=== PATIENT | female | born 1935 | race Caucasian/White ===

== ENCOUNTER 2018-11-03 19:08 | Emergency (ER) | payer OTHER ==
[2018-11-03] MEDS ORDERED: IBUPROFEN 200 MG TAB PO ONE (20:17)
[2018-11-03] MEDS ORDERED: TETANUS & DIPHTHERIA TOX,ADULT 0.5 ML VIAL ONE (20:17)
[2018-11-03] MEDS ORDERED: IBUPROFEN 400 MG TAB ONE (20:17)
--- NOTE | 2018-11-03 20:43 | RAD REPORT ---
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 First carpometacarpal joint arthritic changes a re noted. Soft tissue swelling is seen along the dorsum of the hand. No fracture identified.
--- NOTE | 2018-11-03 20:54 | ER ---
Nurse's Notes [facility] Name: Jeannette Thomas Age: 83 yrs Sex: Female : 1935 Arrival Date: 11/03/2018 Time: 19:10 Bed 30 Private MD: Julisa Patel Diagnosis: Crushing injury of right hand;Abrasion of right hand Presentation: 11/03 19:24 Presenting complaint: Patient states: "The wind was blowing and it came closed on my aj1 hand" Reports pain to left hand, and increasing swelling since 1400 today. Transition of care: patient was not received from another setting of care. Onset of symptoms was November 03, 2018 at 14:00. Risk Assessment: Do you want to hurt yourself or someone else? Patient reports no desire to harm self or others. Initial Sepsis Screen: Does the patient meet any 2 criteria? No. Patient's initial sepsis screen is negative. Does the patient have a suspected source of infection? No. Patient's initial sepsis screen is negative. Care prior to arrival: None. 19:24 Method Of Arrival: Ambulatory [facility] 19:24 Acuity: OSVALDO 4 aj1 Triage Assessment: 19:27 General: Appears in no apparent distress. comfortable, Behavior is calm, cooperative, aj1 appropriate for age. Pain: Complains of pain in left hand Pain currently is 5 out of 10 on a pain scale. Neuro: Level of Consciousness is awake, alert, obeys commands, Oriented to person, place, time, situation. Cardiovascular: Patient's skin is warm and dry. Respiratory: Airway is patent Respiratory effort is even, unlabored, Respiratory pattern is regular, symmetrical. Musculoskeletal: Range of motion: limited in MCP of left little finger, MCP of left ring finger, MCP of left middle finger and MCP of left index finger Swelling present in left hand. Injury Description: Patient reports that her hand got closed in a car door on accident. Historical: - Allergies: 19:27 Ciprofloxacin; aj1 19:27 Crestor; aj1 19:27 FLU VACCINE; aj1 19:27 Fosamax; aj1 19:27 Januvia; aj1 19:27 Minocycline; aj1 19:27 pneumonia vaccine; aj1 19:27 Sulfa (Sulfonamide Antibiotics); aj1 19:27 Victoza 2-Denny; aj1 - Home Meds: 19:27 aspirin 81 mg Oral chew 1 tab once daily [Active]; folic acid 400 mcg Oral tab 1 tab aj1 once daily [Active]; glipizide 10 mg Oral tab 1 tab 2 times per day for Type 2 Diabetes Mellitus [Active]; hydrochlorothiazide 25 mg Oral tab 1 tab once daily [Active]; Lantus 100 unit/mL Sub-Q soln 14 unit daily for Type 2 Diabetes Mellitus [Active]; lisinopril 10 mg Oral tab 1 tab once daily for Hypertension [Active]; metformin 1,000 mg Oral tab 1 tab 2 times per day for Type 2 Diabetes Mellitus [Active]; metoprolol tartrate 50 mg Oral tab 1 tab 2 times per day for Hypertension [Active]; Nexium 40 mg Oral cpDR 1 cap once daily [Active]; simvastatin 5 mg Oral tab 1 tab once daily for Mixed Hyperlipidemia [Active]; - PMHx: 19:27 Anemia; Diabetes - IDDM; Diverticulitis; Gastric Reflux; hiatal hernia; Hyperlipidemia; aj1 Hypertension; PE; PUD; - Immunization history:: Flu vaccine is not up to date. - Social history:: Smoking status: Patient/guardian denies using tobacco. - Ebola Screening: : Patient denies travel to an Ebola-affected area in the 21 days before illness onset. Screenin:51 Abuse screen: Denies threats or abuse. Denies injuries from another. Nutritional wh screening: No deficits noted. Tuberculosis screening: No symptoms or risk factors identified. Fall Risk None identified. Assessment: 19:53 General: Appears in no apparent distress. comfortable, Behavior is calm, cooperative, wh appropriate for age. Pain: Complains of pain in left hand Pain does not radiate. Pain currently is 4 out of 10 on a pain scale. Quality of pain is described as aching. Neuro: Level of Consciousness is awake, alert, obeys commands, Oriented to person, place, time, situation, Appropriate for age. Cardiovascular: Capillary refill < 3 seconds Edema is 2+ to left ankle and right ankle pitting to left ankle and right ankle. Respiratory: Airway is patent Respiratory effort is even, unlabored, Respiratory pattern is regular, symmetrical. GI: Abdomen is flat, non-distended. : No signs and/or symptoms were reported regarding the genitourinary system. EENT: No signs and/or symptoms were reported regarding the EENT system. Derm: Skin is intact, is healthy with good turgor, Skin is pink, warm \\T\\ dry. normal. Musculoskeletal: Range of motion: intact in all extremities. Injury Description: skin tear in left hand. 21:20 Reassessment: Patient appears in no apparent distress at this time. Patient and/or family updated on plan of care and expected duration. Pain level reassessed. Patient is alert, oriented x 3, equal unlabored respirations, skin warm/dry/pink. Patient states feeling better. Vital Signs: 19:27 BP 132 / 70; Pulse 78; Resp 18; Temp 97.5; Pulse Ox 97% on R/A; Weight 83.01 kg (R); aj1 Height 5 ft. 5 in. (165.10 cm) (R); Pain 5/10; 19:55 BP 146 / 87; Pulse 99; Resp 18; Temp 98.4; Pulse Ox 97% ; wh 21:21 BP 110 / 76; Pulse 84; Resp 18; Pulse Ox 99% on R/A; wh 19:27 Body Mass Index 30.45 (83.01 kg, 165.10 cm) aj1 ED Course: 19:10 Patient arrived in ED. rg4 19:11 Julisa Patel MD is Private Physician. rg4 19:26 Triage completed. aj1 19:27 Arm band placed on Patient placed in an exam room. aj1 19:38 Aníbal Mo MD is Attending Physician. kdr 19:51 Mart Cooney is Primary Nurse. 19:51 Patient has correct armband on for positive identification. Bed in low position. Call light in reach. Side rails up X 1. Pulse ox on. NIBP on. 20:27 Hand Left 3 View XRAY In Process Unspecified. EDMS 20:53 Julisa Patel MD is Referral Physician. kdr 21:22 No provider procedures requiring assistance completed. Patient did not have IV access during this emergency room visit. 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 Exp: 07/08/2020. Lot #: [id number]. } Route: IM; Site: right deltoid; 21:05 Follow up: Response: No adverse reaction mg2 20:16 Drug: Motrin 600 mg Route: PO; 21:06 Follow up: Response: No adverse reaction mg2 Outcome: 20:54 Discharge ordered by . ian 21:22 Discharged to home ambulatory. 21:22 Condition: good 21:22 Discharge instructions given to patient, Instructed on discharge instructions, follow up and referral plans. wound care, Demonstrated understanding of instructions, follow-up care, wound care. 21:23 Patient left the ED. Signatures: Dispatcher [employer] EDFlori Ko RN RN aj1 Aníbal Mo MD MD kdr Garcia, Rubi rg4 Mart Cooney Hugo Contreras RN RN mg2
--- NOTE | 2018-11-03 20:54 | EDPHYS ---
Physician Documentation [facility] Name: Jeannette Thomas Age: 83 yrs Sex: Female : 1935 Arrival Date: 11/03/2018 Time: 19:10 Bed 30 Private MD: Julisa Patel ED Physician Aníbal Mo HPI: 11/03 19:51 This 83 yrs old Female presents to ER via Ambulatory with complaints of Hand kdr Injury. 19:51 The patient or guardian reports decreased range of motion, injury, pain, swelling, kdr tenderness. The complaints affect the left hand diffusely. Context: The problem was sustained at home, resulted from a crush injury, by a car door. Onset: The symptoms/episode began/occurred acutely, at 14:00. Modifying factors: The symptoms are alleviated by nothing, the symptoms are aggravated by movement. Associated signs and symptoms: The patient has no apparent associated signs or symptoms. Severity of symptoms: At their worst the symptoms were mild, in the emergency department the symptoms are unchanged. The patient has not experienced similar symptoms in the past. The patient has not recently seen a physician. Historical: - Allergies: 19:27 Ciprofloxacin; aj1 19:27 Crestor; aj1 19:27 FLU VACCINE; aj1 19:27 Fosamax; aj1 19:27 Januvia; aj1 19:27 Minocycline; aj1 19:27 pneumonia vaccine; aj1 19:27 Sulfa (Sulfonamide Antibiotics); aj1 19:27 Victoza 2-Denny; aj1 - Home Meds: 19:27 aspirin 81 mg Oral chew 1 tab once daily [Active]; folic acid 400 mcg Oral tab 1 tab aj1 once daily [Active]; glipizide 10 mg Oral tab 1 tab 2 times per day for Type 2 Diabetes Mellitus [Active]; hydrochlorothiazide 25 mg Oral tab 1 tab once daily [Active]; Lantus 100 unit/mL Sub-Q soln 14 unit daily for Type 2 Diabetes Mellitus [Active]; lisinopril 10 mg Oral tab 1 tab once daily for Hypertension [Active]; metformin 1,000 mg Oral tab 1 tab 2 times per day for Type 2 Diabetes Mellitus [Active]; metoprolol tartrate 50 mg Oral tab 1 tab 2 times per day for Hypertension [Active]; Nexium 40 mg Oral cpDR 1 cap once daily [Active]; simvastatin 5 mg Oral tab 1 tab once daily for Mixed Hyperlipidemia [Active]; - PMHx: 19:27 Anemia; Diabetes - IDDM; Diverticulitis; Gastric Reflux; hiatal hernia; Hyperlipidemia; aj1 Hypertension; PE; PUD; - Immunization history:: Flu vaccine is not up to date. - Social history:: Smoking status: Patient/guardian denies using tobacco. - Ebola Screening: : Patient denies travel to an Ebola-affected area in the 21 days before illness onset. ROS: 19:51 Constitutional: Negative for fever, chills, and weight loss. kdr 19:51 MS/extremity: Positive for injury or acute deformity, decreased range of motion, ecchymosis, laceration, pain, swelling, tenderness, of the dorsal aspect of proximal phalanx of left index finger, dorsal aspect of proximal phalanx of left middle finger and dorsum of left hand. Exam: 19:51 Constitutional: This is a well developed, well nourished patient who is awake, alert, kdr and in no acute distress. 19:51 Musculoskeletal/extremity: Extremities: grossly normal except: noted in the dorsal aspect of proximal phalanx of left index finger, dorsal aspect of proximal phalanx of left middle finger and dorsum of left hand: ROM: no acute changes, intact in all extremities, Circulation is intact in all extremities. Sensation intact. Vital Signs: 19:27 BP 132 / 70; Pulse 78; Resp 18; Temp 97.5; Pulse Ox 97% on R/A; Weight 83.01 kg (R); aj1 Height 5 ft. 5 in. (165.10 cm) (R); Pain 5/10; 19:55 BP 146 / 87; Pulse 99; Resp 18; Temp 98.4; Pulse Ox 97% ; wh 21:21 BP 110 / 76; Pulse 84; Resp 18; Pulse Ox 99% on R/A; wh 19:27 Body Mass Index 30.45 (83.01 kg, 165.10 cm) aj1 MDM: 19:51 Data reviewed: vital signs, nurses notes, radiologic studies. Counseling: I had a kdr detailed discussion with the patient and/or guardian regarding: the historical points, exam findings, and any diagnostic results supporting the discharge/admit diagnosis, radiology results, the need for outpatient follow up. 20:54 Patient medically screened. [facility] 11/03 19:51 Order name: Hand Left 3 View XRAY; Complete Time: 20:52 [facility] 11/03 19:51 Order name: Misc. Order: Clean and dress wound on hand. 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 Exp: 07/08/2020. Lot #: [id number]. } Route: IM; Site: right deltoid; 21:05 Follow up: Response: No adverse reaction mg2 20:16 Drug: Motrin 600 mg Route: PO; 21:06 Follow up: Response: No adverse reaction mg2 Disposition: 11/03/18 20:54 Discharged to Home. Impression: Crushing injury of right hand, Abrasion of right hand. - Condition is Stable. - Discharge Instructions: VIS, Tetanus, Diphtheria (Td) - CDC, Abrasion, [id number], Crush Injury of the Hand, [id number]. - Prescriptions for Ibuprofen 600 mg Oral Tablet - take 1 tablet by ORAL route every 6 hours As needed take with food; 30 tablet. - Medication Reconciliation Form, Thank You Letter form. - Follow up: Julisa Patel MD; When: 2 - 3 days; Reason: If symptoms return, Further diagnostic work-up, Recheck today's complaints, Continuance of care, Re-evaluation by your physician. - Problem is new. - Symptoms have improved. Signatures: Dispatcher [employer] [facility] Flori Alejandro RN RN aj1 Aníbal Mo MD MD [facility] Mart Cooney Hugo Contreras RN mg2 Corrections: (The following items were deleted from the chart) 21:23 20:54 11/03/2018 20:54 Discharged to Home. Impression: Crushing injury of right hand; wh Abrasion of right hand. Condition is Stable. Forms are Medication Reconciliation Form, Thank You Letter, Antibiotic Education, Prescription Opioid Use. Follow up: Julisa Patel; When: 2 - 3 days; Reason: If symptoms return, Further diagnostic work-up, Recheck today's complaints, Continuance of care, Re-evaluation by your physician. Problem is new. Symptoms have improved. kdr
== END 2018-11-03 21:23 | disposition home or self-care (01) ==
LOC: ER 19:08
DX: S60.511A Abrasion of right hand, initial encounter (principal); S67.21XA Crushing injury of right hand, initial encounter; W23.0XXA Caught, crushed, jammed, or pinched between moving objects, initial encounter; Y93.9 Activity, unspecified; Y92.009 Unspecified place in unspecified non-institutional (private) residence as the place of occurrence of the external cause; Z23 Encounter for immunization; Z79.4 Long term (current) use of insulin; Z79.82 Long term (current) use of aspirin; Z88.2 Allergy status to sulfonamides; Z88.3 Allergy status to other anti-infective agents; Z88.7 Allergy status to serum and vaccine; Z88.8 Allergy status to other drugs, medicaments and biological substances; I10 Essential (primary) hypertension; E11.9 Type 2 diabetes mellitus without complications; E78.5 Hyperlipidemia, unspecified
CPT/HCPCS: 90471; 90714; 99283

== ENCOUNTER 2019-07-20 04:04 | Emergency (ER) | payer OTHER ==
--- OUTSIDE RECORDS SUMMARY | 2019-07-20 04:06 | XMS REPORT ---
:1935 [facility] Address [address] [place] [address] Care Team Providers Name Role Phone Unavailable Unavailable Unavailable Payers Payer Name Policy Type Policy Number Effective Date Expiration Date Problems This patient has no known problems. Allergies, Adverse Reactions, Alerts Allergy Name Allergy Status Severity Reaction(s) Onset Inactive Treating Comments Type Date Date Clinician atorvastatin DA Active U calcium 10-14 00:00: 00 rosuvastatin DA Active U calcium 10-14 00:00: 00 Sulfa DA Active U (Sulfonamide 10-14 Antibiotics) 00:00: 00 cefaclor DA Active U 10-14 00:00: 00 alendronate DA Active U sodium 10-14 00:00: 00 Medications This patient has no known medications. Encounters Start End Encounter Admission Attending Care Care Encounter Date/Time Date/Time Type Type Clinicians Facility Department ID 2019-01-11 2019-01-[address] [facility] [id number] 09:10:00 09:10:00
[2019-07-20] MEDS ORDERED: ASPIRIN 81 MG CHEWABLE TABLET ONE (04:40)
[2019-07-20] MEDS ORDERED: NA CHLORIDE 0.9% 1,000 ML ONE (04:41)
[2019-07-20] MEDS ORDERED: ONDANSETRON 4 MG/2 ML VIAL ONE (04:41)
[2019-07-20] MEDS ORDERED: MECLIZINE HCL 12.5 MG TAB ONE (04:41)
[2019-07-20 04:44] LABS: Protime INR 0.91
[2019-07-20 04:46] LABS: Absolute Lymphocytes (CBC) 1.4 K/uL (0.7-4.9); Basophils % 1.6 % (0-1.3); Hematocrit 35.8 % (36.0-45.0); RBC Red Blood Cell Count 3.84 M/uL (3.86-4.86)
[2019-07-20 05:09] LABS: ALT/SGPT 14 U/L (12-78); AST/SGOT 9 U/L (15-37); Albumin 3.2 g/dL (3.4-5.0); Alkaline Phosphatase 40 U/L (45-117); BUN Blood Urea Nitrogen 16 mg/dL (7-18); Bicarbonate 23 mmol/L (21-32); Bilirubin Direct < 0.1 mg/dL (0-0.2); Bilirubin Total 0.2 mg/dL (0.2-1.0); C-Reactive Protein < 2.90 mg/L (<3.00); Glucose Level 205 mg/dL (74-106); Magnesium 1.7 mg/dL (1.8-2.4); NT PRO-BNP 419 pg/mL (<450); Protein, Total 6.3 g/dL (6.4-8.2); Sodium Level 136 mmol/L (136-145); Troponin (Emerg Dept Use Only) < 0.02 ng/mL (0.0-0.045)
[2019-07-20] MEDS ORDERED: MAGNESIUM SULFATE 1 gm IVPB 1 GM/100 ML BAG IV ONE (05:19)
[2019-07-20 06:19] LABS: Urine Blood NEGATIVE (NEG); Urine Glucose TRACE (NEG); Urine Protein NEGATIVE (NEG); Urine Specific Gravity 1.025 (1.005-1.030)
--- NOTE | 2019-07-20 07:20 | EDPHYS ---
Physician Documentation [facility] Name: Jeannette Thomas Age: 84 yrs Sex: Female : 1935 Arrival Date: 07/20/2019 Time: 04:07 Bed 20 Private MD: TRUMAN Physician Angel Cooley HPI: 07/19 04:29 This 84 yrs old Female presents to ER via Ambulatory with complaints of heaven Nausea, Dizziness. 04:29 The patient presents to the emergency department with nausea, vomiting. heaven 04:30 Onset: The symptoms/episode began/occurred just prior to arrival. Possible causes: heaven unknown. The symptoms are aggravated by movement, The symptoms are alleviated by remaining still. The patient presents with sense of spinning. Context: occurred at home. Modifying factors: The symptoms are alleviated by closing eyes, holding head still, the symptoms are aggravated by movement of head, standing up, changing position. Associated signs and symptoms: Pertinent positives: nausea. Severity of symptoms: At their worst the symptoms were mild in the emergency department the symptoms are unchanged. Historical: - Allergies: 04:31 Ciprofloxacin; bb 04:31 Crestor; bb 04:31 FLU VACCINE; bb 04:31 Fosamax; bb 04:31 Januvia; bb 04:31 Minocycline; bb 04:31 pneumonia vaccine; bb 04:31 Sulfa (Sulfonamide Antibiotics); bb 04:31 Victoza 2-Denny; bb - Home Meds: 04:31 aspirin 81 mg Oral chew 1 tab once daily [Active]; folic acid 400 mcg Oral tab 1 tab bb once daily [Active]; glipizide 10 mg Oral tab 1 tab 2 times per day for Type 2 Diabetes Mellitus [Active]; Lantus 100 unit/mL Sub-Q soln 18 unit daily for Type 2 Diabetes Mellitus [Active]; metformin 1,000 mg Oral tab 1 tab 2 times per day for Type 2 Diabetes Mellitus [Active]; Nexium 40 mg Oral cpDR 1 cap once daily [Active]; lisinopril 10 mg Oral tab 1 tab once daily for Hypertension [Active]; metoprolol tartrate 50 mg Oral tab 1 tab 2 times per day for Hypertension [Active]; hydrochlorothiazide 25 mg Oral tab 1 tab once daily [Active]; simvastatin 5 mg Oral tab 1 tab once daily for Mixed Hyperlipidemia [Active]; calcium 1200mg/ Vit D 3 1000mcg daily [Active]; methenamine hippurate 1 gram oral tab 1 tab 2 times per day [Active]; estradol cream [Active]; iron sulfate 325 mg daily [Active]; - PMHx: 04:31 Anemia; Diabetes - IDDM; Diverticulitis; Gastric Reflux; hiatal hernia; Hyperlipidemia; bb Hypertension; PE; PUD; epidural steroid injections; colitis; irregular heart beat; peptic ulcer; colonoscopy; - PSHx: 04:31 Hysterectomy; cyctocyle and rectocyle repair; parathyroid surgery; endoscopy; bb - Immunization history:: Adult Immunizations up to date. - Social history:: Smoking status: Patient denies any tobacco usage or history of. - Family history:: not pertinent. ROS: 04:30 Constitutional: Negative for fever, chills, and weight loss, Eyes: Negative for injury, heaven pain, redness, and discharge, ENT: Negative for injury, pain, and discharge, Neck: Negative for injury, pain, and swelling, Cardiovascular: Negative for chest pain, palpitations, and edema, Respiratory: Negative for shortness of breath, cough, wheezing, and pleuritic chest pain, Abdomen/GI: Negative for abdominal pain, nausea, vomiting, diarrhea, and constipation, Back: Negative for injury and pain, : Negative for injury, bleeding, discharge, and swelling, MS/Extremity: Negative for injury and deformity, Skin: Negative for injury, rash, and discoloration, Psych: Negative for depression, anxiety, suicide ideation, homicidal ideation, and hallucinations, Allergy/Immunology: Negative for hives, rash, and allergies, Endocrine: Negative for neck swelling, polydipsia, polyuria, polyphagia, and marked weight changes. 04:30 Neuro: Positive for dizziness. Exam: 04:30 Constitutional: This is a well developed, well nourished patient who is awake, alert, heaven and in no acute distress. Head/Face: Normocephalic, atraumatic. Eyes: Pupils equal round and reactive to light, extra-ocular motions intact. Lids and lashes normal. Conjunctiva and sclera are non-icteric and not injected. Cornea within normal limits. Periorbital areas with no swelling, redness, or edema. ENT: Nares patent. No nasal discharge, no septal abnormalities noted. Tympanic membranes are normal and external auditory canals are clear. Oropharynx with no redness, swelling, or masses, exudates, or evidence of obstruction, uvula midline. Mucous membranes moist. Neck: Trachea midline, no thyromegaly or masses palpated, and no cervical lymphadenopathy. Supple, full range of motion without nuchal rigidity, or vertebral point tenderness. No Meningismus. Chest/axilla: Normal chest wall appearance and motion. Nontender with no deformity. No lesions are appreciated. Cardiovascular: Regular rate and rhythm with a normal S1 and S2. No gallops, murmurs, or rubs. Normal PMI, no JVD. No pulse deficits. Respiratory: Lungs have equal breath sounds bilaterally, clear to auscultation and percussion. No rales, rhonchi or wheezes noted. No increased work of breathing, no retractions or nasal flaring. Abdomen/GI: Soft, non-tender, with normal bowel sounds. No distension or tympany. No guarding or rebound. No evidence of tenderness throughout. Back: No spinal tenderness. No costovertebral tenderness. Full range of motion. Female : Normal external genitalia. Skin: Warm, dry with normal turgor. Normal color with no rashes, no lesions, and no evidence of cellulitis. MS/ Extremity: Pulses equal, no cyanosis. Neurovascular intact. Full, normal range of motion. Neuro: Awake and alert, GCS 15, oriented to person, place, time, and situation. Cranial nerves II-XII grossly intact. Motor strength 5/5 in all extremities. Sensory grossly intact. Cerebellar exam normal. Normal gait. Psych: Awake, alert, with orientation to person, place and time. Behavior, mood, and affect are within normal limits. Vital Signs: 04:18 BP 172 / 61; Pulse 76; Resp 16 S; Temp 98.6(O); Pulse Ox 99% on R/A; Weight 81.65 kg bb (R); Height 5 ft. 4 in. (162.56 cm) (R); Pain 0/10; 04:35 BP 134 / 54; Pulse 77; Resp 18; Temp 98.5; Pulse Ox 99% ; Pain 0/10; jv1 05:30 BP 126 / 52; Pulse 89; Resp 18; Temp 98; Pulse Ox 99% ; Pain 2/10; jv1 06:47 BP 118 / 47; Pulse 82; Resp 18; Temp 98.5; Pulse Ox 99% ; Pain 0/10; jv1 07:31 BP 164 / 77; Pulse 80; Resp 23; Pulse Ox 100% ; bp 04:18 Body Mass Index 30.90 (81.65 kg, 162.56 cm) bb MDM: 04:10 Patient medically screened. [facility] 04:32 Data reviewed: vital signs, nurses notes, lab test result(s), EKG, radiologic studies, [facility] CT scan, doppler, plain films. 07/19 04:28 Order name: Glucose, Ancillary Testing; Complete Time: 05:11 EDMS 07/19 04:29 Order name: Basic Metabolic Panel; Complete Time: 05:11 [facility] 07/19 04:29 Order name: CBC with Diff; Complete Time: 05:11 [facility] 07/19 04:29 Order name: LFT's; Complete Time: 05:11 [facility] 07/19 04:29 Order name: Magnesium; Complete Time: 05:11 [facility] 07/19 04:29 Order name: NT PRO-BNP; Complete Time: 05:11 [facility] 07/19 04:29 Order name: PT-INR; Complete Time: 05:11 [facility] 07/19 04:29 Order name: Troponin (emerg Dept Use Only); Complete Time: 05:11 [facility] 07/19 04:29 Order name: XRAY Chest (1 view) [facility] 07/19 04:29 Order name: Urine Culture [facility] 07/19 04:29 Order name: CT Head Brain wo Cont [facility] 07/19 04:29 Order name: Sed Rate; Complete Time: 05:11 [facility] 07/19 04:29 Order name: CRP; Complete Time: 05:11 [facility] 07/19 06:11 Order name: Urine Dipstick--Ancillary (enter results) ar5 07/19 04:29 Order name: Cardiac monitoring; Complete Time: 04:37 [facility] 07/19 04:29 Order name: EKG - Nurse/Tech; Complete Time: 04:37 [facility] 07/19 04:29 Order name: IV Saline Lock; Complete Time: 04:37 [facility] 07/19 04:29 Order name: Labs collected and sent; Complete Time: 04:37 [facility] 07/19 04:29 Order name: O2 Per Protocol; Complete Time: 04:37 [facility] 07/19 04:29 Order name: O2 Sat Monitoring; Complete Time: 04:38 [facility] 07/19 04:29 Order name: Urine Dipstick-Ancillary (obtain specimen); Complete Time: 06:50 [facility] 07/19 04:29 Order name: US Carotid Artery Bilateral heaven Administered Medications: 04:40 Drug: Meclizine 50 mg Route: PO; jv1 05:59 Follow up: Response: No adverse reaction jv1 04:40 Drug: Zofran (Ondansetron) 4 mg Route: IVP; Site: left antecubital; jv1 05:59 Follow up: Response: No adverse reaction; Nausea is decreased jv1 04:40 Drug: Aspirin 81 mg Route: PO; jv1 06:00 Follow up: Response: No adverse reaction jv1 04:40 Drug: NS 0.9% 1000 ml Route: IV; Rate: 1 bolus; Site: left antecubital; jv1 06:13 Follow up: Response: No adverse reaction; IV Status: Completed infusion jv1 05:20 Drug: Magnesium Sulfate 1 grams Route: IVPB; Infused Over: 1 hrs; Site: left jv1 antecubital; 06:49 Follow up: Response: No adverse reaction; IV Status: Completed infusion jv1 Disposition: 07/20/19 07:19 Discharged to Home. Impression: Dizziness and giddiness, Vertiginous syndromes in diseases classified elsewhere, unspecified ear, Hypomagnesemia, Type 1 diabetes mellitus. - Condition is Stable. - Discharge Instructions: Type 1 Diabetes Mellitus, Diagnosis, Adult, Dizziness, Hypomagnesemia, Diabetes Mellitus and Food, Aspirin and Your Heart, Dizziness, [id number], Type 1 Diabetes Mellitus, Self Care, Adult, Type 1 Diabetes Mellitus, Diagnosis, Adult, [id number], Type 1 Diabetes Mellitus, Self Care, Adult, [id number]-[id number]. - Prescriptions for Meclizine 25 mg Oral Tablet - take 1 tablet by ORAL route every 8 hours As needed; 30 tablet. Zofran 4 mg Oral Tablet - take 1 tablet by ORAL route every 12 hours As needed; 14 tablet. - Medication Reconciliation Form, Thank You Letter, Antibiotic Education, Prescription Opioid Use form. - Follow up: Private Physician; When: 2 - 3 days; Reason: Recheck today's complaints, Continuance of care, Re-evaluation by your physician. Follow up: Sulaiman Dalal; When: 2 - 3 days; Reason: Recheck today's complaints, Re-evaluation by your physician. - Problem is new. - Symptoms have improved. Signatures: Dispatcher [employer] EDMS Angel Cooley MD MD cha Ballard, Brenda, RN RN Oscar Wills, RN RN Mavis Molina, RN RN jv1 Corrections: (The following items were deleted from the chart) 07:47 07:19 07/20/2019 07:19 Discharged to Home. Impression: Dizziness and giddiness; bp Vertiginous syndromes in diseases classified elsewhere, unspecified ear; Hypomagnesemia; Type 1 diabetes mellitus. Condition is Stable. Discharge Instructions: Type 1 Diabetes Mellitus, Diagnosis, Adult, Dizziness, Hypomagnesemia, Diabetes Mellitus and Food, Aspirin and Your Heart, Dizziness, [id number], Type 1 Diabetes Mellitus, Self Care, Adult, Type 1 Diabetes Mellitus, Diagnosis, Adult, Hmuo-yr-Snrt, Type 1 Diabetes Mellitus, Self Care, Adult, [id number]. Prescriptions for Meclizine 25 mg Oral Tablet - take 1 tablet by ORAL route every 8 hours As needed; 30 tablet, Zofran 4 mg Oral Tablet - take 1 tablet by ORAL route every 12 hours As needed; 14 tablet. and Forms are Medication Reconciliation Form, Thank You Letter, Antibiotic Education, Prescription Opioid Use. Follow up: Private Physician; When: 2 - 3 days; Reason: Recheck today's complaints, Continuance of care, Re-evaluation by your physician. Follow up: Sulaiman Dalal; When: 2 - 3 days; Reason: Recheck today's complaints, Re-evaluation by your physician. Problem is new. Symptoms have improved. heaven
--- NOTE | 2019-07-20 07:20 | ER ---
Nurse's Notes [facility] Name: Jeannette Thomas Age: 84 yrs Sex: Female : 1935 Arrival Date: 07/20/2019 Time: 04:07 Bed 20 Private MD: Diagnosis: Dizziness and giddiness;Vertiginous syndromes in diseases classified elsewhere, unspecified ear;Hypomagnesemia;Type 1 diabetes mellitus Presentation: 07/19 04:18 Chief complaint: Patient states: she woke up this morning about 0200 feeling dizzy, bb nauseous, the room spinning, anytime she moves her head she feels dizzy and nauseous. Coronavirus screen: Patient denies fever greater than 100.4F, cough, shortness of breath, or difficulty breathing. Proceed with normal triage process. Ebola Screen: No symptoms or risks identified at this time. Initial Sepsis Screen: Does the patient meet any 2 criteria? No. Patient's initial sepsis screen is negative. Does the patient have a suspected source of infection? No. Patient's initial sepsis screen is negative. Risk Assessment: Do you want to hurt yourself or someone else? Patient reports no desire to harm self or others. Onset of symptoms was July 20, 2019. 04:18 Method Of Arrival: Ambulatory bb 04:18 Acuity: OSVALDO 3 bb Triage Assessment: 05:02 General: Behavior is calm, cooperative, appropriate for age. jv1 Historical: - Allergies: 04:31 Ciprofloxacin; bb 04:31 Crestor; bb 04:31 FLU VACCINE; bb 04:31 Fosamax; bb 04:31 Januvia; bb 04:31 Minocycline; bb 04:31 pneumonia vaccine; bb 04:31 Sulfa (Sulfonamide Antibiotics); bb 04:31 Victoza 2-Denny; bb - Home Meds: 04:31 aspirin 81 mg Oral chew 1 tab once daily [Active]; folic acid 400 mcg Oral tab 1 tab bb once daily [Active]; glipizide 10 mg Oral tab 1 tab 2 times per day for Type 2 Diabetes Mellitus [Active]; Lantus 100 unit/mL Sub-Q soln 18 unit daily for Type 2 Diabetes Mellitus [Active]; metformin 1,000 mg Oral tab 1 tab 2 times per day for Type 2 Diabetes Mellitus [Active]; Nexium 40 mg Oral cpDR 1 cap once daily [Active]; lisinopril 10 mg Oral tab 1 tab once daily for Hypertension [Active]; metoprolol tartrate 50 mg Oral tab 1 tab 2 times per day for Hypertension [Active]; hydrochlorothiazide 25 mg Oral tab 1 tab once daily [Active]; simvastatin 5 mg Oral tab 1 tab once daily for Mixed Hyperlipidemia [Active]; calcium 1200mg/ Vit D 3 1000mcg daily [Active]; methenamine hippurate 1 gram oral tab 1 tab 2 times per day [Active]; estradol cream [Active]; iron sulfate 325 mg daily [Active]; - PMHx: 04:31 Anemia; Diabetes - IDDM; Diverticulitis; Gastric Reflux; hiatal hernia; Hyperlipidemia; bb Hypertension; PE; PUD; epidural steroid injections; colitis; irregular heart beat; peptic ulcer; colonoscopy; - PSHx: 04:31 Hysterectomy; cyctocyle and rectocyle repair; parathyroid surgery; endoscopy; bb - Immunization history:: Adult Immunizations up to date. - Social history:: Smoking status: Patient denies any tobacco usage or history of. - Family history:: not pertinent. Screenin:38 Abuse screen: Denies threats or abuse. Nutritional screening: No deficits noted. ea Tuberculosis screening: No symptoms or risk factors identified. Fall Risk None identified. Assessment: 04:30 General: Appears in no apparent distress. comfortable, well groomed. Pain: Complains of jv1 pain in back of the neck Pain does not radiate. Pain currently is 3 out of 10 on a pain scale. Neuro: Level of Consciousness is awake, alert, obeys commands, Oriented to person, place, time, situation, Appropriate for age Candy Vendor are equal bilaterally Moves all extremities. Full function Speech is normal, Facial symmetry appears normal, Reports dizziness, since 02:00 am today Denies weakness. Cardiovascular: Denies chest pain, Heart tones S1 S2 present Capillary refill < 3 seconds. Respiratory: Airway is patent Respiratory effort is even, unlabored, Respiratory pattern is regular, symmetrical, Breath sounds are clear bilaterally. GI: Abdomen is round non-distended, Bowel sounds present X 4 quads. Abd is soft and non tender. : No signs and/or symptoms were reported regarding the genitourinary system. EENT: No signs and/or symptoms were reported regarding the EENT system. Derm: Skin is intact, is healthy with good turgor. Musculoskeletal: No signs and/or symptoms reported regarding the musculoskeletal system. Capillary refill < 3 seconds, Range of motion: intact in all extremities. 04:58 Reassessment: pt taken to CT. jv1 05:07 Reassessment: pt back from CT. jv1 05:58 Reassessment: Patient appears in no apparent distress at this time. No changes from jv1 previously documented assessment. Patient and/or family updated on plan of care and expected duration. Pain level reassessed. Patient is alert, oriented x 3, equal unlabored respirations, skin warm/dry/pink. 06:47 Reassessment: Patient appears in no apparent distress at this time. No changes from jv1 previously documented assessment. Patient and/or family updated on plan of care and expected duration. Pain level reassessed. Patient is alert, oriented x 3, equal unlabored respirations, skin warm/dry/pink. Patient states feeling better. Patient states symptoms have improved. 07:00 Reassessment: RECD REPORT FROM MAVIS RODRIGUEZ. 84YO WF P/W VERTIGO AND NAUSEA. PT TO U/S. bp 07:20 Reassessment: PT RETURNED FROM U/S. bp 07:30 Reassessment: D/C ON HOLD FOR RAD AND LAB RESULTS. bp 07:45 Reassessment: PT D/C HOME AMBULATORY WITH STEADY GAIT, DX WITH DIZZINESS. bp Vital Signs: 04:18 BP 172 / 61; Pulse 76; Resp 16 S; Temp 98.6(O); Pulse Ox 99% on R/A; Weight 81.65 kg bb (R); Height 5 ft. 4 in. (162.56 cm) (R); Pain 0/10; 04:35 BP 134 / 54; Pulse 77; Resp 18; Temp 98.5; Pulse Ox 99% ; Pain 0/10; jv1 05:30 BP 126 / 52; Pulse 89; Resp 18; Temp 98; Pulse Ox 99% ; Pain 2/10; jv1 06:47 BP 118 / 47; Pulse 82; Resp 18; Temp 98.5; Pulse Ox 99% ; Pain 0/10; jv1 07:31 BP 164 / 77; Pulse 80; Resp 23; Pulse Ox 100% ; bp 04:18 Body Mass Index 30.90 (81.65 kg, 162.56 cm) ED Course: 04:07 Patient arrived in ED. cl3 04:10 Angel Cooley MD is Attending Physician. heaven 04:21 Triage completed. bb 04:30 Inserted saline lock: 20 gauge in left antecubital area, using aseptic technique. Blood ea collected. 04:31 Arm band placed on Patient placed in an exam room. EKG completed in triage. Results bb shown to MD. 04:38 Placed in gown. Bed in low position. Call light in reach. Side rails up X2. ea 05:11 XRAY Chest (1 view) In Process Unspecified. EDMS 05:19 CT Head Brain wo Cont In Process Unspecified. EDMS 07:19 Sulaiman Dalal MD is Referral Physician. heaven 07:29 Oscar Conn, JENNIFER is Primary Nurse. bp 07:40 US Carotid Artery Bilateral In Process Unspecified. EDMS 07:45 No provider procedures requiring assistance completed. IV discontinued, intact, bp bleeding controlled, No redness/swelling at site. Pressure dressing applied. Administered Medications: 04:40 Drug: Meclizine 50 mg Route: PO; jv1 05:59 Follow up: Response: No adverse reaction jv1 04:40 Drug: Zofran (Ondansetron) 4 mg Route: IVP; Site: left antecubital; jv1 05:59 Follow up: Response: No adverse reaction; Nausea is decreased jv1 04:40 Drug: Aspirin 81 mg Route: PO; jv1 06:00 Follow up: Response: No adverse reaction jv1 04:40 Drug: NS 0.9% 1000 ml Route: IV; Rate: 1 bolus; Site: left antecubital; jv1 06:13 Follow up: Response: No adverse reaction; IV Status: Completed infusion jv1 05:20 Drug: Magnesium Sulfate 1 grams Route: IVPB; Infused Over: 1 hrs; Site: left jv1 antecubital; 06:49 Follow up: Response: No adverse reaction; IV Status: Completed infusion jv1 Outcome: 07:19 Discharge ordered by . heaven 07:46 Discharged to home ambulatory. bp 07:46 Condition: stable 07:46 Discharge instructions given to patient, Instructed on discharge instructions, follow up and referral plans. medication usage, Demonstrated understanding of instructions, follow-up care, medications, Prescriptions given X 2. 07:47 Patient left the ED. bp Signatures: Dispatcher [employer] Angel Starr MD MD cha Ballard, Brenda, RN RN bb Anastasia Rosales, RN RN Oscar Collier RN RN bp Mavis Alex RN RN Steven Garsia cl3
[2019-07-20 07:59] VITALS: TEMP 98.5
[2019-07-20 08:01] VITALS: BP 164/77; O2SAT 100
--- NOTE | 2019-07-20 08:39 | RAD REPORT ---
EXAM DESCRIPTION: USCarotid Artery Bilateral07/20/2019 7:40 am CLINICAL HISTORY: syncope COMPARISON: None FINDINGS: The velocity of the right internal carotid artery equals 72 cm/sec. The right ICA/CCA rati o 0.9 The velocity of the left internal carotid artery equals 121 cm/sec. The left ICA/CCA ratio 1. Mild plaque is present within the carotid arteries. The vertebral arteries demonstrate antegrade flow IMPRESSION: Mild plaque within the carotid arteries without evidence of a hemodynamically significan t stenosis NASCET criteria used. Mild 0-49% stenosis Moderate 50-69% stenosis Severe 70-99% stenosis
--- NOTE | 2019-07-20 09:09 | RAD REPORT ---
EXAM DESCRIPTION: Waldemar Single View07/20/2019 5:10 am CLINICAL HISTORY: Chest pain COMPARISON: 2016 FINDINGS: The lungs appear clear of acute infiltrate. The heart is normal size. Prominent right epi cardial fat IMPRESSION: No acute abnormalities displayed
--- NOTE | 2019-07-20 11:30 | RAD REPORT ---
EXAM DESCRIPTION: CT - Head Brain Wo Cont - 07/20/2019 6:18 am CLINICAL HISTORY: DIZZINESS COMPARISON: None. TECHNIQUE: CT HEAD WITHOUT IV CONTRAST on 07/20/2019 4:29 AM CDT This exam was performed according to our departmental dose-optimization program, which includes autom ated exposure control, adjustment of the mA and/or kV according To patient size and/or use of iterative reconstruction technique. FINDINGS: There is no acute hemorrhage, mass effect or midline shift. There is a small focus of ence phalomalacia within the right cerebellum. There is no hydrocephalus. There is no significant volume l oss for age. There are mild patchy hypodensities within the periventricular and subcortical white mat ter, consistent with microangiopathic ischemic changes. The calvarium is intact. Orbits and globes are unremarkable. The paranasal sinuses are clear. Mastoid air cells are clear. IMPRESSION: No acute intracranial findings. Electronically signed by: Blu Quigley MD 07/20/2019 5:29 AM CDT Due to temporary technical issues with the PACS/Fluency reporting system, reports are being signed by the in house radiologist as a courtesy to ensure prompt reporting. The interpreting radiologist is f ully responsible for the content of the report.
--- NOTE | 2019-07-22 14:24 | EKG ---
Test Date: 2019-07-20 Test Time: 04:19:16 [employer] Forms Builder: LUIS F MEASUREMENT RESULTS: Intervals: Rate: 73 MT: 140 QRSD: 94 QT: 410 QTc: 451 [place]: P: 26 MT: 140 QRS: -1 T: 37 INTERPRETIVE STATEMENTS: Normal sinus rhythm Inferior infarct, age undetermined Possible Anterior infarct, age undetermined Abnormal ECG Compared to ECG 04/20/2016 23:42:54 Myocardial infarct finding now present Ventricular premature complex(es) no longer present Electronically Signed On 07-22-19 14:23:00 CDT by Donnie Vale
== END 2019-07-20 07:47 | disposition home or self-care (01) ==
LOC: ER 04:04
DX: R42 Dizziness and giddiness (principal); H82.9 Vertiginous syndromes in diseases classified elsewhere, unspecified ear; E83.42 Hypomagnesemia; E10.9 Type 1 diabetes mellitus without complications; R11.0 Nausea; I10 Essential (primary) hypertension; E78.5 Hyperlipidemia, unspecified; Z79.4 Long term (current) use of insulin; Z79.82 Long term (current) use of aspirin; Z88.1 Allergy status to other antibiotic agents; Z88.7 Allergy status to serum and vaccine; Z91.048 Other nonmedicinal substance allergy status
CPT/HCPCS: 96365; 96361; 87088; 85025; 87086; 80048; 36415; 83735; 85610; 82947; 80076; 85652; 81003; 84484; 83880; 86140; 70450; 71045; 93880; 96375; 99284; J7030; J3475; J2405; 93005; J8597

== ENCOUNTER 2019-08-25 13:05 | Emergency (ER) | payer OTHER ==
--- OUTSIDE RECORDS SUMMARY | 2019-08-25 13:07 | XMS REPORT ---
:1935 Author Organization [facility] t Address [address] [place] [address] Care Team Providers Name Role Phone Unavailable Unavailable Unavailable Payers Payer Name Policy Type Policy Number Effective Date Expiration D ate Problems This patient has no known problems. Allergies, Adverse Reactions, Alerts Allergy Name Allergy Status Severity Reaction(s) Onset Inactive Treat ing Comments Type Date Date Clinician atorvastatin DA [...] Clinicians Facility Department ID 2019-01-11 2019-01-11 Outpatient [facility] [address] 09:10:00 09:10:00
--- NOTE | 2019-08-25 14:15 | RAD REPORT ---
EXAM DESCRIPTION: RAD - Chest Single View - 08/25/2019 1:58 pm CLINICAL HISTORY: Dizziness, syncope COMPARISON: Portable July 19 TECHNIQUE: AP portable chest image was obtained 08/25/2019 1:58 pm . FINDINGS: No peripheral mass or consolidation. Prominent pericardial fat pad present at the right ca rdiophrenic angle. The interstitial pattern is prominent but unchanged. No significant failure or vol ume overload. Heart and vasculature are normal. No measurable pleural effusion and no pneumothorax. N o acute bony abnormality seen. No acute aortic findings suspected. IMPRESSION: No acute cardiopulmonary process. No significant change from comparison.
--- NOTE | 2019-08-25 14:17 | RAD REPORT ---
EXAM DESCRIPTION: CT - Head Brain Wo Cont - 08/25/2019 2:09 pm CLINICAL HISTORY: DIZZINESS COMPARISON: Head Brain Wo Cont dated 07/20/2019 TECHNIQUE: Axial 5 mm thick images of the head were obtained without IV contrast. All CT scans are performed using dose optimization technique as appropriate and may include automated exposure control or mA/KV adjustment according to patient size. FINDINGS: No intracranial hemorrhage, mass, edema or shift of mid-line structures. No acute infarcti on changes seen. Atrophy changes are present along with mild chronic ischemic change. Ventricles are in proportion to volume loss. Intracranial findings match comparison. Mastoid air cells are very small. No acute mastoid or middle ear finding suspected. No acute paranasa l sinus finding. No acute bony findings. IMPRESSION: Negative non-contrast CT head examination for acute finding. Detailed findings are seen to comparison imaging.
[2019-08-25 14:26] LABS: Urine Blood 2+ (NEG); Urine Glucose TRACE (NEG); Urine Protein NEGATIVE (NEG); Urine pH 6.5 (5.0-7.0)
[2019-08-25 14:33] LABS: Absolute Lymphocytes (CBC) 0.7 K/uL (0.7-4.9); Basophils % 0.9 % (0-1.3); Hematocrit 37.3 % (36.0-45.0); Lymphocytes % 7.9 % (15.3-44.8); MPV 11.7 fL (7.6-11.3); RBC Red Blood Cell Count 3.94 M/uL (3.86-4.86)
[2019-08-25 14:35] LABS: Urine Bacteria LOADED /HPF (<20); Urine Culture Reflex Order REFLEXED; Urine RBC >50 /HPF (NONE SEEN)
[2019-08-25] MEDS ORDERED: CEFTRIAXONE/SWI 1gm 1 GM/10 ML SYR ONE (14:38)
[2019-08-25 14:54] LABS: ALT/SGPT 13 U/L (12-78); AST/SGOT 7 U/L (15-37); Albumin 3.4 g/dL (3.4-5.0); Alkaline Phosphatase 50 U/L (45-117); BUN Blood Urea Nitrogen 11 mg/dL (7-18); Bicarbonate 23 mmol/L (21-32); Bilirubin Direct 0.1 mg/dL (0-0.2); Bilirubin Total 0.4 mg/dL (0.2-1.0); Glucose Level 192 mg/dL (74-106); Magnesium 1.7 mg/dL (1.8-2.4); NT PRO-BNP 575 pg/mL (<450); Potassium 3.6 mmol/L (3.5-5.1); Protein, Total 6.9 g/dL (6.4-8.2); Sodium Level 130 mmol/L (136-145); Troponin (Emerg Dept Use Only) < 0.02 ng/mL (0.0-0.045)
[2019-08-25 14:59] LABS: Blood Morphology Comment NOT SEEN (NOT SEEN); Platelet Estimate ADEQ; Platelets, Giant NOTED; Urine White Blood Cell Casts OK
--- NOTE | 2019-08-25 15:23 | EDPHYS ---
Physician Documentation [facility] Name: Jeannette Thomas Age: 84 yrs Sex: Female : 1935 Arrival Date: 08/25/2019 Time: 13:08 Bed 7 Private MD: TRUMAN Physician Angel Cooley HPI: 08/24 14:09 This 84 yrs old Female presents to ER via EMS with complaints of pm1 Nausea/Vomiting, Dizziness. 14:09 The patient presents with vertigo. Onset: The symptoms/episode began/occurred this pm1 morning, at 10:30. Context: occurred at home, just prior to the episode the patient experienced no apparent symptoms. Modifying factors: The symptoms are alleviated by Antivert, closing eyes, the symptoms are aggravated by movement of head, changing position. Associated signs and symptoms: Pertinent positives: nausea, vomiting, Pertinent negatives: abdominal pain, chest pain, numbness, shortness of breath, tingling. 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 Patient's baseline: Neuro: alert and fully oriented, Motor: no deficits, Ambulation: walks without assistance, Speech: normal, The patient has a previous history of vertigo, seen about 1 month ago with the same symptoms. Patient reports burning with urination. Historical: - Allergies: 13:29 Ciprofloxacin; em 13:29 Crestor; em 13:29 FLU VACCINE; em 13:29 Fosamax; em 13:29 Januvia; em 13:29 Minocycline; em 13:29 pneumonia vaccine; em 13:29 Sulfa (Sulfonamide Antibiotics); em 13:29 Victoza 2-Denny; em - Home Meds: 13:29 aspirin 81 mg Oral chew 1 tab once daily [Active]; calcium 1200mg/ Vit D 3 1000mcg em daily [Active]; estradol cream [Active]; folic acid 400 mcg Oral tab 1 tab once daily [Active]; glipizide 10 mg Oral tab 1 tab 2 times per day for Type 2 Diabetes Mellitus [Active]; hydrochlorothiazide 25 mg Oral tab 1 tab once daily [Active]; iron sulfate 325 mg daily [Active]; Lantus 100 unit/mL Sub-Q soln 18 unit daily for Type 2 Diabetes Mellitus [Active]; lisinopril 10 mg Oral tab 1 tab once daily for Hypertension [Active]; metformin 1,000 mg Oral tab 1 tab 2 times per day for Type 2 Diabetes Mellitus [Active]; methenamine hippurate 1 gram Oral tab 1 tab 2 times per day [Active]; metoprolol tartrate 50 mg Oral tab 1 tab 2 times per day for Hypertension [Active]; Nexium 40 mg Oral cpDR 1 cap once daily [Active]; simvastatin 5 mg Oral tab 1 tab once daily for Mixed Hyperlipidemia [Active]; - PMHx: 13:29 Anemia; Colitis; colonoscopy; Diabetes - IDDM; Diverticulitis; epidural steroid em injections; Gastric Reflux; hiatal hernia; Hyperlipidemia; Hypertension; irregular heart beat; PE; peptic ulcer; PUD; - PSHx: 13:29 Hysterectomy; cyctocyle and rectocyle repair; parathyroid surgery; endoscopy; em - Immunization history:: Adult Immunizations not up to date. - Social history:: Smoking status: Patient denies any tobacco usage or history of. ROS: 14:09 Constitutional: Negative for fever, chills, and weight loss, Eyes: Negative for injury, pm1 pain, redness, and discharge, ENT: Negative for injury, pain, and discharge, Neck: Negative for injury, pain, and swelling, Cardiovascular: Negative for chest pain, palpitations, and edema, Respiratory: Negative for shortness of breath, cough, wheezing, and pleuritic chest pain, Abdomen/GI: Negative for abdominal pain, nausea, vomiting, diarrhea, and constipation, Back: Negative for injury and pain, MS/Extremity: Negative for injury and deformity, Skin: Negative for injury, rash, and discoloration. 14:09 : Positive for burning with urination. 14:09 Neuro: Positive for dizziness, Negative for headache, numbness, weakness. Exam: 14:09 Constitutional: This is a well developed, well nourished patient who is awake, alert, pm1 and in no acute distress. Head/Face: Normocephalic, atraumatic. Chest/axilla: Normal chest wall appearance and motion. Nontender with no deformity. No lesions are appreciated. 14:09 Abdomen/GI: Soft, non-tender, with normal bowel sounds. No distension or tympany. No guarding or rebound. No evidence of tenderness throughout. Back: No spinal tenderness. No costovertebral tenderness. Full range of motion. Skin: Warm, dry with normal turgor. Normal color with no rashes, no lesions, and no evidence of cellulitis. MS/ Extremity: Pulses equal, no cyanosis. Neurovascular intact. Full, normal range of motion. 14:09 Cardiovascular: Exam negative for acute changes, Rate: normal, Rhythm: regular, Pulses: no pulse deficits are appreciated, Edema: is not appreciated. 14:09 Respiratory: Exam negative for acute changes, respiratory distress, shortness of breath. 14:09 Neuro: Exam negative for acute changes, Orientation: is normal, Mentation: is normal, Motor: moves all fours. Vital Signs: 13:23 BP 143 / 61; Pulse 81; Resp 18; Temp 97.9; Pulse Ox 100% on R/A; Weight 80.74 kg; em Height 5 ft. 4 in. (162.56 cm); Pain 0/10; 15:14 BP 133 / 67; Pulse 83; Resp 20; Temp 97.6(TE); Pulse Ox 100% on R/A; mh5 13:23 Body Mass Index 30.55 (80.74 kg, 162.56 cm) em MDM: 13:17 Patient medically screened. [facility] 15:21 Data reviewed: vital signs. Data interpreted: Pulse oximetry: on room air is 100 %. pm1 Interpretation: normal. Counseling: I had a detailed discussion with the patient and/or guardian regarding: the historical points, exam findings, and any diagnostic results supporting the discharge/admit diagnosis, lab results, radiology results, the need for outpatient follow up, to return to the emergency department if symptoms worsen or persist or if there are any questions or concerns that arise at home. 08/24 13:26 Order name: Basic Metabolic Panel; Complete Time: 15:08 pm1 08/24 13:26 Order name: CBC with Diff; Complete Time: 15:08 pm1 08/24 13:26 Order name: LFT's; Complete Time: 15:08 pm1 08/24 13:26 Order name: Magnesium; Complete Time: 15:08 pm1 08/24 13:26 Order name: NT PRO-BNP; Complete Time: 15:08 pm1 08/24 13:26 Order name: PT-INR; Complete Time: 14:41 pm1 08/24 13:26 Order name: Troponin (emerg Dept Use Only); Complete Time: 15:08 pm1 08/24 13:26 Order name: XRAY Chest (1 view); Complete Time: 14:36 pm1 08/24 13:26 Order name: CT Head Brain wo Cont; Complete Time: 14:36 pm1 08/24 14:08 Order name: Urine Microscopic Only; Complete Time: 14:36 pm1 08/24 14:11 Order name: Urine Dipstick--Ancillary (enter results); Complete Time: 14:36 eb 08/24 14:36 Order name: Urine Culture EDMS 08/24 14:37 Order name: CBC Smear Scan; Complete Time: 15:08 EDMS 08/24 14:53 Order name: Glucose, Ancillary Testing; Complete Time: 15:08 EDMS 08/24 13:26 Order name: EKG; Complete Time: 13:26 pm1 08/24 13:26 Order name: Cardiac monitoring; Complete Time: 14:42 pm1 08/24 13:26 Order name: EKG - Nurse/Tech; Complete Time: 14:42 pm1 08/24 13:26 Order name: IV Saline Lock; Complete Time: 14:27 pm1 08/24 13:26 Order name: Labs collected and sent; Complete Time: 14:27 pm1 08/24 13:26 Order name: O2 Per Protocol; Complete Time: 14:27 pm1 08/24 13:26 Order name: O2 Sat Monitoring; Complete Time: 14:27 pm1 08/24 14:08 Order name: Urine Dipstick-Ancillary (obtain specimen); Complete Time: 14:27 pm1 Administered Medications: 14:42 Drug: Rocephin 1 grams Route: IV; Rate: calculated rate; Site: left hand; jl7 14:45 Follow up: Response: No adverse reaction; IV Status: Completed infusion jl7 15:40 Drug: Valium 2 mg Route: PO; jl7 15:40 Follow up: Response: Medication administered at discharge. jl7 Disposition: 08/25/19 15:22 Discharged to Home. Impression: Urinary tract infection, site not specified. - Condition is Stable. - Discharge Instructions: Benign Positional Vertigo, Urinary Tract Infection, Adult. - Prescriptions for Zofran ODT 4 mg Oral tablet,disintegrating - place 1 tablet by TRANSLINGUAL route every 8 hours As needed; 12 tablet. Meclizine 25 mg Oral Tablet - take 1 tablet by ORAL route every 8 hours As needed; 30 tablet. Valium 2 mg Oral Tablet - take 1 tablet by ORAL route every 8 hours As needed; 20 tablet. Macrobid 100 mg Oral Capsule - take 1 capsule by ORAL route every 12 hours for 7 days; 14 capsule. - Medication Reconciliation Form, Thank You Letter, Antibiotic Education, Prescription Opioid Use form. - Follow up: Emergency Department; When: As needed; Reason: Worsening of condition. Follow up: Private Physician; When: 2 - 3 days; Reason: Recheck today's complaints, Continuance of care, Re-evaluation by your physician. - Problem is new. - Symptoms have improved. Addendum: 08/27/2019 20:17 Co-signature as Attending Physician, Angel Cooley MD I agree with the assessment and c paulino plan of care. Signatures: Dispatcher [employer] Angel Starr MD MD cha Munoz, Edgar, RN RN Dave Hinkle NP ROUTE AIDE pm1 Maciel Scherer RN RN jl7 Corrections: (The following items were deleted from the chart) 08/24 15:23 15:22 08/25/2019 15:22 Discharged to Home. Impression: Urinary tract infection, site pm1 not specified. Condition is Stable. Forms are Medication Reconciliation Form, Thank You Letter, Antibiotic Education, Prescription Opioid Use. pm1 15:52 15:23 08/25/2019 15:22 Discharged to Home. Impression: Urinary tract infection, site jl7 not specified. Condition is Stable. Forms are Medication Reconciliation Form, Thank You Letter, Antibiotic Education, Prescription Opioid Use. Follow up: Emergency Department; When: As needed; Reason: Worsening of condition. Follow up: Private Physician; When: 2 - 3 days; Reason: Recheck today's complaints, Continuance of care, Re-evaluation by your physician. Problem is new. Symptoms have improved. pm1
--- NOTE | 2019-08-25 15:23 | ER ---
Nurse's Notes [facility] Name: Jeannette Thomas Age: 84 yrs Sex: Female : 1935 Arrival Date: 08/25/2019 Time: 13:08 Bed 7 Private MD: Diagnosis: Urinary tract infection, site not specified Presentation: 08/24 13:23 Chief complaint: EMS states: called out for dizziness that started at 1030 this em morning, pt reports having similar episode in July, took meclizine and zofran prior to EMS arrival, en route EMS gave 10 mg Reglan and 4 mg Zofran, 20 G left hand, BGL 201, reports feeling slightly better after medication. Coronavirus screen: Proceed with normal triage. Ebola Screen: Patient negative for fever greater than or equal to 101.5 degrees Fahrenheit, and additional compatible Ebola Virus Disease symptoms Patient denies exposure to infectious person. Patient denies travel to an Ebola-affected area in the 21 days before illness onset. No symptoms or risks identified at this time. Initial Sepsis Screen: Does the patient meet any 2 criteria? No. Patient's initial sepsis screen is negative. Does the patient have a suspected source of infection? No. Patient's initial sepsis screen is negative. Risk Assessment: Do you want to hurt yourself or someone else? Patient reports no desire to harm self or others. Onset of symptoms was August 25, 2019. 13:23 Method Of Arrival: EMS: [facility] em 13:23 Acuity: OSVALDO 3 em Historical: - Allergies: 13:29 Ciprofloxacin; em 13:29 Crestor; em 13:29 FLU VACCINE; em 13:29 Fosamax; em 13:29 Januvia; em 13:29 Minocycline; em 13:29 pneumonia vaccine; em 13:29 Sulfa (Sulfonamide Antibiotics); em 13:29 Victoza 2-Denny; em - Home Meds: 13:29 aspirin 81 mg Oral chew 1 tab once daily [Active]; calcium 1200mg/ Vit D 3 1000mcg em daily [Active]; estradol cream [Active]; folic acid 400 mcg Oral tab 1 tab once daily [Active]; glipizide 10 mg Oral tab 1 tab 2 times per day for Type 2 Diabetes Mellitus [Active]; hydrochlorothiazide 25 mg Oral tab 1 tab once daily [Active]; iron sulfate 325 mg daily [Active]; Lantus 100 unit/mL Sub-Q soln 18 unit daily for Type 2 Diabetes Mellitus [Active]; lisinopril 10 mg Oral tab 1 tab once daily for Hypertension [Active]; metformin 1,000 mg Oral tab 1 tab 2 times per day for Type 2 Diabetes Mellitus [Active]; methenamine hippurate 1 gram Oral tab 1 tab 2 times per day [Active]; metoprolol tartrate 50 mg Oral tab 1 tab 2 times per day for Hypertension [Active]; Nexium 40 mg Oral cpDR 1 cap once daily [Active]; simvastatin 5 mg Oral tab 1 tab once daily for Mixed Hyperlipidemia [Active]; - PMHx: 13:29 Anemia; Colitis; colonoscopy; Diabetes - IDDM; Diverticulitis; epidural steroid em injections; Gastric Reflux; hiatal hernia; Hyperlipidemia; Hypertension; irregular heart beat; PE; peptic ulcer; PUD; - PSHx: 13:29 Hysterectomy; cyctocyle and rectocyle repair; parathyroid surgery; endoscopy; em - Immunization history:: Adult Immunizations not up to date. - Social history:: Smoking status: Patient denies any tobacco usage or history of. Screenin:30 Abuse screen: Denies threats or abuse. Denies injuries from another. Nutritional jl7 screening: No deficits noted. Tuberculosis screening: No symptoms or risk factors identified. Fall Risk IV access (20 points). Assessment: 13:30 General: Appears in no apparent distress. uncomfortable, Behavior is calm, cooperative, jl7 appropriate for age. Pain: Denies pain. Neuro: Level of Consciousness is awake, alert, obeys commands. Cardiovascular: Patient's skin is warm and dry. Respiratory: Airway is patent Respiratory effort is even, unlabored, Respiratory pattern is regular, symmetrical. GI: Abdomen is non-distended, Reports nausea. : Reports burning with urination. Derm: Skin is pink, warm \T\ dry. Musculoskeletal: No signs and/or symptoms reported regarding the musculoskeletal system. 14:10 Reassessment: Assisted pt to bedside commode. jl7 14:30 Reassessment: Patient appears in no apparent distress at this time. No changes from jl7 previously documented assessment. Patient and/or family updated on plan of care and expected duration. Pain level reassessed. Patient is alert, oriented x 3, equal unlabored respirations, skin warm/dry/pink. 15:30 Reassessment: Patient appears in no apparent distress at this time. Patient and/or jl7 family updated on plan of care and expected duration. Pain level reassessed. Patient is alert, oriented x 3, equal unlabored respirations, skin warm/dry/pink. Vital Signs: 13:23 BP 143 / 61; Pulse 81; Resp 18; Temp 97.9; Pulse Ox 100% on R/A; Weight 80.74 kg; em Height 5 ft. 4 in. (162.56 cm); Pain 0/10; 15:14 BP 133 / 67; Pulse 83; Resp 20; Temp 97.6(TE); Pulse Ox 100% on R/A; mh5 13:23 Body Mass Index 30.55 (80.74 kg, 162.56 cm) em ED Course: 13:08 Patient arrived in ED. am2 13:10 Dave Cervantes, DANIA is PHCP. pm1 13:10 Angel Cooley MD is Attending Physician. pm1 13:12 Dane De La Cruz, RN is Primary Nurse. em 13:26 Triage completed. em 13:29 Arm band placed on. em 13:58 XRAY Chest (1 view) In Process Unspecified. EDMS 14:00 Initial lab(s) drawn, by me, sent to lab. Urine collected: clean catch specimen, cloudy.jl7 14:09 CT Head Brain wo Cont In Process Unspecified. EDMS 14:58 Patient has correct armband on for positive identification. Placed in gown. Bed in low mh5 position. Call light in reach. Side rails up X2. Warm blanket given. Pillow given. alarm security or surveillance monitor on. Pulse ox on. NIBP on. 14:59 EKG done, by ED staff, reviewed by Angel Cooley MD. 5 15:42 No provider procedures requiring assistance completed. IV discontinued, intact, jl7 bleeding controlled, No redness/swelling at site. Pressure dressing applied. 15:51 Maciel Scherer, RN is Primary Nurse. jl7 Administered Medications: 14:42 Drug: Rocephin 1 grams Route: IV; Rate: calculated rate; Site: left hand; [facility] 14:45 Follow up: Response: No adverse reaction; IV Status: Completed infusion 7 15:40 Drug: Valium 2 mg Route: PO; jl7 15:40 Follow up: Response: Medication administered at discharge. jl7 Outcome: 15:22 Discharge ordered by . pm1 15:49 Discharged to home via wheelchair, with family. jl7 15:49 Condition: stable 15:49 Discharge instructions given to patient, Instructed on discharge instructions, follow up and referral plans. medication usage, Demonstrated understanding of instructions, follow-up care, medications, Prescriptions given X 4. 15:52 Patient left the ED. jl7 Addendum: 08/28/2019 14:16 Addendum: Culture Results: Positive urine culture. No further action required. Bacteria i w sensitive to prescribed antibiotic. Signatures: Dispatcher [employer] EDDane Montano RN RN Vidhya Wilcox RN RN iw Dave Cervantes NP CASE OPERATOR pm1 Toma Castillo 5 Maciel Scherer RN RN jl7 Herlinda Champion am2 Corrections: (The following items were deleted from the chart) 08/24 15:50 15:49 Discharge instructions given to patient, Instructed on discharge instructions, jl7 follow up and referral plans. medication usage, Demonstrated understanding of instructions, follow-up care, medications, Prescriptions given X 3, jl7
[2019-08-25] MEDS ORDERED: DIAZEPAM 2 MG TABLET ONE (15:37)
[2019-08-25 15:57] VITALS: O2SAT 100
[2019-08-25 15:58] VITALS: BP 133/67; TEMP 97.6
--- NOTE | 2019-08-26 08:40 | EKG ---
Test Date: 2019-08-25 Test Time: 14:50:24 Cement Mason: KENNEDY MEASUREMENT RESULTS: Intervals: Rate: 73 NC: 150 QRSD: 94 QT: 434 QTc: 478 [place]: P: 49 NC: 150 QRS: 9 T: 45 INTERPRETIVE STATEMENTS: Normal sinus rhythm Nonspecific ST abnormality Abnormal ECG Compared to ECG 07/20/2019 04:19:16 ST (T wave) deviation now present Myocardial infarct finding no longer present Electronically Signed On 08-26-19 08:39:03 CDT by Donnie Vale
== END 2019-08-25 15:52 | disposition home or self-care (01) ==
LOC: ER 13:05
DX: N39.0 Urinary tract infection, site not specified (principal); I10 Essential (primary) hypertension; E78.5 Hyperlipidemia, unspecified; E11.9 Type 2 diabetes mellitus without complications; Z79.4 Long term (current) use of insulin; Z79.82 Long term (current) use of aspirin; Z88.1 Allergy status to other antibiotic agents; Z88.2 Allergy status to sulfonamides; Z88.7 Allergy status to serum and vaccine; Z88.8 Allergy status to other drugs, medicaments and biological substances
CPT/HCPCS: 93005; 87088; 85025; 87086; 80048; 36415; 83735; 85610; 82947; 80076; 87077; 87186; 84484; 83880; 70450; 71045; 96374; 99284; J0696; 81003; 81015

== ENCOUNTER 2020-05-01 20:17 | Emergency (ER) | payer OTHER ==
--- OUTSIDE RECORDS SUMMARY | 2020-05-01 20:20 | XMS REPORT | Continuity of Care Document ---
:1935 Author Organization [facility] t Address [address] [place] [address] Care Team Providers Name Role Phone Unavailable Unavailable Unavailable Payers Payer Name Policy Type Policy Number Effective Date Expiration Date S ource Problems This patient has no known problems. Allergies, Adverse Reactions, Alerts Allergy Allergy Status Severity Reaction(s) Onset Inactive Treating Comm ents Source Name Type Date Date Clinician atorvast DA Active [facility] atin 6 Clear calcium 00:00: Stephen 00 [facility] rosuvast DA Active [facility] atin 6- Clear calcium 00:00: Stephen 00 [facility] Sulfa DA Active U [facility] (Sulfona 10-14 Clear mide 00:00: Stephen Antibiot 00 [facility] cefaclor DA Active [facility] - Clear 00:00: Stephen 00 [facility] alendron DA Active U [facility] ate 10-14 Clear sodium 00:00: Stephen [address] [place] [address] Medications This patient has no known medications. Procedures This patient has no known procedures. Encounters Start End Encounter Admission Attending Care Care Encounter Source Date/Time Date/Time Type Type Clinicians Facility Department ID 2019-01-11 2019-01-11 [place] [facility] [id number] [place] 09:10:00 09:10:00 Results This patient has no known results.
[2020-05-02] MEDS ORDERED: DIAZEPAM 2 MG TABLET ONE (00:01)
[2020-05-02] MEDS ORDERED: MORPHINE 2 MG/ML SYR ONE (00:01)
[2020-05-02] MEDS ORDERED: NA CHLORIDE 0.9% 1,000 ML ONE (00:02)
[2020-05-02] MEDS ORDERED: dexAMETHasone 10 MG/ML VIAL ONE (00:02)
[2020-05-02] MEDS ORDERED: ONDANSETRON 4 MG/2 ML VIAL ONE (00:02)
[2020-05-02] MEDS ORDERED: KETOROLAC 30 MG/ML INJ ONE (00:02)
[2020-05-02 00:32] LABS: Albumin 3.7 g/dL (3.4-5.0); Bilirubin Total 0.5 mg/dL (0.2-1.0); Potassium 3.8 mmol/L (3.5-5.1); Protein, Total 6.7 g/dL (6.4-8.2)
[2020-05-02 00:35] LABS: Absolute Lymphocytes (CBC) 1.4 K/uL (0.7-4.9); Basophils % 0.7 % (0-1.3); Hematocrit 37.6 % (36.0-45.0); MPV 12.2 fL (7.6-11.3); RBC Red Blood Cell Count 3.88 M/uL (3.86-4.86)
[2020-05-02 01:11] LABS: Urine Blood NEGATIVE (NEG); Urine Glucose NEGATIVE (NEG); Urine Protein NEGATIVE (NEG)
--- NOTE | 2020-05-02 01:12 | ER ---
Nurse's Notes [facility] Name: Jeannette Thomas Age: 85 yrs Sex: Female : 1935 Arrival Date: 05/01/2020 Time: 20:18 Bed 4 Private MD: Diagnosis: Low back pain;Sciatica, right side;Spondylolysis, lumbar region Presentation: 05/01 20:27 Chief complaint: Patient states: R hip pain radiating tot the R low back pain, R leg to ca1 R knee since Tuesday. Had been taking Meloxicam, no relief. Was given a steroid shot the day before yesterday, no relief. Toradol shot yesterday, no relief. I had X-rays done on my R hip today no results yet. Recent fall was 6 weeks ago and did not have any pain until this Tuesday. Coronavirus screen: Client denies travel out of the [place] in the last 14 days. At this time, the client does not indicate any symptoms associated with coronavirus-19. Ebola Screen: Patient negative for fever greater than or equal to 101.5 degrees Fahrenheit, and additional compatible Ebola Virus Disease symptoms Patient denies exposure to infectious person. Patient denies travel to an Ebola-affected area in the 21 days before illness onset. No symptoms or risks identified at this time. Initial Sepsis Screen: Does the patient meet any 2 criteria? No. Patient's initial sepsis screen is negative. Does the patient have a suspected source of infection? No. Patient's initial sepsis screen is negative. Risk Assessment: Do you want to hurt yourself or someone else? Patient reports no desire to harm self or others. Onset of symptoms was May 01, 2020. 20:27 Method Of Arrival: Wheelchair ca1 20:27 Acuity: OSVALDO 3 ca1 Historical: - Allergies: 20:33 Ciprofloxacin; ca1 20:33 Crestor; ca1 20:33 FLU VACCINE; ca1 20:33 Fosamax; ca1 20:33 Januvia; ca1 20:33 Minocycline; ca1 20:33 pneumonia vaccine; ca1 20:33 Sulfa (Sulfonamide Antibiotics); ca1 20:33 Victoza 2-Denny; ca1 - PMHx: 20:33 Anemia; Colitis; colonoscopy; Diabetes - IDDM; Diverticulitis; epidural steroid ca1 injections; Gastric Reflux; hiatal hernia; Hyperlipidemia; Hypertension; irregular heart beat; PE; peptic ulcer; PUD; - PSHx: 20:33 Hysterectomy; cyctocyle and rectocyle repair; parathyroid surgery; endoscopy; ca1 - Immunization history:: Pneumococcal vaccine is not up to date, Flu vaccine is not up to date. - Social history:: Smoking status: Patient denies any tobacco usage or history of. - Family history:: not pertinent. Screenin/15 00:30 Fall Risk IV access (20 points). ea 01:19 Abuse screen: Denies threats or abuse. Nutritional screening: No deficits noted. ea Tuberculosis screening: No symptoms or risk factors identified. Assessment: 00:44 Reassessment: Patient and/or family updated on plan of care and expected duration. Pain ea level reassessed. Patient is alert, oriented x 3, equal unlabored respirations, skin warm/dry/pink. 01:21 Reassessment: Patient and/or family updated on plan of care and expected duration. Pain ea level reassessed. Patient is alert, oriented x 3, equal unlabored respirations, skin warm/dry/pink. Discharge instruction given to patient, verbalized the understanding of instruction. Pt left ED ambulatory tolerating well. Vital Signs: 05/01 20:27 BP 150 / 95; Pulse 81; Resp 16 S; Temp 97.1(TE); Pulse Ox 99% on R/A; Weight 81.65 kg ca1 (R); Height 5 ft. 4 in. (162.56 cm) (R); Pain 8/10; 05/02 00:50 BP 160 / 63; Pulse 68; Resp 18; Pulse Ox 98% ; ea 05/01 20:27 Body Mass Index 30.90 (81.65 kg, 162.56 cm) ca1 ED Course: 05/01 20:18 Patient arrived in ED. am2 20:31 Triage completed. ca1 20:33 Arm band placed on right wrist. ca1 23:23 Angel Cooley MD is Attending Physician. heaven 23:43 Justin Alex RN is Primary Nurse. rv 23:44 Initial lab(s) drawn, by me, sent to lab. Inserted saline lock: 20 gauge in right rv antecubital area, using aseptic technique. Blood collected. 05/02 00:18 CT Lumbar Spine Wo Con In Process Unspecified. EDMS 00:30 Patient has correct armband on for positive identification. Bed in low position. Call ea light in reach. Side rails up X2. 01:20 No provider procedures requiring assistance completed. IV discontinued, intact, ea bleeding controlled, No redness/swelling at site. Pressure dressing applied. Administered Medications: 05/01 23:57 Drug: Valium 2 mg Route: PO; rv 05/02 00:51 Follow up: Response: No adverse reaction ea 05/01 23:58 Drug: TORadol 30 mg Route: IVP; Site: right antecubital; rv 05/02 00:51 Follow up: Response: No adverse reaction ea 05/01 23:58 Drug: morphine 2 mg Route: IVP; Site: right antecubital; rv 05/02 00:30 Follow up: Response: No adverse reaction ea 05/01 23:58 Drug: Decadron - Dexamethasone 6 mg Route: IVP; Site: right antecubital; rv 05/02 00:51 Follow up: Response: No adverse reaction ea 05/01 23:58 Drug: Zofran (Ondansetron) 4 mg Route: IVP; Site: right antecubital; rv 05/02 00:51 Follow up: Response: No adverse reaction ea 00:00 Drug: NS 0.9% 1000 ml Route: IV; Rate: 125 ml/hr; Site: right antecubital; ea 00:04 Drug: NS 0.9% 500 ml Route: IV; Rate: bolus; Site: right antecubital; rv 01:18 Drug: [place]ade (7.5 mg-325 mg) 1 tabs {Note: rass 0.} Route: PO; ea 01:19 Follow up: Response: Medication administered at discharge. ea Outcome: 01:11 Discharge ordered by . heaven 01:20 Discharged to home ambulatory. ea 01:20 Condition: stable 01:20 Discharge instructions given to patient, Instructed on discharge instructions, follow up and referral plans. medication usage, Demonstrated understanding of instructions, follow-up care, medications, Prescriptions given X 4. 01:21 Patient left the ED. ea Signatures: Dispatcher [employer] EDMS Angel Cooley MD MD cha Moreno, Amanda am2 Anastasia Rosales RN RN ea Vicente, Ronaldo RN RN rv Palak aCrreno RN RN ca1 Corrections: (The following items were deleted from the chart) 05/01 20:33 20:27 Acuity: OSVALDO 4 ca1 ca1 05/02 01:18 01:18 Slade (7.5 mg-325 mg) 1 tabs PO ea ea
--- NOTE | 2020-05-02 01:13 | EDPHYS ---
Physician Documentation [facility] Name: Jeannette Thomas Age: 85 yrs Sex: Female : 1935 Arrival Date: 05/01/2020 Time: 20:18 Bed 4 Private MD: TRUMAN Physician Angel Cooley HPI: 05/02 00:54 This 85 yrs old Female presents to ER via Wheelchair with complaints of Low heaven Back Pain, Leg Pain. 00:54 The patient presents with pain that is acute, with no known mechanism of injury. The heaven symptoms are located in the low back, right low back. The pain does not radiate. The problem was sustained from unknown cause. Onset: The symptoms/episode began/occurred yesterday. Modifying factors: The patient symptoms are alleviated by nothing, remaining still, rest, the patient symptoms are aggravated by any movement. Associated signs and symptoms: The patient has no apparent associated signs or symptoms, Pertinent positives:. Severity of symptoms: At their worst the symptoms were moderate, in the emergency department the symptoms are unchanged. The patient has experienced similar episodes in the past, several times. Historical: - Allergies: 05/01 20:33 Ciprofloxacin; ca1 20:33 Crestor; ca1 20:33 FLU VACCINE; ca1 20:33 Fosamax; ca1 20:33 Januvia; ca1 20:33 Minocycline; ca1 20:33 pneumonia vaccine; ca1 20:33 Sulfa (Sulfonamide Antibiotics); ca1 20:33 Victoza 2-Denny; ca1 - PMHx: 20:33 Anemia; Colitis; colonoscopy; Diabetes - IDDM; Diverticulitis; epidural steroid ca1 injections; Gastric Reflux; hiatal hernia; Hyperlipidemia; Hypertension; irregular heart beat; PE; peptic ulcer; PUD; - PSHx: 20:33 Hysterectomy; cyctocyle and rectocyle repair; parathyroid surgery; endoscopy; ca1 - Immunization history:: Pneumococcal vaccine is not up to date, Flu vaccine is not up to date. - Social history:: Smoking status: Patient denies any tobacco usage or history of. - Family history:: not pertinent. ROS: 05/02 00:54 Constitutional: Negative for fever, chills, and weight loss, Eyes: Negative for injury, heaven pain, redness, and discharge, ENT: Negative for injury, pain, and discharge, Neck: Negative for injury, pain, and swelling, Cardiovascular: Negative for chest pain, palpitations, and edema, Respiratory: Negative for shortness of breath, cough, wheezing, and pleuritic chest pain, Abdomen/GI: Negative for abdominal pain, nausea, vomiting, diarrhea, and constipation, : Negative for injury, bleeding, discharge, and swelling, MS/Extremity: Negative for injury and deformity, Skin: Negative for injury, rash, and discoloration, Neuro: Negative for headache, weakness, numbness, tingling, and seizure, Psych: Negative for depression, anxiety, suicide ideation, homicidal ideation, and hallucinations, Allergy/Immunology: Negative for hives, rash, and allergies, Endocrine: Negative for neck swelling, polydipsia, polyuria, polyphagia, and marked weight changes, Hematologic/Lymphatic: Negative for swollen nodes, abnormal bleeding, and unusual bruising. Abdomen/GI: Negative for abdominal pain, abdominal distension. Back: Positive for decreased range of motion, pain with movement, radiated pain, of the right low back. Exam: 00:54 Constitutional: This is a well developed, well nourished patient who is awake, alert, heaven and in no acute distress. Head/Face: Normocephalic, atraumatic. Eyes: Pupils equal round and reactive to light, extra-ocular motions intact. Lids and lashes normal. Conjunctiva and sclera are non-icteric and not injected. Cornea within normal limits. Periorbital areas with no swelling, redness, or edema. ENT: Nares patent. No nasal discharge, no septal abnormalities noted. Tympanic membranes are normal and external auditory canals are clear. Oropharynx with no redness, swelling, or masses, exudates, or evidence of obstruction, uvula midline. Mucous membranes moist. Neck: Trachea midline, no thyromegaly or masses palpated, and no cervical lymphadenopathy. Supple, full range of motion without nuchal rigidity, or vertebral point tenderness. No Meningismus. Chest/axilla: Normal chest wall appearance and motion. Nontender with no deformity. No lesions are appreciated. Cardiovascular: Regular rate and rhythm with a normal S1 and S2. No gallops, murmurs, or rubs. Normal PMI, no JVD. No pulse deficits. Respiratory: Lungs have equal breath sounds bilaterally, clear to auscultation and percussion. No rales, rhonchi or wheezes noted. No increased work of breathing, no retractions or nasal flaring. Abdomen/GI: Soft, non-tender, with normal bowel sounds. No distension or tympany. No guarding or rebound. No evidence of tenderness throughout. Female : Normal external genitalia. Skin: Warm, dry with normal turgor. Normal color with no rashes, no lesions, and no evidence of cellulitis. MS/ Extremity: Pulses equal, no cyanosis. Neurovascular intact. Full, normal range of motion. Neuro: Awake and alert, GCS 15, oriented to person, place, time, and situation. Cranial nerves II-XII grossly intact. Motor strength 5/5 in all extremities. Sensory grossly intact. Cerebellar exam normal. Normal gait. Psych: Awake, alert, with orientation to person, place and time. Behavior, mood, and affect are within normal limits. 00:54 Back: ROM is painful, with flexion, with extension, normal spinal alignment noted, CVA tenderness, is absent, vertebral tenderness, is not appreciated, muscle spasm, is appreciated in the left low back, left mid back, right mid back and right low back. Vital Signs: 05/01 20:27 BP 150 / 95; Pulse 81; Resp 16 S; Temp 97.1(TE); Pulse Ox 99% on R/A; Weight 81.65 kg ca1 (R); Height 5 ft. 4 in. (162.56 cm) (R); Pain 8/10; 05/02 00:50 BP 160 / 63; Pulse 68; Resp 18; Pulse Ox 98% ; ea 05/01 20:27 Body Mass Index 30.90 (81.65 kg, 162.56 cm) ca1 MDM: 05/01 23:23 Patient medically screened. [facility] 05/02 00:54 Differential diagnosis: arthritis, strain, sciatica, Herniated disc UTI. Data reviewed: [facility] vital signs, nurses notes, lab test result(s), radiologic studies, CT scan. Data interpreted: gambling monitor: rate is 68 beats/min, rhythm is regular, Pulse oximetry: on room air is 98 %. Counseling: I had a detailed discussion with the patient and/or guardian regarding: the historical points, exam findings, and any diagnostic results supporting the discharge/admit diagnosis, lab results, radiology results, the need for outpatient follow up, for definitive care, an environmental project manager. 05/01 23:40 Order name: CBC with Diff; Complete Time: 00:53 [facility] 05/01 23:40 Order name: Comprehensive Metabolic Panel; Complete Time: 00:53 [facility] 05/01 23:40 Order name: CT Lumbar Spine Wo Con [facility] 05/02 00:52 Order name: Urine Dipstick--Ancillary (enter results) tt3 05/01 23:40 Order name: Urine Dipstick-Ancillary (obtain specimen); Complete Time: 00:52 [facility] Administered Medications: 05/01 23:57 Drug: Valium 2 mg Route: PO; rv 05/02 00:51 Follow up: Response: No adverse reaction 05/01 23:58 Drug: TORadol 30 mg Route: IVP; Site: right antecubital; rv 05/02 00:51 Follow up: Response: No adverse reaction 05/01 23:58 Drug: morphine 2 mg Route: IVP; Site: right antecubital; rv 05/02 00:30 Follow up: Response: No adverse reaction 05/01 23:58 Drug: Decadron - Dexamethasone 6 mg Route: IVP; Site: right antecubital; rv 05/02 00:51 Follow up: Response: No adverse reaction 05/01 23:58 Drug: Zofran (Ondansetron) 4 mg Route: IVP; Site: right antecubital; rv 05/02 00:51 Follow up: Response: No adverse reaction 00:00 Drug: NS 0.9% 1000 ml Route: IV; Rate: 125 ml/hr; Site: right antecubital; ea 00:04 Drug: NS 0.9% 500 ml Route: IV; Rate: bolus; Site: right antecubital; rv 01:18 Drug: [place] (7.5 mg-325 mg) 1 tabs {Note: rass 0.} Route: PO; ea 01:19 Follow up: Response: Medication administered at discharge. ea Disposition: 05/02/20 01:11 Discharged to Home. Impression: Low back pain, Sciatica, right side, Spondylolysis, lumbar region. - Condition is Stable. - Discharge Instructions: Back Pain, Adult, Musculoskeletal Pain, Sciatica, Back Pain, Adult, [id number], Sciatica, [id number], Type 1 Diabetes Mellitus, Self Care, Adult, Type 1 Diabetes Mellitus, Self Care, Adult, [id number]. - Prescriptions for Ibuprofen 600 mg Oral Tablet - take 1 tablet by ORAL route every 8 hours As needed take with food; 21 tablet. Tylenol- Codeine #3 300-30 mg Oral Tablet - take 2 tablet by ORAL route every 6 hours As needed; 30 tablet. Valium 2 mg Oral Tablet - take 1 tablet by ORAL route every 8 hours As needed; 15 tablet. Medrol (Denny) 4 mg Oral Tablets, Dose Pack - take 1 tablet by ORAL route as directed - follow package instructions; 1 packet. - Medication Reconciliation Form, Thank You Letter, Antibiotic Education, Prescription Opioid Use form. - Follow up: Private Physician; When: 2 - 3 days; Reason: Recheck today's complaints, Continuance of care, Re-evaluation by your physician. - Problem is new. - Symptoms have improved. Signatures: Dispatcher [employer] EDMS Angel Cooley MD MD cha Antunez, Elena, RN RN ea Vicente, Ronaldo, RN RN rv Acob, Cheryl, RN RN ca1 Corrections: (The following items were deleted from the chart) 01: 01:11 05/02/2020 01:11 Discharged to Home. Impression: Low back pain; Sciatica, right ea side; Spondylolysis, lumbar region. Condition is Stable. Discharge Instructions: Back Pain, Adult, Musculoskeletal Pain, Sciatica, Back Pain, Adult, Klba-[id number]-[id number], Sciatica, Hefs-wi-Zrac, Type 1 Diabetes Mellitus, Self Care, Adult, Type 1 Diabetes Mellitus, Self Care, Adult, Xejv-[id number]-[id number]. Prescriptions for Ibuprofen 600 mg Oral Tablet - take 1 tablet by ORAL route every 8 hours As needed take with food; 21 tablet, Tylenol-Codeine #3 300-30 mg Oral Tablet - take 2 tablet by ORAL route every 6 hours As needed; 30 tablet, Valium 2 mg Oral Tablet - take 1 tablet by ORAL route every 8 hours As needed; 15 tablet, Medrol (Denny) 4 mg Oral Tablets, Dose Pack - take 1 tablet by ORAL route as directed - follow package instructions; 1 packet. and Forms are Medication Reconciliation Form, Thank You Letter, Antibiotic Education, Prescription Opioid Use. Follow up: Private Physician; When: 2 - 3 days; Reason: Recheck today's complaints, Continuance of care, Re-evaluation by your physician. Problem is new. Symptoms have improved. heaven
[2020-05-02 01:27] VITALS: TEMP 97.1
[2020-05-02 01:28] VITALS: BP 160/63; O2SAT 98
[2020-05-02] MEDS ORDERED: HYDROCODONE/APAP 7.5/325 MG TAB ONE (01:28)
[2020-05-02] MEDS ORDERED: DIAZEPAM 5 MG TABLET ONE (01:57)
--- NOTE | 2020-05-02 18:09 | RAD REPORT ---
EXAM DESCRIPTION: CTSpine Lumbar Wo Con05/02/2020 7:11 am CLINICAL HISTORY: The patient is 85 years old and is Female; Pain;Radiculopathy TECHNIQUE: Axial computed tomography images of the lumbar spine without intravenous contrast. Sagi ttal and coronal reformatted images were created and reviewed. This CT exam was performed using one or more of the following dose reduction techniques: automated exposure control, adjustment of the mA and/or kV according to patient size, and/or use of iterative reconstruction technique. COMPARISON: No relevant prior studies available. FINDINGS: VERTEBRAE: The vertebral body heights and alignment are maintained. There is no acute fracture. DISCS/SPINAL CANAL/NEURAL FORAMINA: Mild facet arthropathy of the lower lumbar spine is present. There is no significant canal stenosis. Minimal disc bulges from L3 through S1 are present. Minimal b ilateral neural foraminal narrowing from L3 through S1 is noted, most prominent at L4-L5. SOFT TISSUES: The soft tissues are normal. VASCULATURE: Atherosclerosis of the vasculature is present. IMPRESSION: Minimal spondylosis of the lumbar spine without acute findings. Electronically signed by: Laura Jarvis MD 05/02/2020 12:21 AM POINTER HELPER Due to temporary technical issues with the PACS/Fluency reporting system, reports are being signed by the in house radiologists without review as a courtesy to insure prompt reporting. The interpreting radiologist is fully responsible for the content of the report.
== END 2020-05-02 01:21 | disposition home or self-care (01) ==
LOC: ER 20:17
DX: M54.31 Sciatica, right side (principal); M43.06 Spondylolysis, lumbar region; I10 Essential (primary) hypertension; Z88.1 Allergy status to other antibiotic agents; Z88.2 Allergy status to sulfonamides; Z88.7 Allergy status to serum and vaccine; Z88.8 Allergy status to other drugs, medicaments and biological substances
CPT/HCPCS: 36415; 72131; 80053; 81003; 85025; 96374; 96375; 99284

== ENCOUNTER 2021-08-21 17:15 | Observation (INO) | payer OTHER ==
--- OUTSIDE RECORDS SUMMARY | 2021-08-21 17:18 | XMS REPORT | Continuity of Care Document ---
:1935 Author Organization [facility] t Address [address] [place] [address] Care Team Providers Name Role Phone Yamilender Attending Clinician Unavailable Payers Payer Name Policy Type Policy Number Effective Date Expiration Date S ource Problems This patient has no known problems. Allergies, Adverse Reactions, Alerts Allergy Allergy Status Severity Reaction(s) Onset Inactive Treating Comm ents Source Name Type Date Date Clinician rosuvast DA Active [facility] atin 6- Clear calcium 00:00: Stephen 00 [facility] Sulfa DA Active U [facility] (Sulfona 10-14 Clear mide 00:00: Stephen Antibiot 00 [facility] cefaclor DA Active [facility] 10-14 Clear 00:00: Stephen 00 [facility] alendron DA Active [facility] ate - Clear sodium 00:00: Stephen [address] [place] [address] atorvast DA Active U [facility] atin - Clear calcium 00:00: [address] Medications This patient has no known medications. Procedures This patient has no known procedures. Encounters Start End Encounter Admission Attending Care Care Encounter Source Date/Time Date/Time Type Type Clinicians Facility Department ID 2021-05-13 Outpatient ZAID Patel [facility] [id number] NPI:[id number] Julisa Reid [id number] 2021-05-13 Outpatient ZAID Patel [facility] [id number] NPI:[id number] Julisa Hammond9 [id number] 2021-05-13 Outpatient ZAID Patel [facility] [id number] NPI:[id number] Julisa 0408 [id number] 2019-01-11 2019-01-11 Outpatient [facility] [id number] [facility] 09:10:00 09:10:00 Results This patient has no known results.
--- NOTE | 2021-08-21 17:50 | RAD REPORT ---
EXAM DESCRIPTION: CT - Ct Stroke Brain Wo Cont - 08/21/2021 5:40 pm CLINICAL HISTORY: tia COMPARISON: 2019 TECHNIQUE: Computed axial tomography of the head was obtained. All CT scans are performed using dose optimization technique as appropriate and may include automated exposure control or mA/KV adjustment according to patient size. FINDINGS: Some images are degraded by motion artifact. An intracranial bleed is not seen . The ventricles are normal in caliber. No extra-axial fluid collection is noted. Mild low-density within periventricular, deep and subcortical white matter likely ischemic changes se condary to small vessel disease Fluid within the sinuses/ mastoids is not seen. IMPRESSION: No gross acute intracranial abnormality seen. If patient's symptoms persist MRI of the brain would be recommended. Dr Chávez of the emergency room notified 5:45 p.m. August 21, 2021
--- NOTE | 2021-08-21 17:58 | RAD REPORT ---
EXAM DESCRIPTION: Waldemar Single View08/21/2021 5:41 pm CLINICAL HISTORY: tia COMPARISON: 2019 FINDINGS: The lungs appear clear of acute infiltrate. The heart is borderline enlarged IMPRESSION: No acute abnormalities displayed
[2021-08-21 18:21] LABS: Protime INR 1.04
--- NOTE | 2021-08-21 18:25 | EDPHYS ---
Physician Documentation [facility] Name: Jeannette Thomas Age: 86 yrs Sex: Female : 1935 Arrival Date: 08/21/2021 Time: 17:16 Bed 3 Private MD: ED Physician Nahomy Chávez HPI: 08/21 17:28 This 86 yrs old Female presents to ER via Unassigned with complaints of S/S of Possible sp3 Stroke. 17:28 86-year-old female with a history of CAD presents to the ED with chief complaint of sp3 slurred speech and garbled speech that started approximately 90 minutes ago at 1400 hrs. after which they activated EMS who arrived at 1425 who then transferred patient here. During that time her symptoms have fully resolved and she is speaking normally again. She denies any headache, irregular heartbeat, chest pain, shortness of breath, nausea, vomiting, diarrhea, back pain, numbness or tingling, altered gait, altered mental status, confusion, or any other symptoms of supportive ROS at this time.. Historical: - Allergies: 17:30 Ciprofloxacin; bp 17:30 Crestor; bp 17:30 FLU VACCINE; bp 17:30 Fosamax; bp 17:30 Januvia; bp 17:30 Minocycline; bp 17:30 pneumonia vaccine; bp 17:30 Sulfa (Sulfonamide Antibiotics); bp 17:30 Victoza 2-Denny; bp - Home Meds: 17:30 aspirin 81 mg Oral chew 1 tab once daily [Active]; calcium 1200mg/ Vit D 3 1000mcg bp daily [Active]; estradol cream [Active]; folic acid 400 mcg Oral tab 1 tab once daily [Active]; glipizide 10 mg Oral tab 1 tab 2 times per day for Type 2 Diabetes Mellitus [Active]; hydrochlorothiazide 25 mg Oral tab 1 tab once daily [Active]; iron sulfate 325 mg daily [Active]; Lantus 100 unit/mL Sub-Q soln 18 unit daily for Type 2 Diabetes Mellitus [Active]; lisinopril 10 mg Oral tab 1 tab once daily for Hypertension [Active]; metformin 1,000 mg Oral tab 1 tab 2 times per day for Type 2 Diabetes Mellitus [Active]; methenamine hippurate 1 gram Oral tab 1 tab 2 times per day [Active]; metoprolol tartrate 50 mg Oral tab 1 tab 2 times per day for Hypertension [Active]; Nexium 40 mg Oral cpDR 1 cap once daily [Active]; simvastatin 5 mg Oral tab 1 tab once daily for Mixed Hyperlipidemia [Active]; - PMHx: 17:30 Anemia; Colitis; PUD; Hypertension; peptic ulcer; PE; irregular heart beat; bp Hyperlipidemia; hiatal hernia; Gastric Reflux; epidural steroid injections; Diverticulitis; Diabetes - IDDM; colonoscopy; - Immunization history:: Adult Immunizations up to date, Client reports receiving the 2nd dose of the Covid vaccine. - Social history:: Smoking status: Patient denies any tobacco usage or history of. ROS: 17:34 Constitutional: Negative for fever, chills, and weight loss, Eyes: Negative for injury, sp3 pain, redness, and discharge, ENT: Negative for injury, pain, and discharge, Neck: Negative for injury, pain, and swelling, Cardiovascular: Negative for chest pain, palpitations, and edema, Respiratory: Negative for shortness of breath, cough, wheezing, and pleuritic chest pain, Abdomen/GI: Negative for abdominal pain, nausea, vomiting, diarrhea, and constipation, Back: Negative for injury and pain, MS/Extremity: Negative for injury and deformity, Skin: Negative for injury, rash, and discoloration, Neuro: Negative for headache, weakness, numbness, tingling, and seizure, Psych: Negative for depression, anxiety, suicide ideation, homicidal ideation, and hallucinations, Allergy/Immunology: Negative for hives, rash, and allergies, Endocrine: Negative for neck swelling, polydipsia, polyuria, polyphagia, and marked weight changes. 17:34 All other systems are negative. Exam: 17:35 Constitutional: This is a well developed, well nourished patient who is awake, alert, sp3 and in no acute distress. Head/Face: Normocephalic, atraumatic. Eyes: Pupils equal round and reactive to light, extra-ocular motions intact. Lids and lashes normal. Conjunctiva and sclera are non-icteric and not injected. Cornea within normal limits. Periorbital areas with no swelling, redness, or edema. ENT: Nares patent. No nasal discharge, no septal abnormalities noted. External auditory canals are clear. Oropharynx with no redness, swelling, or masses, exudates, or evidence of obstruction, uvula midline. Mucous membranes moist. Neck: Trachea midline, no thyromegaly or masses palpated, and no cervical lymphadenopathy. Supple, full range of motion without nuchal rigidity, or vertebral point tenderness. No Meningismus. Chest/axilla: Normal chest wall appearance and motion. Nontender with no deformity. No lesions are appreciated. Cardiovascular: Regular rate and rhythm with a normal S1 and S2. No gallops, murmurs, or rubs. Normal PMI, no JVD. No pulse deficits. Respiratory: Lungs have equal breath sounds bilaterally, clear to auscultation and percussion. No rales, rhonchi or wheezes noted. No increased work of breathing, no retractions or nasal flaring. Abdomen/GI: Soft, non-tender, with normal bowel sounds. No distension or tympany. No guarding or rebound. No evidence of tenderness throughout. Back: No spinal tenderness. No costovertebral tenderness. Full range of motion. Skin: Warm, dry with normal turgor. Normal color with no rashes, no lesions, and no evidence of cellulitis. MS/ Extremity: Pulses equal, no cyanosis. Neurovascular intact. Full, normal range of motion. Neuro: Awake and alert, GCS 15, oriented to person, place, time, and situation. Cranial nerves II-XII grossly intact. Motor strength 5/5 in all extremities. Sensory grossly intact. Cerebellar exam normal. Normal gait. Psych: Awake, alert, with orientation to person, place and time. Behavior, mood, and affect are within normal limits. Vital Signs: 17:26 BP 148 / 87; Pulse 87; Resp 24; Temp 98; Pulse Ox 97% on R/A; bp 18:25 BP 138 / 66; Pulse 74; Resp 17; Pulse Ox 100% ; bp 19:11 BP 164 / 73; Pulse 80; Resp 18; Pulse Ox 98% on R/A; Pain 7/10; tw5 NIH Stroke Scale Scores: 17:30 NIHSS Score: 0 bp MDM: 17:18 Patient medically screened. sp3 17:35 Data reviewed: vital signs, nurses notes. ED course: 86-year-old female with likely sp3 TIA. We will obtain CT scan of the head laboratory values and will admit patient for further work-up given the nature of her symptoms. Symptoms are fully resolved at this time. She has not had a brain MRI or carotid Doppler study in the past to her knowledge.. 08/21 17:17 Order name: COVID-19 SARS RT PCR (Document "Date of Onset" if Symptomatic) ss 08/21 17:17 Order name: Basic Metabolic Panel; Complete Time: 18:39 sp3 08/21 17:17 Order name: CBC with Diff; Complete Time: 18:39 sp3 08/21 17:17 Order name: Protime (+inr); Complete Time: 18:39 sp3 08/21 17:17 Order name: Ptt, Activated; Complete Time: 18:39 sp3 08/21 17:17 Order name: Troponin High Sensitivity; Complete Time: 18:39 sp3 08/21 17:17 Order name: CT Stroke Brain w/o Contrast; Complete Time: 18:01 sp3 08/21 17:17 Order name: Stroke CXR 1 View; Complete Time: 18:01 sp3 08/21 17:17 Order name: EKG; Complete Time: 17:18 sp3 08/21 17:17 Order name: Accucheck; Complete Time: 18:04 sp3 08/21 17:17 Order name: Cardiac monitoring; Complete Time: 18:19 sp3 08/21 17:17 Order name: EKG - Nurse/Tech; Complete Time: 18:04 sp3 08/21 17:17 Order name: IV Saline Lock; Complete Time: 18:04 sp3 08/21 17:17 Order name: Labs collected and sent; Complete Time: 18:04 sp3 08/21 17:17 Order name: NPO; Complete Time: 18:04 sp3 08/21 17:17 Order name: O2 Per Protocol; Complete Time: 18:04 sp3 08/21 17:17 Order name: O2 Sat Monitoring; Complete Time: 18:04 sp3 08/21 17:17 Order name: Stroke Swallow Screen; Complete Time: 18:04 sp3 Administered Medications: 19:15 Drug: Aspirin Chewable Tablet 324 mg Route: PO; tw5 Disposition Summary: 08/21/21 18:24 Hospitalization Ordered Hospitalization Status: Observation sp3 Provider: Bjorn Ba sp3 Location: Telemetry/MedSurg (observation) sp3 Condition: Stable sp3 Problem: new sp3 Symptoms: have improved sp3 Bed/Room Type: Standard sp3 Room Assignment: 224(08/21/21 19:53) mw Diagnosis - Transient cerebral ischemic attack, unspecified sp3 Forms: - Medication Reconciliation Form sp3 - SBAR form sp3 NIH Stroke Scale - NIH Stroke Score Date: 08/21/2021 Time: 17:30 Total Score = 0 1a. Level of Consciousness (LOC) - 0(Alert) 1b. Level of Consciousness (LOC) (Month \\T\\ Age) - 0(Both) 1c. LOC Commands (Open \\T\\ Closes Eyes/Shaping Machine Tender) - 0(Both) 2. Best Gaze (Lateral Gaze Paresis) - 0(Normal) 3. Visual Field Loss - 0(No visual loss) 4. Facial Palsy - 0(Normal) 5a. Left Arm: Motor (10-second hold) - 0(No drift) 5b. Right Arm: Motor (10-second hold) - 0(No drift) 6a. Left Leg: Motor (5-second hold - always test supine) - 0(No drift) 6b. Right Leg: Motor (5-second hold - always test supine) - 0(No drift) 7. Limb Ataxia (finger/nose \\T\\ heel/tolbert - test with eyes open) - 0(Absent) 8. Sensory Loss (pinprick arms/legs/face) - 0(Normal) 9. Best Language: Aphasia (description/naming/reading) - 0(No aphasia) 10. Dysarthria (speech clarity - read or repeat words) - 0(Normal) 11. Extinction and Inattention (visual/tactile/auditory/spatial/personal) - 0(No abnormality) Initials: bp Signatures: Dispatcher [employer] EDMS Valeria Webb RN RN mw Ric Ham, HAND FLESHER-C HAND FLESHER-Cla1 Oscar Conn, RN RN bp Nahomy Chávez MD MD sp3 Bonnie Chandler tw5 Corrections: (The following items were deleted from the chart) 19:53 18:24 sp3 mw
--- NOTE | 2021-08-21 18:25 | ER ---
Nurse's Notes [facility] Name: Jeannette Thomas Age: 86 yrs Sex: Female : 1935 Arrival Date: 08/21/2021 Time: 17:16 Bed 3 Private MD: Diagnosis: Transient cerebral ischemic attack, unspecified Presentation: 08/21 17:26 Chief complaint: EMS states: 5-6 MINUTES OF GARBLED SPEECH AT HOME, NOW RESOLVED. bp Coronavirus screen: At this time, the client does not indicate any symptoms associated with coronavirus-19. Ebola Screen: No symptoms or risks identified at this time. No acute neurological deficit is noted. The patients blood glucose was checked before arriving to the hospital and was found to be normal. Initial Sepsis Screen: Does the patient meet any 2 criteria? No. Patient's initial sepsis screen is negative. Does the patient have a suspected source of infection? No. Patient's initial sepsis screen is negative. Risk Assessment: Do you want to hurt yourself or someone else? Patient reports no desire to harm self or others. 17:26 Method Of Arrival: EMS: [facility] bp 17:26 Acuity: OSVALDO 2 bp 20:27 Onset of symptoms is unknown. tw5 Triage Assessment: 17:30 The onset of the patients symptoms was August 21, 2021 at 17:00. General: Appears in no bp apparent distress. comfortable, Behavior is cooperative, appropriate for age, anxious. Pain: Denies pain. EENT: No deficits noted. Neuro: Level of Consciousness is awake, alert, obeys commands, Oriented to Appropriate for age Photostat Operator Helper are equal bilaterally Moves all extremities. Full function Gait is steady, Speech is normal, Facial symmetry appears normal, Reports MOMENTARY APHASIA AND DIZZINESS. Cardiovascular: No deficits noted. Respiratory: No deficits noted. GI: No signs and/or symptoms were reported involving the gastrointestinal system. : No signs and/or symptoms were reported regarding the genitourinary system. Derm: No deficits noted. Musculoskeletal: No deficits noted. Stroke Activation: Symptom onset < 3 hours Physician: Stroke Attending; Name: ; Notified At: ; Arrived At: Physician: Chief Stroke Resident; Name: ; Notified At: ; Arrived At: Physician: Stroke Resident; Name: ; Notified At: ; Arrived At: Physician: ED Attending; Name: ; Notified At: ; Arrived At: Physician: ED Resident; Name: ; Notified At: ; Arrived At: 17:26 S/S RESOLVED bp Historical: - Allergies: 17:30 Ciprofloxacin; bp 17:30 Crestor; bp 17:30 FLU VACCINE; bp 17:30 Fosamax; bp 17:30 Januvia; bp 17:30 Minocycline; bp 17:30 pneumonia vaccine; bp 17:30 Sulfa (Sulfonamide Antibiotics); bp 17:30 Victoza 2-Denny; bp - Home Meds: 17:30 aspirin 81 mg Oral chew 1 tab once daily [Active]; calcium 1200mg/ Vit D 3 1000mcg bp daily [Active]; estradol cream [Active]; folic acid 400 mcg Oral tab 1 tab once daily [Active]; glipizide 10 mg Oral tab 1 tab 2 times per day for Type 2 Diabetes Mellitus [Active]; hydrochlorothiazide 25 mg Oral tab 1 tab once daily [Active]; iron sulfate 325 mg daily [Active]; Lantus 100 unit/mL Sub-Q soln 18 unit daily for Type 2 Diabetes Mellitus [Active]; lisinopril 10 mg Oral tab 1 tab once daily for Hypertension [Active]; metformin 1,000 mg Oral tab 1 tab 2 times per day for Type 2 Diabetes Mellitus [Active]; methenamine hippurate 1 gram Oral tab 1 tab 2 times per day [Active]; metoprolol tartrate 50 mg Oral tab 1 tab 2 times per day for Hypertension [Active]; Nexium 40 mg Oral cpDR 1 cap once daily [Active]; simvastatin 5 mg Oral tab 1 tab once daily for Mixed Hyperlipidemia [Active]; - PMHx: 17:30 Anemia; Colitis; PUD; Hypertension; peptic ulcer; PE; irregular heart beat; bp Hyperlipidemia; hiatal hernia; Gastric Reflux; epidural steroid injections; Diverticulitis; Diabetes - IDDM; colonoscopy; - Immunization history:: Adult Immunizations up to date, Client reports receiving the 2nd dose of the Covid vaccine. - Social history:: Smoking status: Patient denies any tobacco usage or history of. Screenin:30 Abuse screen: Denies threats or abuse. Denies injuries from another. Nutritional bp screening: No deficits noted. Tuberculosis screening: No symptoms or risk factors identified. Fall Risk No fall in past 12 months (0 pts). Assessment: 17:30 VAN Scoring: Arm Drift: Patients demonstrates NO arm weakness. Patient is VAN Negative. bp The patient has not been NPO before screening. The patient is alert, and able to follow commands. The patient does not exhibit slurred or garbled speech. The patient is not exhibiting difficulty speaking. The patient does not exhibit difficulty understanding words. The patient is able to swallow own secretions with no drooling or need for suction. Patient tolerated one teaspoon of water. No drooling, immediate coughing, gurgling, or clearing of the throat was noted. The patient tolerated 90mL of water. No drooling, immediate coughing, gurgling, or clearing of the throat was noted. The patient passed the bedside swallow screening. Oral medications may be given as ordered. Contact Physician for further diet orders. Provider notified of bedside swallow screening results: Nahomy Chávez MD. T-PA (Activase) Screening: Contraindications: Rapidly improving condition or minor deficit: Yes. 18:25 Reassessment: No changes from previously documented assessment. Patient and/or family bp updated on plan of care and expected duration. Pain level reassessed. Neuro: Level of Consciousness is awake, alert, obeys commands, Oriented to Appropriate for age Photostat Operator Helper are equal bilaterally Moves all extremities. Full function Gait is steady, Speech is normal, Facial symmetry appears normal. 19:11 Reassessment: "I just have a slight headache right now.". Pain: Pain currently is 7 out tw5 of 10 on a pain scale. Vital Signs: 17:26 BP 148 / 87; Pulse 87; Resp 24; Temp 98; Pulse Ox 97% on R/A; bp 18:25 BP 138 / 66; Pulse 74; Resp 17; Pulse Ox 100% ; bp 19:11 BP 164 / 73; Pulse 80; Resp 18; Pulse Ox 98% on R/A; Pain 7/10; tw5 NIH Stroke Scale Scores: 17:30 NIHSS Score: 0 bp ED Course: 17:16 Patient arrived in ED. ss 17:16 Nahomy Chávez MD is Attending Physician. sp3 17:25 Oscar Conn, JENNIFER is Primary Nurse. bp 17:30 Triage completed. bp 17:30 Arm band placed on. bp 17:30 Maintain EMS IV. Dressing intact. Good blood return noted. Site clean \\T\\ dry. Gauge \\T\\ bp site: 22 G LEFT HAND. 17:42 CT Stroke Brain w/o Contrast In Process Unspecified. EDMS 17:43 Stroke CXR 1 View In Process Unspecified. EDMS 18:18 Patient has correct armband on for positive identification. Bed in low position. Call [facility] light in reach. Side rails up X 1. Warm blanket given. dietitian teaching on. Pulse ox on. NIBP on. 18:18 EKG done, by ED staff, reviewed by Nahomy Chávez MD. [facility] 18:19 COVID-19 SARS RT PCR (Document "Date of Onset" if Symptomatic) Sent. [facility] 18:23 Bjorn Ba is Hospitalizing Provider. sp3 19:03 Primary Nurse role handed off by Oscar Conn RN tw5 19:03 Bonnie Chandler is Primary Nurse. tw5 19:11 Awaiting bed assignment. tw5 19:11 Diet: Patient given snack. tw5 19:15 Call light in reach. tw5 20:26 No provider procedures requiring assistance completed. Patient admitted, IV remains in tw5 place. Administered Medications: 19:15 Drug: Aspirin Chewable Tablet 324 mg Route: PO; tw5 Outcome: 18:24 Decision to Hospitalize by Provider. sp3 20:08 Admitted to Med/surg Report called to Attempted to call report. No answer from second 5 floor 20:18 Admitted to Med/surg Report called to attempted to call report. Was placed on hold for tw5 5 min. 20:22 Admitted to Med/surg accompanied by lazaro, via wheelchair, room 224, with chart, Report tw5 called to Report called to Shelli 20:22 Condition: stable 20:27 Patient left the ED. tw5 NIH Stroke Scale - NIH Stroke Score Date: 08/21/2021 Time: 17:30 Total Score = 0 1a. Level of Consciousness (LOC) - 0(Alert) 1b. Level of Consciousness (LOC) (Month \\T\\ Age) - 0(Both) 1c. LOC Commands (Open \\T\\ Closes Eyes/Bark Fitter) - 0(Both) 2. Best Gaze (Lateral Gaze Paresis) - 0(Normal) 3. Visual Field Loss - 0(No visual loss) 4. Facial Palsy - 0(Normal) 5a. Left Arm: Motor (10-second hold) - 0(No drift) 5b. Right Arm: Motor (10-second hold) - 0(No drift) 6a. Left Leg: Motor (5-second hold - always test supine) - 0(No drift) 6b. Right Leg: Motor (5-second hold - always test supine) - 0(No drift) 7. Limb Ataxia (finger/nose \\T\\ heel/tolbert - test with eyes open) - 0(Absent) 8. Sensory Loss (pinprick arms/legs/face) - 0(Normal) 9. Best Language: Aphasia (description/naming/reading) - 0(No aphasia) 10. Dysarthria (speech clarity - read or repeat words) - 0(Normal) 11. Extinction and Inattention (visual/tactile/auditory/spatial/personal) - 0(No abnormality) Initials: bp Signatures: Dispatcher [employer] Radha Gusman, Toma Harvey RN 5 Oscar Conn RN RN bp Patel, Setul, MD MD sp3 Bonnie Chandler 5
[2021-08-21 18:31] LABS: Absolute Lymphocytes (CBC) 1.3 K/uL (0.7-4.9); Hematocrit 33.9 % (36.0-45.0); Lymphocytes % 22.1 % (15.3-44.8); RBC Red Blood Cell Count 3.55 M/uL (3.86-4.86)
[2021-08-21 18:32] LABS: Potassium 3.8 mmol/L (3.5-5.1); Troponin High Sensitivity 5.5 pg/mL (<58.9)
[2021-08-21] MEDS ORDERED: ASPIRIN 81 MG CHEWABLE TABLET ONE (19:13)
--- NOTE | 2021-08-21 19:17 | P.HP ---
Certification for Inpatient Patient admitted to: Observation With expected LOS: <2 Midnights Patient will require the following post-hospital care: None Practitioner: I am a practitioner with admitting privileges, knowledge of patient current condition, hospital course, and medical plan of care. Services: Services provided to patient in accordance with Admission requirements found in Title 42 Section 412.3 of the Code of Federal Regulations Patient History Date of Service: 08/21/21 Reason for admission: TIA History of Present Illness: 86-year-old female with history of CAD, hypertension, hyperlipidemia, insulin- dependent diabetes presents the emergency department for difficulties with speech. Patient reports that around 2 PM she had an episode that lasted for a "few minutes" where she had difficulty finding her words, had confusion and problems with her memory. This was a very acute episode that came on rapidly and has fully resolved at this time. Patient denies similar episodes in the past. At this time patient symptoms have fully resolved her NIH score is a 0 CT head without contrast negative for any acute findings her labs overall are unremarkable aside from mild hyperglycemia. ED provider wishes to admit under observation for suspected TIA. Patient previously was taking aspirin daily but quit about 1 week ago was given dose of aspirin as well as her statin medication in the emergency department prior to admission. Will admit for further evaluation and management of suspected TIA. Allergies alendronate sodium [From Fosamax] Allergy (Unverified 01/10/17 02:28) Unknown ciprofloxacin Allergy (Unverified 01/10/17 02:28) Unknown minocycline Allergy (Unverified 01/10/17 02:28) Unknown rosuvastatin [From Crestor] Allergy (Verified 04/21/16 04:39) Unknown sitagliptin [From Januvia] Allergy (Unverified 01/10/17 02:28) Unknown Sulfa (Sulfonamide Antibiotics) Allergy (Verified 04/21/16 04:39) Unknown flu vacc Allergy (Uncoded 04/21/16 04:39) Unknown FLU VACCINE Allergy (Uncoded 01/10/17 02:28) Unknown pneumonia v Allergy (Uncoded 01/10/17 02:28) Unknown pneumonia vaccin Allergy (Uncoded 04/21/16 04:39) Unknown Victoza 2-P Allergy (Uncoded 01/10/17 02:28) Unknown Home Medications: Aspirin 81 mg PO DAILY 04/21/16 Calcium Carbonate [Calcium] 600 mg PO DAILY 04/21/16 Esomeprazole Mag Trihydrate [Nexium] 40 mg PO DAILY 04/21/16 Hydrochlorothiazide 50 mg PO DAILY 04/21/16 Insulin Glargine,Hum.rec.anlog [Lantus] 16 unit SQ BEDTIME 04/21/16 Metformin HCl [Glucophage] 1,000 mg PO BID 04/21/16 Metoprolol Tartrate 1 tab PO BID 04/21/16 Simvastatin 5 mg PO BEDTIME 04/21/16 glipiZIDE [Glucotrol] 10 mg PO BIDWM 04/21/16 lisinopriL [Lisinopril] 10 mg PO DAILY 04/21/16 Azithromycin Tab [Zithromax*] 250 mg PO ZPAK #1 christian 04/22/16 Benzonatate [Tessalon Perle*] 100 mg PO Q6H PRN #30 cap 04/22/16 Ipratropium/Albuterol Sulfate [Combivent Respimat 20-100 Mcg] 4 gm IH QID PRN #1 aer.w.adap 04/22/16 - Past Medical/Surgical History Diabetic: Yes -: IDDM -: HTN -: PE -: Hyperlipidemia -: Hiatal Hernia -: Hyperlipidemia -: Hysterectomy -: Cardiac Stent -: Rectocele -: Cystocele Psychosocial/ Personal History: Patient lives at home, alone is very independent. - Family History Mother -: Diabetes Brother -: Cancer Notes: lung cancer Father -: Heart disease - Social History Smoking Status: Never smoker Alcohol use: No CD- Drugs: No Caffeine use: Yes Place of Residence: Home Review of Systems 10-point ROS is otherwise unremarkable Neurological: As per HPI Physical Examination - Physical Exam General: Alert, In no apparent distress, Oriented x3 HEENT: Atraumatic, PERRLA, Mucous membr. moist/pink, EOMI, Sclerae nonicteric Neck: Supple, 2+ carotid pulse no bruit, No LAD, Without JVD or thyroid abnormality Respiratory: Clear to auscultation bilaterally, Normal air movement Cardiovascular: Regular rate/rhythm, Normal S1 S2 Gastrointestinal: Normal bowel sounds, No tenderness Musculoskeletal: No tenderness Integumentary: No rashes Neurological: Normal gait, Normal speech, Normal strength at 5/5 x4 extr, Normal tone, Sensation intact, Cranial nerves 3-12 intact, Normal affect Lymphatics: No axilla or inguinal lymphadenopathy - Studies Laboratory Data (last 24 hrs) 08/21/21 18:00: PT 11.5, INR 1.04, APTT 21.4 L 08/21/21 18:00: WBC 5.9, Hgb 11.8 L, Hct 33.9 L, Plt Count 183 08/21/21 18:00: Sodium 133 L, Potassium 3.8, BUN 16, Creatinine 0.92, Glucose 190 H Assessment and Plan - Plan Assessment: Aphasia/dysphasiaresolved suspect TIA Hypertension Diabetes mellitus type 2insulin-dependent with hyperglycemia Hyperlipidemia History of CAD Plan: Aphasia/dysphasiaresolved suspect TIA: Neurology consulted continue aspirin, statin, folic acid. Carotid Doppler ordered, will order MRI unsure if this will be able to be obtained given it is the weekend. Monitor patient closely with neurochecks. Continue medications to control risk factors. Hypertension: Continue home medications Diabetes mellitus type 2insulin-dependent with hyperglycemia: Continue home medications takes Lantus 20 units daily in addition to oral medications Hyperlipidemia: Continue statin, obtain lipid panel in the morning History of CAD: Continue home medications, monitor on telemetry. Patient reports she has "irregular beats periodically" denies history of A. fib. Currently sinus rhythm with PVCs. DVT PPX: Lovenox Code status: Full Discharge Plan: Home Plan to discharge in: 24 Hours - Advance Directives Does patient have a Living Will: No Does patient have a Durable POA for Healthcare: No - Code Status/Comfort Care Code Status Assessed: Yes (Full code) Critical Care: No Time Spent Managing Pts Care (In Minutes): 55
[2021-08-21] MEDS: INSULIN -REGULAR HUMAN 50 UNIT/0.5 ML ML SQ SCH (21:42)
[2021-08-21] MEDS ORDERED: ONDANSETRON 4 MG/2 ML VIAL IV PRN (21:42)
[2021-08-21] MEDS: ACETAMINOPHEN 500 MG TAB PO PRN (21:52)
[2021-08-21 22:53] VITALS: O2SAT 96
[2021-08-21 23:06] VITALS: BMI 31.4
[2021-08-22 06:15] LABS: Absolute Lymphocytes (CBC) 1.1 K/uL (0.7-4.9); Hematocrit 32.3 % (36.0-45.0); Lymphocytes % 27.7 % (15.3-44.8); MPV 11.8 fL (7.6-11.3)
[2021-08-22] MEDS: ACETAMINOPHEN 500 MG TAB PO PRN (06:19)
[2021-08-22] MEDS: INSULIN GLARGINE 100 UNIT/ML SQ SCH ×2 (06:20→08:33)
[2021-08-22 06:34] LABS: AST/SGOT 7 U/L (15-37); Alkaline Phosphatase 35 U/L (45-117); BUN Blood Urea Nitrogen 15 mg/dL (7-18); Bicarbonate 26 mmol/L (21-32); Bilirubin Total 0.3 mg/dL (0.2-1.0); Glucose Level 103 mg/dL (74-106); HDL Cholesterol 39 mg/dL (40-60); LDL Cholesterol, Calculated 77 mg/dL (<130); Potassium 3.8 mmol/L (3.5-5.1); Protein, Total 5.8 g/dL (6.4-8.2); Sodium Level 133 mmol/L (136-145)
[2021-08-22 06:41] LABS: ALT/SGPT < 10 U/L (12-78)
[2021-08-22] MEDS: INSULIN -REGULAR HUMAN 50 UNIT/0.5 ML ML SQ SCH ×2 (07:30→11:47)
[2021-08-22 08:05] LABS: Blood Morphology Comment NOT SEEN (NOT SEEN); Platelet Estimate ADEQ; Platelets, Giant FEW
[2021-08-22] MEDS ORDERED: ENOXAPARIN 40 MG/0.4 ML SQ SCH (09:00)
[2021-08-22] MEDS ORDERED: POTASSIUM 25 MEQ EFFERV TAB PO ONE (09:00)
[2021-08-22] MEDS ORDERED: FOLIC ACID 1 MG TABLET PO SCH (09:00)
[2021-08-22] MEDS ORDERED: ASPIRIN EC 81 MG TAB PO SCH (09:00)
--- NOTE | 2021-08-22 09:23 | EKG ---
Test Date: 2021-08-21 Test Time: 18:12:03 Ip Architect: KENNEDY MEASUREMENT RESULTS: Intervals: Rate: 76 ND: 140 QRSD: 92 QT: 400 QTc: 450 [place]: P: 44 ND: 140 QRS: 1 T: 52 INTERPRETIVE STATEMENTS: Normal sinus rhythm Possible Anterior infarct, age undetermined Abnormal ECG Compared to ECG 08/25/2019 14:50:24 Myocardial infarct finding now present ST (T wave) deviation no longer present Electronically Signed On 08-22-21 09:22:24 CDT by Donnie Vlae
--- NOTE | 2021-08-22 11:18 | P.DS ---
Admission Date: 08/21/21 Discharge Date: 08/22/21 Disposition: ROUTINE DISCHARGE Discharge Condition: FAIR Reason for Admission: TIA - Problems (1) TIA (transient ischemic attack) Status: Acute (2) Diabetes mellitus Status: Acute Qualifiers: Diabetes mellitus type: type 2 Diabetes mellitus manager long term care insulin use: with manager long term care use Diabetes mellitus complication status: with unspecified complications Brief History of Present Illness: 86-year-old female with history of CAD, hypertension, hyperlipidemia, insulin- dependent diabetes presents the emergency department for difficulties with speech. Patient reported that around 2 PM she had an episode that lasted for a "few minutes" where she had difficulty finding her words, had confusion and problems with her memory. Patient denied similar episodes in the past. NIH score of [address] head without contrast negative for any acute findings her labs overall are unremarkable aside from mild hyperglycemia. Placed under observation for further work-up for TIA. Hospital Course: Her initial troponin was negative. Patient was asymptomatic during the hospital stay. Blood pressure moderately elevated with her home antihypertensives. Lipid profile within normal range. Case discussed with neurology-Dr. Dalal who recommended to continue baby aspirin, add Plavix high-dose statins and follow-up with him in the office to for follow-up. Patient clinically stable for discharge. Vital Signs/Physical Exam: Temp Pulse Resp BP Pulse Ox 97.5 F 66 16 132/86 94 08/22/21 08:00 08/22/21 08:00 08/22/21 08:00 08/22/21 08:00 08/22/21 08:00 General: Alert, In no apparent distress, Oriented x3 HEENT: Mucous membr. moist/pink Neck: Supple, JVD not distended Respiratory: Clear to auscultation bilaterally, Normal air movement Cardiovascular: No edema, Regular rate/rhythm, Normal S1 S2 Gastrointestinal: Soft and benign, Non-distended Musculoskeletal: No swelling, No tenderness Integumentary: No rashes, No cyanosis Neurological: Normal speech, Normal strength at 5/5 x4 extr, Cranial nerves 3-12 intact Laboratory Data at Discharge: WBC 4.0 K/uL (4.3-10.9) L D 08/22/21 05:39 Hgb 10.9 g/dL (12.0-15.0) L 08/22/21 05:39 Hct 32.3 % (36.0-45.0) L 08/22/21 05:39 Plt Count 186 K/uL (152-406) 08/22/21 05:39 PT 11.5 SECONDS (9.5-12.5) 08/21/21 18:00 INR 1.04 08/21/21 18:00 APTT 21.4 SECONDS (24.3-36.9) L 08/21/21 18:00 Sodium 133 mmol/L (136-145) L 08/22/21 05:39 Potassium 3.8 mmol/L (3.5-5.1) 08/22/21 05:39 BUN 15 mg/dL (7-18) 08/22/21 05:39 Creatinine 0.83 mg/dL (0.55-1.3) 08/22/21 05:39 Glucose 103 mg/dL (74-106) 08/22/21 05:39 Total Bilirubin 0.3 mg/dL (0.2-1.0) 08/22/21 05:39 AST 7 U/L (15-37) L 08/22/21 05:39 ALT < 10 U/L (12-78) L 08/22/21 05:39 Alkaline Phosphatase 35 U/L (45-117) L 08/22/21 05:39 Triglycerides 94 mg/dL (<150) 08/22/21 05:39 Cholesterol 135 mg/dL (<200) 08/22/21 05:39 HDL Cholesterol 39 mg/dL (40-60) L 08/22/21 05:39 Cholesterol/HDL Ratio 3.46 08/22/21 05:39 Home Medications: Aspirin [Aspirin EC 81 MG] 81 mg PO DAILY 08/21/21 Esomeprazole Mag Trihydrate [Nexium] 40 mg PO DAILY 08/21/21 Insulin Glargine,Hum.rec.anlog [Lantus] 20 units SQ DAILY 08/21/21 Lisinopril [Zestril] 10 mg PO DAILY 08/21/21 Metformin HCl [Metformin ER Gastric] 1,000 mg PO BID 08/21/21 Metoprolol Tartrate [Lopressor*] 50 mg PO BID 08/21/21 glipiZIDE [Glipizide] 10 mg PO BID 08/21/21 hydroCHLOROthiazide [Hydrochlorothiazide] 25 mg PO DAILY 08/21/21 Atorvastatin Calcium [Lipitor] 40 mg PO BEDTIME #30 tab 08/22/21 Clopidogrel Bisulfate [Plavix] 75 mg PO DAILY #30 tablet 08/22/21 Folic Acid 1 mg PO DAILY #30 tablet 08/22/21 New Medications: Folic Acid 1 mg PO DAILY #30 tablet Atorvastatin Calcium [Lipitor] 40 mg PO BEDTIME #30 tab Clopidogrel Bisulfate [Plavix] 75 mg PO DAILY #30 tablet Diet: ADA Activity: Ad sunday Followup: Sulaiman Dalal MD [ASSOCIATE-ACTIVE - CAN ADMIT] - 1 Week (Call to schedule appointment)
--- NOTE | 2021-08-22 11:46 | RAD REPORT ---
EXAM DESCRIPTION: US - CP - 08/22/2021 11:34 am CLINICAL HISTORY: TIA COMPARISON: Carotid Artery Bilateral dated 07/20/2019 TECHNIQUE: Real-time sonographic evaluation of both carotid systems was performed. Doppler interroga tion was performed with waveform tracing bilaterally. FINDINGS: Normal high resistance waveforms are noted in both external carotid arteries. The common c arotid arteries and internal carotid arteries show normal low resistance waveforms. Hard plaque present at both carotid bulbs. Peak systolic and end diastolic velocity values and the IC A/CCA ratios are in the non-hemodynamically significant range. Antegrade flow seen in both vertebral arteries. IMPRESSION: Mild hard plaque at the carotid bulbs. No evidence of a hemodynamically significant stenosis.
[2021-08-22 12:30] VITALS: BP 137/60; TEMP 97.9
[2021-08-22] MEDS ORDERED: ATORVASTATIN 10 MG TAB PO SCH (21:00)
== END 2021-08-22 13:04 | disposition home or self-care (01) ==
LOC: ER 17:15 → ERHOLD 19:05 → 2ND 20:00
PROVIDERS: ADMIT Internal Medicine; ATTEND Internal Medicine
DX: G45.9 Transient cerebral ischemic attack, unspecified (principal); E11.65 Type 2 diabetes mellitus with hyperglycemia; I10 Essential (primary) hypertension; E78.5 Hyperlipidemia, unspecified; I25.10 Atherosclerotic heart disease of native coronary artery without angina pectoris; I49.3 Ventricular premature depolarization; R29.700 NIHSS score 0; Z20.822 Contact with and (suspected) exposure to COVID-19; Z79.4 Long term (current) use of insulin; Z79.84 Long term (current) use of oral hypoglycemic drugs; Z79.02 Long term (current) use of antithrombotics/antiplatelets; Z79.82 Long term (current) use of aspirin; Z79.899 Other long term (current) drug therapy; Z88.2 Allergy status to sulfonamides; Z88.7 Allergy status to serum and vaccine; Z88.8 Allergy status to other drugs, medicaments and biological substances; Z86.711 Personal history of pulmonary embolism; Z95.5 Presence of coronary angioplasty implant and graft; Z90.710 Acquired absence of both cervix and uterus; Z83.3 Family history of diabetes mellitus; Z80.1 Family history of malignant neoplasm of trachea, bronchus and lung; Z82.49 Family history of ischemic heart disease and other diseases of the circulatory system
CPT/HCPCS: 93005; 85025 ×2; 80048; 36415; 85610; 80061; 82947 ×4; 85730; 84484; 80053; 70450; 71045; 93880; 99285; U0003; J1815; J1650; G0378 ×3

== ENCOUNTER 2021-10-22 11:04 | Inpatient (IN) | payer OTHER ==
--- NOTE | 2021-10-22 12:12 | RAD REPORT ---
EXAM DESCRIPTION: RAD - Chest Single View - 10/22/2021 12:02 pm CLINICAL HISTORY: SOB COMPARISON: Portable 08/21/2021 TECHNIQUE: AP portable chest image was obtained 10/22/2021 12:02 pm . FINDINGS: No focal mass or consolidation. Patient has a baseline chronic interstitial lung pattern. This is not different from prior imaging but could mask early interstitial edema or infiltrate. Trachea is midline. Right pericardial fat pad is present. Heart and vasculature are normal. No measur able pleural effusion and no pneumothorax. No acute bony abnormality seen. No acute aortic findings s uspected. IMPRESSION: No acute cardiopulmonary process. Patient has a chronic interstitial lung pattern similar to comparison. This could potentially mask mi nimal edema or infiltrate.
[2021-10-22 13:10] LABS: Absolute Lymphocytes (CBC) 0.8 K/uL (0.7-4.9); Hematocrit 33.1 % (36.0-45.0); Lymphocytes % 15.7 % (15.3-44.8); MCV 95.4 fL (80-100); MPV 11.5 fL (7.6-11.3); RBC Red Blood Cell Count 3.47 M/uL (3.86-4.86)
[2021-10-22 13:24] LABS: Potassium 3.9 mmol/L (3.5-5.1); Troponin High Sensitivity 5.8 pg/mL (<58.9)
[2021-10-22 13:50] LABS: Blood Morphology Comment NOT SEEN (NOT SEEN); Platelet Estimate ADEQ; Platelets, Giant PRESENT
--- NOTE | 2021-10-22 13:59 | EDPHYS ---
Physician Documentation [facility] Name: Jeannette Thomas Age: 86 yrs Sex: Female : 1935 Arrival Date: 10/22/2021 Time: 11:05 Bed 5 Private MD: ED Physician Ash Tong HPI: 10/22 12:07 This 86 yrs old Female presents to ER via Unassigned with complaints of Shortness Of ms3 Breath. 12:07 The patient has shortness of breath with light activity. Onset: The symptoms/episode ms3 began/occurred acutely, 3 day(s) ago. Duration: The symptoms are continuous, and are steadily getting worse. The patient's shortness of breath is aggravated by exertion, is alleviated by rest. Associated signs and symptoms: Pertinent negatives: chest pain, nausea, vomiting. Severity of symptoms: At their worst the symptoms were moderate in the emergency department the symptoms are unchanged Pain is currently a 0 / 10. Historical: - Allergies: 11:42 Ciprofloxacin; ha1 11:42 Crestor; ha1 11:42 FLU VACCINE; ha1 11:42 Fosamax; ha1 11:42 Januvia; ha1 11:42 Minocycline; ha1 11:42 pneumonia vaccine; ha1 11:42 Sulfa (Sulfonamide Antibiotics); ha1 11:42 Victoza 2-Denny; ha1 - PMHx: 11:42 Anemia; Colitis; Diabetes - IDDM; Diverticulitis; epidural steroid injections; ha1 Hyperlipidemia; Gastric Reflux; Hypertension; hiatal hernia; irregular heart beat; PE; peptic ulcer; PUD; TIA; - PSHx: 11:42 Total abdominal hysterectomy; heart stent; parathyroid; hernia; cystocyle; ha1 - Immunization history:: Client reports receiving the 2nd dose of the Covid vaccine. - Social history:: Smoking status: Patient denies any tobacco usage or history of. ROS: 12:07 Constitutional: Negative for fever, and chills. Eyes: Negative for injury, pain, ms3 redness, and discharge, ENT: Negative for injury, pain, and discharge, Neck: Negative for injury, pain, and swelling, Cardiovascular: Negative for chest pain, and palpitations. Abdomen/GI: Negative for abdominal pain, nausea, vomiting, diarrhea, and constipation, MS/Extremity: Negative for injury and deformity, Skin: Negative for injury, rash, and discoloration, Neuro: Negative for headache, weakness, numbness, tingling. Allergy/Immunology: Negative for hives, rash, and allergies. 12:07 Respiratory: Positive for shortness of breath, on exertion. 12:07 All other systems are negative. Exam: 12:07 Constitutional: This is a well developed, well nourished patient who is awake, alert, ms3 and in no acute distress. Head/Face: Normocephalic, atraumatic. Neck: Trachea midline, no cervical lymphadenopathy. Supple, full range of motion without nuchal rigidity, or vertebral point tenderness. No Meningismus. Chest/axilla: Normal chest wall appearance and motion. Nontender with no deformity. Cardiovascular: Regular rate and rhythm with a normal S1 and S2. No gallops, murmurs, or rubs. Normal PMI, no JVD. No pulse deficits. Abdomen/GI: Soft, non-tender, with normal bowel sounds. No distension or tympany. No guarding or rebound. No evidence of tenderness throughout. Skin: Warm, dry with normal turgor. Normal color with no rashes, no lesions, and no evidence of cellulitis. 12:07 Respiratory: the patient does not display signs of respiratory distress, Respirations: normal, Breath sounds: rales, that are mild, are located in both bases. 12:46 ECG was reviewed by the Attending Physician. ms3 Vital Signs: 11:42 BP 143 / 49; Pulse 77; Resp 18 S; Temp 98.1(TE); Pulse Ox 96% on R/A; Weight 83.01 kg ha1 (R); Height 5 ft. 5 in. (165.10 cm) (R); Pain 0/10; 13:34 BP 142 / 50; Pulse 73; Resp 16; Temp 98.1; Pulse Ox 97% on R/A; ha1 14:00 BP 160 / 82; Pulse 74; Resp 16; Pulse Ox 100% on R/A; ha1 15:00 BP 163 / 57; Pulse 88; Resp 16; Pulse Ox 97% on R/A; ha1 17:48 BP 152 / 60; Pulse 82; Resp 14 S; Pulse Ox 100% on R/A; aa5 11:42 Body Mass Index 30.45 (83.01 kg, 165.10 cm) ha1 MDM: 11:53 Patient medically screened. ms3 12:07 Differential diagnosis: CHF exacerbation, pulmonary edema. ms3 13:56 Data reviewed: vital signs, nurses notes, lab test result(s), EKG, radiologic studies, ms3 and as a result, I will admit patient. Data interpreted: school lunch monitor: rate is 60 beats/min, rhythm is normal sinus rhythm, with no ectopy, Interpretation: normal rate, normal rhythm. Counseling: I had a detailed discussion with the patient and/or guardian regarding: the historical points, exam findings, and any diagnostic results supporting the discharge/admit diagnosis, lab results, radiology results, the need for further work-up and treatment in the hospital. ED course: Discussed case with Dr Estevez and he accepts admission. Discussed plan for admission with patient. She understands/ agrees with plan.. 10/22 11:19 Order name: Basic Metabolic Panel; Complete Time: 13:53 ms3 10/22 11:19 Order name: CBC with Diff; Complete Time: 13:53 ms3 10/22 11:19 Order name: NT PRO-BNP; Complete Time: 13:53 ms3 10/22 11:19 Order name: Troponin HS; Complete Time: 13:53 ms3 10/22 13:16 Order name: Manual Differential; Complete Time: 13:53 EDMS 10/22 14:27 Order name: COVID-19 SARS RT PCR (Document "Date of Onset" if Symptomatic); Complete dh3 Time: 17:35 10/22 11:19 Order name: XRAY Chest (1 view); Complete Time: 12:16 ms3 10/22 11:19 Order name: EKG; Complete Time: 11:19 ms3 10/22 11:19 Order name: Cardiac monitoring; Complete Time: 13:15 ms3 10/22 11:19 Order name: EKG - Nurse/Tech; Complete Time: 13:15 ms3 10/22 11:19 Order name: IV Saline Lock; Complete Time: 13:15 ms3 10/22 11:19 Order name: Labs collected and sent; Complete Time: 13:15 ms3 10/22 16:12 Order name: D-Dimer; Complete Time: 17:35 EDMS 10/22 11:19 Order name: O2 Per Protocol; Complete Time: 13:15 ms3 10/22 11:19 Order name: O2 Sat Monitoring; Complete Time: 13:15 ms3 EC:46 Rate is 73 beats/min. Rhythm is regular. QRS Randle is Normal. CT interval is normal. QRS ms3 interval is normal. Clinical impression: Normal ECG. Interpreted by me. Reviewed by me. Administered Medications: 15:50 Drug: Lasix (furosemide) 40 mg Route: IVP; Site: right wrist; aa5 Disposition Summary: 10/22/21 13:58 Hospitalization Ordered Hospitalization Status: Inpatient Admission ms3 Provider: Demetrius Estevez ms3 Location: Telemetry/MedSurg (Inpatient) ms3 Condition: Stable ms3 Problem: new ms3 Symptoms: are unchanged ms3 Bed/Room Type: Standard ms3 Room Assignment: 224(10/22/21 17:31) [facility] Diagnosis - Congestive Heart failure ms3 - dyspnea ms3 Forms: - Medication Reconciliation Form ms3 - SBAR form ms3 Signatures: Dispatcher [employer] EDWagner Baez PA PA jmm Calderon, Audri, RN RN aa5 Ash Tong DO DO ms3 Dayanna Burns RN RN ha1 Corrections: (The following items were deleted from the chart) 17:31 13:58 ms3 [facility]
--- NOTE | 2021-10-22 13:59 | ER ---
Nurse's Notes [facility] Name: Jeannette Thomas Age: 86 yrs Sex: Female : 1935 Arrival Date: 10/22/2021 Time: 11:05 Bed 5 Private MD: Diagnosis: Congestive Heart failure;dyspnea Presentation: 10/22 11:42 Chief complaint: Patient states: SOB x 5 days ago. denies cough, reports negative covid ha1 and negative flu swab at PCP. 11:42 Coronavirus screen: shortness of breath. Ebola Screen: Patient denies travel to an ha1 Ebola-affected area in the 21 days before illness onset. Initial Sepsis Screen: Does the patient meet any 2 criteria? No. Patient's initial sepsis screen is negative. Does the patient have a suspected source of infection? No. Patient's initial sepsis screen is negative. Risk Assessment: Do you want to hurt yourself or someone else? Patient reports no desire to harm self or others. Onset of symptoms was October 2021. 11:42 Acuity: OSVALDO 3 ha1 11:42 Method Of Arrival: Ambulatory [facility] Triage Assessment: 11:42 Respiratory: Onset: The symptoms/episode began/occurred five days ago, the patient has ha1 moderate shortness of breath. 11:42 General: Appears comfortable. ha1 Historical: - Allergies: 11:42 Ciprofloxacin; ha1 11:42 Crestor; ha1 11:42 FLU VACCINE; ha1 11:42 Fosamax; ha1 11:42 Januvia; ha1 11:42 Minocycline; ha1 11:42 pneumonia vaccine; ha1 11:42 Sulfa (Sulfonamide Antibiotics); ha1 11:42 Victoza 2-Denny; ha1 - PMHx: 11:42 Anemia; Colitis; Diabetes - IDDM; Diverticulitis; epidural steroid injections; ha1 Hyperlipidemia; Gastric Reflux; Hypertension; hiatal hernia; irregular heart beat; PE; peptic ulcer; PUD; TIA; - PSHx: 11:42 Total abdominal hysterectomy; heart stent; parathyroid; hernia; cystocyle; ha1 - Immunization history:: Client reports receiving the 2nd dose of the Covid vaccine. - Social history:: Smoking status: Patient denies any tobacco usage or history of. Screenin:40 Abuse screen: Denies threats or abuse. Nutritional screening: No deficits noted. ha1 Tuberculosis screening: No symptoms or risk factors identified. Fall Risk Secondary diagnosis (15 points) TIA, IV access (20 points). Total Lema Fall Scale indicates Low Risk Score (25-44 pts). Fall prevention measures have been instituted. Side Rails Up X 2. Assessment: 11:42 General: Appears comfortable, Behavior is calm. Pain: Denies pain. Neuro: Level of ha1 Consciousness is awake, alert, obeys commands, Oriented to person, place, time, situation. Cardiovascular: Reports shortness of breath, Heart tones S1 S2 present Rhythm is sinus rhythm Chest pain is denied. Respiratory: Reports shortness of breath on exertion Airway is patent Respiratory effort is even, unlabored, Respiratory pattern is tachypnea Breath sounds are clear bilaterally. GI: Abdomen is non-distended, Bowel sounds present X 4 quads. Abd is soft X 4 quads. : No signs and/or symptoms were reported regarding the genitourinary system. EENT: No signs and/or symptoms were reported regarding the EENT system. Derm: Skin is pink, warm \T\ dry. Musculoskeletal: Range of motion: intact in all extremities. 13:34 Reassessment: Patient is alert, oriented x 3, equal unlabored respirations, skin ha1 warm/dry/pink. 15:00 Reassessment: Patient is alert, oriented x 3, equal unlabored respirations, skin ha1 warm/dry/pink. awaiting admission orders for room assigments.. 17:48 Reassessment: Patient is alert, oriented x 3, equal unlabored respirations, skin aa5 warm/dry/pink. 18:25 Reassessment: Patient is alert, oriented x 3, equal unlabored respirations, skin aa5 warm/dry/pink. Vital Signs: 11:42 BP 143 / 49; Pulse 77; Resp 18 S; Temp 98.1(TE); Pulse Ox 96% on R/A; Weight 83.01 kg ha1 (R); Height 5 ft. 5 in. (165.10 cm) (R); Pain 0/10; 13:34 BP 142 / 50; Pulse 73; Resp 16; Temp 98.1; Pulse Ox 97% on R/A; ha1 14:00 BP 160 / 82; Pulse 74; Resp 16; Pulse Ox 100% on R/A; ha1 15:00 BP 163 / 57; Pulse 88; Resp 16; Pulse Ox 97% on R/A; ha1 17:48 BP 152 / 60; Pulse 82; Resp 14 S; Pulse Ox 100% on R/A; aa5 11:42 Body Mass Index 30.45 (83.01 kg, 165.10 cm) ha1 ED Course: 11:05 Patient arrived in ED. rg4 11:13 Ash Tong DO is Attending Physician. ms3 11:42 Arm band placed on. ha1 11:42 Patient has correct armband on for positive identification. Placed in gown. Bed in low ha1 position. Call light in reach. Side rails up X2. Client placed on continuous cardiac and pulse oximetry monitoring. NIBP monitoring applied. 12:03 XRAY Chest (1 view) In Process Unspecified. EDMS 12:20 Dayanna Burns RN is Primary Nurse. ha1 12:27 Triage completed. ha1 12:40 Initial lab(s) drawn, by [facility], sent to lab. Missed attempt(s): 20 gauge in left ha1 antecubital area. Bleeding controlled, band aid applied, catheter tip intact. 12:40 EKG done, by ED staff, reviewed by Ash Tong DO. ha1 13:58 Demetrius Estevez MD is Hospitalizing Provider. ms3 15:00 Inserted saline lock: 22 gauge in right wrist, using aseptic technique. aa5 18:25 No provider procedures requiring assistance completed. Patient admitted, IV remains in aa5 place. Administered Medications: 15:50 Drug: Lasix (furosemide) 40 mg Route: IVP; Site: right wrist; aa5 Medication: 18:25 VIS not applicable for this client. aa5 Outcome: 13:58 Decision to Hospitalize by Provider. ms3 18:25 Admitted to Tele accompanied by nurse, via wheelchair, with chart, Report called to yair Alves RN 18:25 Condition: stable 18:25 Discharge instructions given to patient, Instructed on the need for admit, Demonstrated understanding of instructions. 18:28 Patient left the ED. ss Signatures: Dispatcher [employer] EDTN Renate Rubio RN RN aa Radha Carney RN RN ss Garcia, Rubi 4 Ash Tong DO DO ms3 Dayanna Burns, RN RN ha1 Corrections: (The following items were deleted from the chart) 11:59 11:43 Renate Rubio, JENNIFER is Primary Nurse. aa5 aa5
--- NOTE | 2021-10-22 14:18 | P.HP ---
Certification for Inpatient Patient admitted to: Inpatient With expected LOS: >2 Midnights Patient will require the following post-hospital care: None Practitioner: I am a practitioner with admitting privileges, knowledge of patient current condition, hospital course, and medical plan of care. Services: Services provided to patient in accordance with Admission requirements found in Title 42 Section 412.3 of the Code of Federal Regulations Patient History Date of Service: 10/22/21 Reason for admission: Acute Congestive Heart Failure History of Present Illness: Ms. Jeannette Thomas is a pleasant 86 year old female who has a past medical history of coronary artery disease s/p PCI to LAD (2005), prior pulmonary embolism (2003), type II diabetes mellitus, prior transient ischemic attack, hypertension, and dyslipidemia who presents to the [facility] Emergency Department for shortness of breath. She reports that, over the last 2-3 days, she has been experiencing progressively worsening shortness of breath. She denies any pain or radiation of symptoms. She states that the shortness of breath is worse with exertion and is relieved by rest. She has not tried taking any medications for her symptoms. On review of systems, she denies any fevers, chills, headaches, dizziness, syncope, weakness, chest pain, palpitations, wheezing, cough, abdominal pain, nausea/vomiting, diarrhea, constipation, hematochezia, melena, dysuria, hematuria, myalgia, or any other symptoms. She presented to the Emergency Department for further evaluation. Upon presentation, her vital signs were stable. Her laboratory studies were notable for a glucose of 215 and a BNP of 969. EKG revealed normal sinus rhythm without STEMI criteria. Chest x-ray revealed, "no acute cardiopulmonary process. Patient has a chronic interstitial lung pattern similar to comparison. This could potentially mask minimal edema or infiltrate." In the Emergency Department, she was given furosemide 40 mg IV x 1. She was admitted to the General Internal Medicine service for further evaluation. Allergies alendronate sodium [From Fosamax] Allergy (Verified 08/21/21 22:35) Unknown ciprofloxacin Allergy (Verified 08/21/21 22:35) Unknown minocycline Allergy (Verified 08/21/21 22:37) Unknown rosuvastatin [From Crestor] Allergy (Verified 08/21/21 22:35) Unknown sitagliptin [From Januvia] Allergy (Verified 08/21/21 22:35) Unknown Sulfa (Sulfonamide Antibiotics) Allergy (Verified 08/21/21 22:35) Unknown flu vacc Allergy (Uncoded 04/21/16 04:39) Unknown FLU VACCINE Allergy (Uncoded 01/10/17 02:28) Unknown pneumonia v Allergy (Uncoded 01/10/17 02:28) Unknown pneumonia vaccin Allergy (Uncoded 08/21/21 22:37) Unknown Victoza 2-P Allergy (Uncoded 01/10/17 02:28) Unknown Home medications list reviewed: Yes Home Medications: Aspirin [Aspirin EC 81 MG] 81 mg PO DAILY 08/21/21 Esomeprazole Mag Trihydrate [Nexium] 40 mg PO DAILY 08/21/21 Insulin Glargine,Hum.rec.anlog [Lantus] 20 units SQ DAILY 08/21/21 Lisinopril [Zestril] 10 mg PO DAILY 08/21/21 Metformin HCl [Metformin ER Gastric] 1,000 mg PO BID 08/21/21 Metoprolol Tartrate [Lopressor*] 50 mg PO BID 08/21/21 glipiZIDE [Glipizide] 10 mg PO BID 08/21/21 hydroCHLOROthiazide [Hydrochlorothiazide] 25 mg PO DAILY 08/21/21 Atorvastatin Calcium [Lipitor] 40 mg PO BEDTIME #30 tab 08/22/21 Clopidogrel Bisulfate [Plavix] 75 mg PO DAILY #30 tablet 08/22/21 Folic Acid 1 mg PO DAILY #30 tablet 08/22/21 - Past Medical/Surgical History Diabetic: Yes -: IDDM -: HTN -: PE -: Hyperlipidemia -: Hiatal Hernia -: Hyperlipidemia -: Hysterectomy -: Cardiac Stent -: Rectocele -: Cystocele Psychosocial/ Personal History: Patient lives at home, alone is very independent. - Family History Mother -: Diabetes Brother -: Cancer Notes: lung cancer Father -: Heart disease - Social History Alcohol use: No CD- Drugs: No Caffeine use: Yes Review of Systems General: Unremarkable Eyes: Unremarkable ENT: Unremarkable Respiratory: Shortness of Breath, SOB with Excertion Cardiovascular: Unremarkable Gastrointestinal: Unremarkable Genitourinary: Unremarkable Musculoskeletal: Unremarkable Integumentary: Unremarkable Neurological: Unremarkable Physical Examination - Vital Signs Temperature: 98.1 F Blood Pressure: 163/57 Pulse: 88 Respirations: 16 Pulse Ox (%): 97 - Physical Exam General: Alert, In no apparent distress HEENT: Atraumatic, Mucous membr. moist/pink Neck: Supple, JVD distended (mild) Respiratory: Normal air movement, Crackles/rales (bibasilar) Cardiovascular: Regular rate/rhythm, Normal S1 S2, No gallops, No rubs, No murmurs, Edema (trace bilateral) Gastrointestinal: Normal bowel sounds, Soft and benign, No tenderness, No rebound, No guarding Musculoskeletal: No clubbing Integumentary: No rashes Neurological: Normal speech, Normal affect - Studies Laboratory Data (last 24 hrs) 10/22/21 12:50: WBC 4.9, Hgb 11.0 L, Hct 33.1 L, Plt Count 214 10/22/21 12:50: Sodium 134 L, Potassium 3.9, BUN 12, Creatinine 0.95, Glucose 215 H Assessment and Plan - Plan # Acute Decompensated Congestive Heart Failure (Unknown Ejection Fraction) She presents with symptoms of shortness of breath, dyspnea on exertion, and lower extremity edema. On exam, she demonstrates pulmonary crackles, bilateral lower extremity edema, and jugular venous distension. At this time, will admit for diuresis and medical optimization. - Consult Cardiology and notified Dr. Burgos recommendations appreciated - Ordered transthoracic echocardiogram - Diuresis with IV furosemide - Continue home metoprolol, lisinopril - BNP = 969 - Daily weights - Strict I/O - Cardiac diet, 2 L fluid restriction, 2 g Na restriction # Coronary Artery Disease s/p PCI to LAD (2005) # History of Transient Ischemic Attack (September 2021) # History of Pulmonary Embolism (2003) # Hypertension # Dyslipidemia - Cardiology consulted - recommendations appreciated - Denies chest pain - Serial troponin given shortness of breath - EKG = NSR without STEMI criteria - Continue home lisinopril, metoprolol, simvastatin, clopidogrel - Hold home hydrochlorothiazide while hospitalized # Hyperglycemia in Type II Diabetes Mellitus - Ordered Hgb A1c - Continue home insulin glargine 20 units daily - Ordered correction scale insulin - Hold home metformin, glipizide while hospitalized Demetrius Estevez MD Discharge Plan: Home Plan to discharge in: 48 Hours - Advance Directives Does patient have a Living Will: No Does patient have a Durable POA for Healthcare: No - Code Status/Comfort Care Code Status Assessed: Yes Code Status: Full Code Critical Care: No
[2021-10-22] MEDS ORDERED: FUROSEMIDE 40 MG/4 ML VIAL ONE (14:45)
[2021-10-22] MEDS: INSULIN -REGULAR HUMAN 50 UNIT/0.5 ML ML SQ SCH ×2 (18:07→20:16)
[2021-10-22] MEDS: METOPROLOL TAR 50 MG TAB PO SCH (20:18)
[2021-10-22] MEDS: ATORVASTATIN 20 MG TAB PO SCH (20:18)
[2021-10-23] MEDS: ACETAMINOPHEN 500 MG TAB PO PRN (01:14)
[2021-10-23] MEDS ORDERED: ACETAMINOPHEN 500 MG TAB PO ONE (05:02)
[2021-10-23] MEDS: PANTOPRAZOLE 40MG TABLET PO SCH (05:29)
[2021-10-23 06:31] LABS: Albumin 2.9 g/dL (3.4-5.0); Bilirubin Total 0.5 mg/dL (0.2-1.0); Magnesium 1.6 mg/dL (1.8-2.4); Phosphorus 4.2 mg/dL (2.5-4.9); Potassium 3.9 mmol/L (3.5-5.1); Protein, Total 5.9 g/dL (6.4-8.2)
[2021-10-23 07:00] LABS: Hematocrit 30.8 % (36.0-45.0); MCV 92.9 fL (80-100); MPV 11.3 fL (7.6-11.3); RBC Red Blood Cell Count 3.32 M/uL (3.86-4.86)
[2021-10-23] MEDS: INSULIN -REGULAR HUMAN 50 UNIT/0.5 ML ML SQ SCH ×4 (07:30→20:30)
[2021-10-23 08:31] LABS: Blood Morphology Comment NOT SEEN (NOT SEEN); Platelet Estimate ADEQ; Platelets, Giant 2+
[2021-10-23] MEDS ORDERED: MAGNESIUM SULFATE 1 gm IVPB 1 GM/100 ML BAG IV ONE (09:00)
[2021-10-23] MEDS ORDERED: POTASSIUM CL SA 10 MEQ TAB PO ONE (09:00)
[2021-10-23] MEDS: INSULIN GLARGINE 100 UNIT/ML SQ SCH (09:12)
[2021-10-23] MEDS: FUROSEMIDE 20 MG/ 2ML VIAL IV SCH ×2 (09:13→18:24)
[2021-10-23] MEDS: CLOPIDOGREL 75 MG TABLET PO SCH (09:13)
[2021-10-23] MEDS: lisinopriL 10 MG TAB PO SCH (09:14)
[2021-10-23] MEDS: METOPROLOL TAR 50 MG TAB PO SCH ×2 (09:14→20:31)
[2021-10-23 12:29] LABS: Urine Appearance Clear (Clear); Urine Bilirubin Negative (Negative); Urine Blood Negative (Negative); Urine Color Yellow (Yellow); Urine Glucose 1+ (Negative); Urine Protein Negative (Negative); Urine Urobilinogen 0.2 mg/dL (0.2-1.0)
--- NOTE | 2021-10-23 16:03 | P.PN ---
Subjective Date of Service: 10/23/21 Chief Complaint: Acute Congestive Heart Failure Subjective: No new changes, Improving (reports shortness of breath has improved significantly. No new concerns this morning.) Review of Systems General: Unremarkable Eyes: Unremarkable ENT: Unremarkable Respiratory: Shortness of Breath Cardiovascular: Unremarkable Gastrointestinal: Unremarkable Genitourinary: Unremarkable Musculoskeletal: Unremarkable Integumentary: Unremarkable Neurological: Unremarkable Physical Examination - Vital Signs Temperature: 97.0 F Blood Pressure: 135/63 Pulse: 66 Respirations: 14 Pulse Ox (%): 96 - Physical Exam General: Alert, In no apparent distress, Oriented x3 HEENT: Atraumatic, Mucous membr. moist/pink Neck: Supple, JVD not distended Respiratory: Normal air movement, Crackles/rales (faint) Cardiovascular: Regular rate/rhythm, Normal S1 S2, No gallops, No rubs, No murmurs, Edema (trace) Gastrointestinal: Normal bowel sounds, Soft and benign, No tenderness, No rebound, No guarding Musculoskeletal: No clubbing Integumentary: No rashes Neurological: Normal speech, Normal affect Assessment And Plan - Plan # Acute Decompensated Congestive Heart Failure (Unknown Ejection Fraction) She presents with symptoms of shortness of breath, dyspnea on exertion, and lower extremity edema. On exam, she demonstrates pulmonary crackles, bilateral lower extremity edema, and jugular venous distension. Symptoms have improved significantly since admission. - Consult Cardiology and notified Dr. Burgos recommendations appreciated - Continue IV furosemide x 1 more day, plan to transition to PO tomorrow - Ordered transthoracic echocardiogram = pending - Continue home metoprolol, lisinopril - BNP = 969 - Daily weights - Strict I/O - Cardiac diet, 2 L fluid restriction, 2 g Na restriction # Coronary Artery Disease s/p PCI to LAD (2005) # History of Transient Ischemic Attack (September 2021) # History of Pulmonary Embolism (2003) # Hypertension # Dyslipidemia - Cardiology consulted - recommendations appreciated - Denies chest pain - Serial troponin given shortness of breath - 5.8 -> 5.9 - EKG = NSR without STEMI criteria - Continue home lisinopril, metoprolol, simvastatin, clopidogrel - Hold home hydrochlorothiazide while hospitalized # Hyperglycemia in Type II Diabetes Mellitus - Ordered Hgb A1c - Continue home insulin glargine 20 units daily - Ordered correction scale insulin - Hold home metformin, glipizide while hospitalized Demetrius Estevez MD Discharge Plan: Home Plan to discharge in: 24 Hours - Code Status/Comfort Care Code Status Assessed: Yes Code Status: Full Code Critical Care: No
--- NOTE | 2021-10-23 20:28 | CON ---
Date of Consultation: 10/23/2021 Reason For Consultation: CHF. History Of Present Illness: An 86-year-old female, history of coronary artery disease, status post P CI 2005, history of PE, diabetes, TIA, hypertension, dyslipidemia, presented with shortness of breath , orthopnea, and lower extremity edema for the past 3 days, getting worse. Denies having chest pain. Denies any cough. No fever, nausea, vomiting, or diarrhea. Past Medical History: As outlined above in the HPI. Medications: Refer to reconciliation sheet for detailed list. Allergies: LONG LIST OF ALLERGIES WAS REVIEWED. PLEASE REFER TO THE NURSE'S NOTES. Family History: No premature coronary artery disease, but there is a history of lung cancer in the f amily. Social History: Does not smoke or drink. Does not use any drugs. Review of Systems: All systems reviewed were negative except as mentioned in HPI. Physical Examination: Vital Signs: Temperature is 97.0, pulse 66, breathing at 14, blood pressure 135/63, saturating 96% o n room air. General: Pleasant elderly female, in no apparent distress. Head and Neck: Pupils are equal and reactive to light. Intact eye movements. No JVD. Neck: Supple. Thyroid is not enlarged. Lungs: Clear to auscultation bilaterally. No rhonchi, rales, or crackles. No accessory muscle use. Heart: Regular rate and rhythm. No extra sounds. Abdomen: Soft, nontender. Bowel sounds positive. No organomegaly. No masses or hernia. No rigidi ty or rebound. Extremities: No clubbing, cyanosis. Intact pulses. Skin: No rash. Neurologic: Alert, awake, oriented x3. No acute events appreciated. Lymph Nodes: No cervical lymphadenopathy. Investigations: Creatinine 0.95. Hemoglobin is 10.5. Troponin is 5.9, highly sensitive, this is ne gative. The chest x-ray, no acute abnormality. Assessment And Recommendations: 1.Acute on chronic congestive heart failure exacerbation. She did significantly better with Lasix. D-dimer was done which was negative. At this point, recommend to increase the Lasix to 40 mg IV q.1 2 hours 1 more day, diurese, and then, switch her to oral and plan to discharge her within next 24 ho urs and plan for outpatient echocardiogram and stress test. 2.Dyslipidemia, on Lipitor. Continue current management. 3.Coronary artery disease. Continue with the current anti-platelet regimen and plan for exercise nu clear stress test as an outpatient. SR/MODL Voice ID: [id number] Report ID: [id number]
[2021-10-23] MEDS: ATORVASTATIN 20 MG TAB PO SCH (20:31)
[2021-10-23] MEDS ORDERED: MELATONIN 5 MG TABLET PO PRN (20:35)
[2021-10-24] MEDS: ACETAMINOPHEN 500 MG TAB PO PRN (02:27)
[2021-10-24 04:25] VITALS: O2SAT 95
[2021-10-24] MEDS: PANTOPRAZOLE 40MG TABLET PO SCH (05:29)
[2021-10-24 06:24] VITALS: BMI 29.2
[2021-10-24 06:26] LABS: Hematocrit 33.1 % (36.0-45.0); MCV 93.2 fL (80-100); MPV 11.2 fL (7.6-11.3); RBC Red Blood Cell Count 3.55 M/uL (3.86-4.86)
[2021-10-24 06:31] LABS: Potassium 3.8 mmol/L (3.5-5.1)
[2021-10-24 07:20] LABS: Platelet Estimate ADEQ; Platelets, Giant F
[2021-10-24] MEDS: INSULIN GLARGINE 100 UNIT/ML SQ SCH (08:07)
[2021-10-24] MEDS: lisinopriL 10 MG TAB PO SCH (08:07)
[2021-10-24] MEDS: METOPROLOL TAR 50 MG TAB PO SCH (08:07)
[2021-10-24] MEDS: INSULIN -REGULAR HUMAN 50 UNIT/0.5 ML ML SQ SCH ×2 (08:07→12:11)
[2021-10-24] MEDS: CLOPIDOGREL 75 MG TABLET PO SCH (08:07)
[2021-10-24] MEDS: FUROSEMIDE 20 MG/ 2ML VIAL IV SCH (08:08)
[2021-10-24] MEDS ORDERED: POTASSIUM CL SA 10 MEQ TAB PO ONE (09:00)
[2021-10-24 12:11] VITALS: BP 146/65; TEMP 97.5
--- NOTE | 2021-10-24 12:25 | P.DS ---
Admission Date: 10/22/21 Discharge Date: 10/24/21 Disposition: ROUTINE DISCHARGE Discharge Condition: GOOD Reason for Admission: Acute Congestive Heart Failure Consultations: 1. Cardiology Hospital Course: DIAGNOSES: # Acute Decompensated Congestive Heart Failure (Unknown Ejection Fraction) # Coronary Artery Disease s/p PCI to LAD (2005) # History of Transient Ischemic Attack (September 2021) # History of Pulmonary Embolism (2003) # Hypertension # Dyslipidemia # Hyperglycemia in Type II Diabetes Mellitus HOSPITAL COURSE: Ms. Jeannette Thomas is a pleasant 86 year old female who has a past medical history of coronary artery disease s/p PCI to LAD (2005), prior pulmonary embolism (2003), type II diabetes mellitus, prior transient ischemic attack, hypertensio n, and dyslipidemia who was admitted to the [facility] on 10/22/2021 for shortness of breath. Upon presentation, her vital signs were stable. Her laboratory studies were notable for a glucose of 215 and a BNP of 969. EKG revealed normal sinus rhythm without STEMI criteria. Chest x-ray revealed, "no acute cardiopulmonary process. Patient has a chronic interstitial lung pattern similar to comparison. This could potentially mask minimal edema or infiltrate." She was found to have acuteonset congestive heart failure, and she was admitted to the General Internal Medicine service for further evaluation. Cardiology was consulted and she was evaluated by Dr. Burgos. Over her hospital course, she was diuresed with IV furosemide, with significant improvement in her respiratory status. A transthoracic echocardiogram was performed, but read is pending at the time of discharge. She has been cleared for discharge by Dr. Burgos, and she will follow-up with him in clinic in 1 to 2 weeks. On 10/24/2021, she was seen on morning rounds and deemed medically stable for discharge. She was discharged with instructions to schedule follow-up appointments with her PCP in 3-5 days and with cardiology (Dr. Burgos) in 1-2 weeks. She was provided prescriptions for furosemide 20 mg daily per Cardiology recommendations. She was given the opportunity to ask questions and reported no further questions. Furthermore, all questions were answered to the best of my ability. Today, I personally spent 20 minutes on her case, of which greater than 50% of the time was spent in patient education, counseling, and coordination of care as described above. Vital Signs/Physical Exam: Temp Pulse Resp BP Pulse Ox 97.5 F 76 16 146/65 H 98 10/24/21 12:00 10/24/21 12:00 10/24/21 12:00 10/24/21 12:00 10/24/21 12:00 General: Alert, In no apparent distress, Oriented x3 HEENT: Atraumatic, Mucous membr. moist/pink, EOMI Neck: Supple, JVD not distended Respiratory: Clear to auscultation bilaterally, Normal air movement Cardiovascular: Regular rate/rhythm, Normal S1 S2, No gallops, No rubs, No murmurs, Edema (trace bilateral) Gastrointestinal: Normal bowel sounds, Soft and benign, No tenderness, No rebound, No guarding Musculoskeletal: No clubbing Integumentary: No rashes Neurological: Normal speech, Normal affect Laboratory Data at Discharge: WBC 4.6 K/uL (4.3-10.9) D 10/24/21 06:04 Hgb 11.4 g/dL (12.0-15.0) L 10/24/21 06:04 Hct 33.1 % (36.0-45.0) L 10/24/21 06:04 Plt Count 232 K/uL (152-406) 10/24/21 06:04 Sodium 131 mmol/L (136-145) L 10/24/21 06:04 Potassium 3.8 mmol/L (3.5-5.1) 10/24/21 06:04 BUN 15 mg/dL (7-18) 10/24/21 06:04 Creatinine 1.01 mg/dL (0.55-1.3) 10/24/21 06:04 Glucose 235 mg/dL (74-106) H 10/24/21 06:04 Phosphorus 4.2 mg/dL (2.5-4.9) 10/23/21 05:55 Magnesium 2.0 mg/dL (1.8-2.4) 10/24/21 06:04 Total Bilirubin 0.5 mg/dL (0.2-1.0) 10/23/21 05:55 AST 6 U/L (15-37) L 10/23/21 05:55 ALT 11 U/L (12-78) L 10/23/21 05:55 Alkaline Phosphatase 42 U/L (45-117) L 10/23/21 05:55 Home Medications: Esomeprazole Mag Trihydrate [Nexium] 40 mg PO DAILY 08/21/21 Insulin Glargine,Hum.rec.anlog [Lantus] 20 units SQ DAILY 08/21/21 Lisinopril [Zestril] 10 mg PO DAILY 08/21/21 Metformin HCl [Metformin ER Gastric] 1,000 mg PO BID 08/21/21 Metoprolol Tartrate [Lopressor*] 50 mg PO BID 08/21/21 glipiZIDE [Glipizide] 10 mg PO BID 08/21/21 Clopidogrel Bisulfate [Plavix] 75 mg PO DAILY #30 tablet 08/22/21 Folic Acid 1 mg PO DAILY #30 tablet 08/22/21 Calcium 1200mg/Vit D3 1000mcg 1 tab PO DAILY 10/22/21 Simvastatin 20 mg PO BEDTIME 10/22/21 Furosemide 20 mg PO DAILY #30 tablet 10/24/21 New Medications: Furosemide 20 mg PO DAILY #30 tablet Physician Discharge Instructions: 1. Please schedule a follow-up appointment with your PCP in 3-5 days. 2. Please schedule a follow-up appointment with Dr. Burgos (Cardiology) in 1-2 weeks. Diet: Low sodium Activity: Ad sunday Followup: SURENDRA AGOSTO [Primary Care Provider] - Justin Burgos MD [ACTIVE - CAN ADMIT] -
--- NOTE | 2021-10-26 07:48 | ECHO ---
HEIGHT: 5 ft 5 in WEIGHT: 175 lb 11.2 oz DATE OF STUDY: 10/23/[address]: Demetrius Estevez MD 2-DIMENSIONAL: YES M.MODE: YES DOPPLER: YES COLOR FLOW: YES TDS: NO PORTABLE: YES DEFINITY: NO BUBBLE STUDY: NO DIAGNOSIS: ACUTE CONGESTIVE HEART FAILURE CARDIAC HISTORY: CATHERIZATION:YES SURGERY: NO PROSTHETIC VALVE: NO PACEMAKER: NO MEASUREMENTS (cm) DIASTOLIC (NORMALS) SYSTOLIC (NORMALS) IVSd 1.1 (0.6-1.2) LA Diam 4.2 (1.9-4.0) LVEF 55-60% LVIDd 4.5 (3.5-5.7) LVIDs 3.3 (2.0-3.5) %FS 27% LVPWd 1.4 (0.6-1.2) Ao Diam 2.9 (2.0-3.7) 2 DIMENSIONAL ASSESSMENT: RIGHT ATRIUM: NORMAL LEFT ATRIUM: ENLARGED RIGHT VENTRICLE: NORMAL LEFT VENTRICLE: NORMAL TRICUSPID VALVE: MITRAL VALVE: PULMONIC VALVE: NORMAL AORTIC VALVE: NORMAL PERICARDIAL EFFUSION: NONE AORTIC ROOT: NORMAL LEFT VENTRICULAR WALL MOTION: NORMAL DOPPLER/COLOR FLOW: MILD MITRAL AND TRICUSPID REGURGITATION. COMMENTS: NORMAL LEFT VENTRICULAR EJECTION FRACTION 55-60%. GRADE I DIASTOLIC DYSFUNCTION. NORMAL WALL MOTION. MILD MITRAL AND TRICUSPID REGURGITATION. TECHNOLOGIST: Angelo MAGALLANES
--- NOTE | 2021-10-26 14:02 | EKG ---
Test Date: 2021-10-22 Test Time: 12:46:35 Product Development Manager: [place] MEASUREMENT RESULTS: Intervals: Rate: 73 NE: 128 QRSD: 88 QT: 404 QTc: 445 Blunt: P: 25 NE: 128 QRS: 12 T: 30 INTERPRETIVE STATEMENTS: Normal sinus rhythm Normal ECG Compared to ECG 08/21/2021 18:12:03 Myocardial infarct finding no longer present Electronically Signed On 10-26-21 13:53:20 CDT by Justin Burgos
--- OUTSIDE RECORDS SUMMARY | 2021-11-04 16:55 | XMS REPORT | Continuity of Care Document ---
:1935 Author Organization [facility] t Address [address] [place] [address] Care Team Providers Name Role Phone RORY AMADOH Primary Care Physician Unavailable Jorge Attending Clinician Unavailable Payers Payer Name Policy Type Policy Number Effective Date Expiration Date S ource Problems This patient has no known problems. Allergies, Adverse Reactions, Alerts Allergy Allergy Status Severity Reaction(s) Onset Inactive Treating Comm ents Source Name Type Date Date Clinician IBANDRON Allergy Active [facility] CEFACLOR Allergy Active [facility] ROSUVAST Allergy Active [facility] ALENDRON Allergy Active [facility] ATORVAST Allergy Active [facility] SULFA Allergy Active Other [facility] ([facility]ULFONA [facility] ANTIBIOT 00 [place] [facility] rosuvast DA [facility] Clear calcium 00:00: Stephen 00 [facility] Sulfa DA Active [facility] (Sulfona 6-29 Clear mide 00:00: Stephen Antibiot 00 [facility] cefaclor DA Active [facility] 6[facility] Clear 00:00: Stephen 00 [facility] alendron DA Active [facility] ate 6- Clear sodium 00:00: Stephen 00 [facility] atorvast DA Active U 2010- [facility]- Clear calcium 00:00: Stephen 00 [facility] Medications This patient has no known medications. Procedures This patient has no known procedures. Encounters Start End Encounter Admission Attending Care Care Encounter Source Date/Time Date/Time Type Type Clinicians Facility Department ID [facility]05[facility] [id number] Common 14:36:45 Julisa 0118 [facility] 2021-05-[address] [facility] [id number] Common 12:49:54 Julisa 0409 [facility] 2021-05-[address] [facility] [id number] Common 12:49:17 Julisa 0408 [facility] 2019-01-11 2019-01-11 Outpatient [facility] 7503 [facility] 09:10:00 09:10:00 Results This patient has no known results.
== END 2021-10-24 13:52 | disposition home or self-care (01) | DRG 291 ==
LOC: ER 11:04 → ERHOLD 15:25 → 2ND 18:03
PROVIDERS: ADMIT Internal Medicine; ATTEND Internal Medicine
DX: I11.0 Hypertensive heart disease with heart failure (principal); I50.33 Acute on chronic diastolic (congestive) heart failure; I25.10 Atherosclerotic heart disease of native coronary artery without angina pectoris; E78.5 Hyperlipidemia, unspecified; E11.65 Type 2 diabetes mellitus with hyperglycemia; Z88.2 Allergy status to sulfonamides; Z79.4 Long term (current) use of insulin; Z86.711 Personal history of pulmonary embolism; Z95.5 Presence of coronary angioplasty implant and graft; Z86.73 Personal history of transient ischemic attack (TIA), and cerebral infarction without residual deficits; Z20.822 Contact with and (suspected) exposure to COVID-19
CPT/HCPCS: 36415; 71045; 80048; 80053; 81003; 82947; 83036; 83735; 83880; 84100; 84484; 85025; 85027; 85379; 93005; 93306; 96374; 99285; J1815; J1940; J3475; U0003

== ENCOUNTER 2021-10-26 17:09 | Emergency (ER) | payer OTHER ==
[2021-10-26 18:14] LABS: Absolute Lymphocytes (CBC) 1.1 K/uL (0.7-4.9); Hematocrit 33.4 % (36.0-45.0); Lymphocytes % 19.6 % (15.3-44.8); MCV 93.3 fL (80-100); MPV 11.8 fL (7.6-11.3); RBC Red Blood Cell Count 3.58 M/uL (3.86-4.86)
[2021-10-26 18:17] LABS: Protime INR 1.03
[2021-10-26 18:24] LABS: Potassium 3.9 mmol/L (3.5-5.1)
--- NOTE | 2021-10-26 18:34 | RAD REPORT ---
EXAM DESCRIPTION: RAD - Chest Single View - 10/26/2021 6:11 pm CLINICAL HISTORY: left rib pain, fall COMPARISON: Portable 10/22/2021 TECHNIQUE: AP portable chest image was obtained 10/26/2021 6:11 pm . FINDINGS: No pulmonary contusion or acute lung parenchymal process. Chronic interstitial pattern mat ches comparison. Heart and vasculature are normal. No measurable pleural effusion and no pneumothorax. No acute aorti c findings suspected. No gross rib deformity seen. Detail is limited on portable imaging. Dedicated rib films can be obtain ed as warranted. Bilateral AC joint degenerative changes are present. IMPRESSION: No acute cardiopulmonary process. No liver abnormality seen. Dedicated rib films could be obtained as warranted.
--- NOTE | 2021-10-26 19:54 | RAD REPORT ---
EXAM DESCRIPTION: CT - Head C Spine Cap W [place] - 10/26/2021 7:27 pm CLINICAL HISTORY: fall, head, neck, chest and abdomen pain COMPARISON: <Comparisons> TECHNIQUE: Axial [address] head images were obtained. Axial [address] cervical spine images were obtaine d with sagittal and coronal reconstruction images reviewed. During dynamic enhancement of 100mL non-i onic contrast, axial 5 mm images of the chest, abdomen and pelvis were obtained. Biphasic technique p erformed of the abdomen and pelvis. All CT scans are performed using dose optimization technique as appropriate and may include automated exposure control or mA/KV adjustment according to patient size. FINDINGS: No intracranial hemorrhage, mass or edema. No midline shift or abnormal fluid collection. Mild for age atrophy changes are present. Ventricles are proportion. Chronic ischemic changes are mil d. Arterial tree calcifications present. Mastoid air cells and paranasal sinuses are clear. No skull fracture. CT cervical spine imaging shows normal height. No subluxation abnormalities. C4-5 disc space narrowin g present. Endplate spurring seen with bony foraminal encroachment. Facet joint degenerative changes are present. No paraspinal hematoma. There is asymmetry with prominence the tonsillar tissue right. T his cannot be fully assessed blunt trauma protocol study. Central canal detail is inherently limited. Concerns for traumatic disc herniation or traumatic cord injury can be further addressed with MR jumana bolwes. CT chest shows no pneumothorax, pulmonary contusion or pleural fluid collection. No mediastinal hemat isabella and the aorta and pulmonary arteries are unremarkable. No chest will mass or abnormal axillary fi nding. No displaced rib fracture or other significant bony finding. Sclerotic focus in T2 is probabl y a bone island. There is no similar finding elsewhere. Bony metastatic disease is not suspected. CT abdomen and pelvis show no injury to solid abdominal viscera. Prominent diverticulosis without div erticulitis. Punctate gallstones are present. No acute gallbladder or biliary tree finding. No bowel injury or significant finding. Moderate-sized hiatal hernia is present. No free air, free fluid or ab normal stranding. No urinary bladder abnormality. No acute traumatic bone injuries are present. There are degenerative changes present. Contusion vicente es are seen in the subcutaneous fatty tissues lateral to the iliac crest and lateral to the mid abdom en. No significant vascular finding. IMPRESSION: No significant CT Head finding. No acute traumatic injury to the cervical spine. There does appear to be asymmetrically prominent rig ht-sided tonsillar tissue. Right-sided mass cannot be excluded on this examination. This finding can be correlated with physical exam findings and correlated with dedicated outpatient CT cervical spine imaging. No significant CT Chest finding. No acute traumatic peritoneal or retroperitoneal finding. Contusion changes are seen in the subcutane ous fatty tissues lateral mid abdomen and pelvis.
--- NOTE | 2021-10-26 20:25 | ER ---
Nurse's Notes [facility] Name: Jeannette Thomas Age: 86 yrs Sex: Female : 1935 Arrival Date: 10/26/2021 Time: 17:10 Bed 8 Private MD: Diagnosis: Contusion of back wall of thorax;Contusion of front wall of thorax;Contusion of abdominal wall;Fall on same level, unspecified Presentation: 10/26 17:36 Chief complaint: Patient states: she fell on her left side onto her marble table, then ap3 onto the floor. patient denies hitting her head. patient denies LOC. Patient presents to the ED with left sided rib pain and Patient reports taking plavix 75mg. Coronavirus screen: At this time, the client does not indicate any symptoms associated with coronavirus-19. Ebola Screen: No symptoms or risks identified at this time. Initial Sepsis Screen: Does the patient meet any 2 criteria? No. Patient's initial sepsis screen is negative. Does the patient have a suspected source of infection? No. Patient's initial sepsis screen is negative. Risk Assessment: Do you want to hurt yourself or someone else? Patient reports no desire to harm self or others. Onset of symptoms was October 26, 2021 at 06:00. 17:36 Method Of Arrival: Ambulatory ap3 17:36 Acuity: OSVALDO 3 ap3 17:42 Care prior to arrival: None. Mechanism of Injury: Fall from standing position. Trauma ap3 event details: Injury occurred in the [facility], Injury occurred: at home. Injury occurred: October 26, 2021 Injury occurred at: 06:00. Trauma Activation: Alert Physician: ED Physician; Name: ; Notified At: 17:41; Arrived At: 17:41 Physician: General Surgeon; Name: ; Notified At: 17:41; Arrived At: Physician: Radiology; Name: ; Notified At: 17:41; Arrived At: Physician: Respiratory; Name: ; Notified At: 17:41; Arrived At: Physician: Lab; Name: ; Notified At: 17:41; Arrived At: Historical: - Allergies: 17:40 Ciprofloxacin; ap3 17:40 Crestor; ap3 17:40 FLU VACCINE; ap3 17:40 Fosamax; ap3 17:40 Januvia; ap3 17:40 Minocycline; ap3 17:40 pneumonia vaccine; ap3 17:40 Sulfa (Sulfonamide Antibiotics); ap3 17:40 Victoza 2-Denny; ap3 - PMHx: 17:40 Anemia; Diverticulitis; epidural steroid injections; Colitis; hiatal hernia; ap3 colonoscopy; Diabetes - IDDM; Gastric Reflux; Hyperlipidemia; Hypertension; irregular heart beat; PE; peptic ulcer; PUD; TIA; - PSHx: 17:40 cystocyle; heart stent; hernia; parathyroid; Total abdominal hysterectomy; ap3 - Immunization history:: Client reports receiving the 2nd dose of the Covid vaccine. - Social history:: Smoking status: Patient denies any tobacco usage or history of. - Immunization history: Last tetanus immunization: - up to date. Screenin:00 Abuse screen: Denies threats or abuse. Nutritional screening: No deficits noted. ke1 Tuberculosis screening: No symptoms or risk factors identified. Fall Risk None identified. Primary Survey: 17:43 NO uncontrolled hemorrhage observed. Breathing/Chest: Respiratory effort: shallow, ap3 Respiratory pattern: regular. Circulation: No external hemorrhage present. Regular and strong central pulse, skin warm/dry/normal color. Disability Client is alert. Exposure/Environment: A warming method has been applied: A warm blanket has been provided to the patient. Reassessment Breathing: Respiratory effort Shallow Circulation: No external hemorrhage noted. Regular and strong central pulse, skin warm/dry/normal color. Disability: Alert. Assessment: 17:41 General: Appears uncomfortable, Behavior is restless. Pain: Complains of pain in ap3 diaphragm, left lateral posterior chest and left lateral anterior chest Pain began suddenly, 0600. Neuro: Level of Consciousness is awake, alert, obeys commands, Oriented to person, place, time, situation. Cardiovascular: Patient's skin is warm and dry. Respiratory: Airway is patent Respiratory effort is even, shallow. Injury Description: Bruise sustained to left lateral posterior chest and left lateral anterior chest. Vital Signs: 17:36 BP 136 / 69; Pulse 83; Resp 17; Temp 98.8; Pulse Ox 97% ; Weight 79.38 kg; Height 5 ft. ap3 5 in. (165.10 cm); 17:36 Body Mass Index 29.12 (79.38 kg, 165.10 cm) ap3 [place] Coma Score: 17:44 Eye Response: spontaneous(4). Verbal Response: oriented(5). Motor Response: obeys ap3 commands(6). Total: 15. Trauma Score (Adult): 17:44 Eye Response: spontaneous(1); Verbal Response: oriented(1); Motor Response: obeys ap3 commands(2); Systolic BP: > 89 mm Hg(4); Respiratory Rate: 10 to 29 per min(4); Pauline Score: 15; Trauma Score: 12 ED Course: 17:10 Patient arrived in ED. mr 17:40 Triage completed. ap3 17:44 Patient maintains SpO2 saturation greater than 95% on room air. ap3 17:45 Thermoregulation: warm blanket given to patient. ap3 17:45 Arm band placed on left wrist. ap3 18:01 Basic Metabolic Panel Sent. ap3 18:01 CBC with Diff Sent. ap3 18:01 Type And Screen Sent. ap3 18:01 PT-INR Sent. ap3 18:01 Ptt, Activated Sent. ap3 18:01 Inserted saline lock: 22 gauge in right forearm, using aseptic technique. Blood ap3 collected. 18:13 XRAY Chest (1 view) In Process Unspecified. EDMS 19:28 CT Traumagram (Head C Spine CAP W Con) In Process Unspecified. EDMS 20:00 No provider procedures requiring assistance completed. ke1 20:00 Bed in low position. Call light in reach. ke1 20:01 Angel Cooley MD is Attending Physician. heaven 21:15 Juancarlos Coreas, JENNIFER is Primary Nurse. ke1 21:21 INCENTIVE SPIROMETRY Sent. bb 21:30 IV discontinued. ke1 Administered Medications: 21:21 CANCELLED (Patient Refused): HYDROcodone-acetaminophen 5 mg-325 mg 1 tabs PO once bb 21:30 Drug: HYDROcodone-acetaminophen 5 mg-325 mg 1 tabs Route: PO; bb 21:50 Follow up: Response: Medication administered at discharge. bb Medication: 21:56 VIS not applicable for this client. ke1 Intake: 21:20 PO: 20ml; Total: 20ml. ke1 Outcome: 20:24 Discharge ordered by MD. heaven 21:30 Discharged to home ambulatory. ke1 21:30 Condition: good 21:30 Discharge instructions given to patient. 21:50 Patient left the ED. bb Signatures: Dispatcher [employer] EDAngel Gamino MD MD cha Rivera, Kelsey PazSmita, RN RN Herlinda Mccrary RN RN ap3 Juancarlos Coreas RN RN ke1
--- NOTE | 2021-10-26 20:25 | EDPHYS ---
Physician Documentation [facility] Name: Jeannette Thomas Age: 86 yrs Sex: Female : 1935 Arrival Date: 10/26/2021 Time: 17:10 Bed 8 Private MD: ED Physician Angel Cooley HPI: 10/26 20:20 This 86 yrs old Female presents to ER via Ambulatory with complaints of Fall heaven Injury, Chest Pain. 20:20 Details of fall: The patient fell from an upright position, while walking. Onset: The heaven symptoms/episode began/occurred this morning. Associated injuries: The patient sustained injury to the chest, injury to the abdomen. Severity of symptoms: At their worst the symptoms were mild, in the emergency department the symptoms are unchanged. The patient has not experienced similar symptoms in the past. Historical: - Allergies: 17:40 Ciprofloxacin; ap3 17:40 Crestor; ap3 17:40 FLU VACCINE; ap3 17:40 Fosamax; ap3 17:40 Januvia; ap3 17:40 Minocycline; ap3 17:40 pneumonia vaccine; ap3 17:40 Sulfa (Sulfonamide Antibiotics); ap3 17:40 Victoza 2-Denny; ap3 - PMHx: 17:40 Anemia; Diverticulitis; epidural steroid injections; Colitis; hiatal hernia; ap3 colonoscopy; Diabetes - IDDM; Gastric Reflux; Hyperlipidemia; Hypertension; irregular heart beat; PE; peptic ulcer; PUD; TIA; - PSHx: 17:40 cystocyle; heart stent; hernia; parathyroid; Total abdominal hysterectomy; ap3 - Immunization history:: Client reports receiving the 2nd dose of the Covid vaccine. - Social history:: Smoking status: Patient denies any tobacco usage or history of. - Immunization history: Last tetanus immunization: - up to date. ROS: 20:20 Constitutional: Negative for fever, chills, and weight loss, Eyes: Negative for injury, heaven pain, redness, and discharge, ENT: Negative for injury, pain, and discharge, Neck: Negative for injury, pain, and swelling, Cardiovascular: Negative for chest pain, palpitations, and edema, Respiratory: Negative for shortness of breath, cough, wheezing, and pleuritic chest pain, Back: Negative for injury and pain, : Negative for injury, bleeding, discharge, and swelling, MS/Extremity: Negative for injury and deformity, Skin: Negative for injury, rash, and discoloration, Neuro: Negative for headache, weakness, numbness, tingling, and seizure, Psych: Negative for depression, anxiety, suicide ideation, homicidal ideation, and hallucinations, Allergy/Immunology: Negative for hives, rash, and allergies, Endocrine: Negative for neck swelling, polydipsia, polyuria, polyphagia, and marked weight changes, Hematologic/Lymphatic: Negative for swollen nodes, abnormal bleeding, and unusual bruising. 20:20 Abdomen/GI: Positive for abdominal pain. Exam: 20:20 Constitutional: This is a well developed, well nourished patient who is awake, alert, heaven and in no acute distress. Head/Face: Normocephalic, atraumatic. Eyes: Pupils equal round and reactive to light, extra-ocular motions intact. Lids and lashes normal. Conjunctiva and sclera are non-icteric and not injected. Cornea within normal limits. Periorbital areas with no swelling, redness, or edema. ENT: Nares patent. No nasal discharge, no septal abnormalities noted. Tympanic membranes are normal and external auditory canals are clear. Oropharynx with no redness, swelling, or masses, exudates, or evidence of obstruction, uvula midline. Mucous membranes moist. Neck: Trachea midline, no thyromegaly or masses palpated, and no cervical lymphadenopathy. Supple, full range of motion without nuchal rigidity, or vertebral point tenderness. No Meningismus. Chest/axilla: Normal chest wall appearance and motion. Nontender with no deformity. No lesions are appreciated. Cardiovascular: Regular rate and rhythm with a normal S1 and S2. No gallops, murmurs, or rubs. Normal PMI, no JVD. No pulse deficits. Respiratory: Lungs have equal breath sounds bilaterally, clear to auscultation and percussion. No rales, rhonchi or wheezes noted. No increased work of breathing, no retractions or nasal flaring. Back: No spinal tenderness. No costovertebral tenderness. Full range of motion. Female : Normal external genitalia. Skin: Warm, dry with normal turgor. Normal color with no rashes, no lesions, and no evidence of cellulitis. MS/ Extremity: Pulses equal, no cyanosis. Neurovascular intact. Full, normal range of motion. Neuro: Awake and alert, GCS 15, oriented to person, place, time, and situation. Cranial nerves II-XII grossly intact. Motor strength 5/5 in all extremities. Sensory grossly intact. Cerebellar exam normal. Normal gait. Psych: Awake, alert, with orientation to person, place and time. Behavior, mood, and affect are within normal limits. 20:20 Abdomen/GI: Inspection: abdomen appears normal, Bowel sounds: normal, Palpation: moderate abdominal tenderness, in the posterior aspect of left lateral abdomen, anterior aspect of left lateral abdomen, left upper quadrant and left lower quadrant, Liver: no appreciated palpable abnormalities, Hernia: not appreciated. Vital Signs: 17:36 BP 136 / 69; Pulse 83; Resp 17; Temp 98.8; Pulse Ox 97% ; Weight 79.38 kg; Height 5 ft. ap3 5 in. (165.10 cm); 17:36 Body Mass Index 29.12 (79.38 kg, 165.10 cm) ap3 Pauline Coma Score: 17:44 Eye Response: spontaneous(4). Verbal Response: oriented(5). Motor Response: obeys ap3 commands(6). Total: 15. Trauma Score (Adult): 17:44 Eye Response: spontaneous(1); Verbal Response: oriented(1); Motor Response: obeys ap3 commands(2); Systolic BP: > 89 mm Hg(4); Respiratory Rate: 10 to 29 per min(4); Apuline Score: 15; Trauma Score: 12 MDM: 20:01 Patient medically screened. heaven 20:22 Differential diagnosis: contusion, fracture, multiple trauma, sprain, strain. heaven Differential diagnosis: non-specific abd pain, Blunt Chest Trauma Chest Wall Contusion Chest Wall Injury. Data reviewed: vital signs, nurses notes. Data interpreted: child monitor: rate is 83 beats/min, rhythm is regular, Pulse oximetry: on room air is 97 %. Test interpretation: by ED physician or midlevel provider: ECG, plain radiologic studies. Counseling: I had a detailed discussion with the patient and/or guardian regarding: the historical points, exam findings, and any diagnostic results supporting the discharge/admit diagnosis, lab results, radiology results. 10/26 17:42 Order name: Basic Metabolic Panel; Complete Time: 20:16 cp 10/26 17:42 Order name: CBC with Diff cp 10/26 17:42 Order name: Type And Screen; Complete Time: 20:16 10/26 17:43 Order name: PT-INR; Complete Time: 20:16 cp 10/26 17:43 Order name: Ptt, Activated; Complete Time: 20:16 10/26 21:03 Order name: CBC Smear Scan EDVT 10/26 17:42 Order name: CT Traumagram (Head C Spine CAP W Con); Complete Time: 20:16 10/26 17:43 Order name: Labs collected and sent; Complete Time: 18:01 10/26 17:43 Order name: XRAY Chest (1 view); Complete Time: 20:16 10/26 20:23 Order name: INCENTIVE SPIROMETRY heaven Administered Medications: 21:21 CANCELLED (Patient Refused): HYDROcodone-acetaminophen 5 mg-325 mg 1 tabs PO once bb 21:30 Drug: HYDROcodone-acetaminophen 5 mg-325 mg 1 tabs Route: PO; bb 21:50 Follow up: Response: Medication administered at discharge. bb Disposition Summary: 10/26/21 20:24 Discharge Ordered Location: Home heaven Problem: new heaven Symptoms: have improved heaven Condition: Stable heaven Diagnosis - Contusion of back wall of thorax heaven - Contusion of front wall of thorax heaven - Contusion of abdominal wall heaven - Fall on same level, unspecified heaven Followup: heaven - With: Private Physician - When: 2 - 3 days - Reason: Recheck today's complaints, Continuance of care, Re-evaluation by your physician Discharge Instructions: - Discharge Summary Sheet heavne - Fall Prevention in the Home, Adult heaven - How to Use an Incentive Spirometer heaven - Fall Prevention in the Home, Adult, [id number] heaven - Form - Incentive Spirometer Record [facility] Forms: - Medication Reconciliation Form heaven - Thank You Letter heaven - Antibiotic Education heaven - Prescription Opioid Use [facility] Prescriptions: - Zofran 4 mg Oral Tablet - take 1 tablet by ORAL route every 12 hours As needed; 20 tablet; Refills: 0, heaven Product Selection Permitted - Tylenol-Codeine #3 300 mg-30 mg Oral - take 2 tablet by ORAL route every 6 hours; 20 tablet; Refills: 0, Product heaven Selection Permitted Signatures: Dispatcher [employer] EDAngel Gamino MD MD cha Ballard, Brenda, RN RN bb Angel Guzman PA PA cp Prokisch, Amanda RN RN ap3 Juancarlos Coreas RN RN ke1 Corrections: (The following items were deleted from the chart) 21:21 20:23 HYDROcodone-acetaminophen 5 mg-325 mg 1 tabs PO once ordered. heaven galarza
[2021-10-26 21:02] LABS: Anisocytosis 1+; Blood Morphology Comment NOTED (NOT SEEN); Platelet Estimate ADEQ; Poikilocytosis 1+; White Blood Cell Scan OK (OK)
[2021-10-26] MEDS ORDERED: HYDROCODONE/APAP 5/325 MG TAB ONE (21:32)
[2021-10-26 22:28] VITALS: BP 136/69; TEMP 98.8; O2SAT 97
== END 2021-10-26 21:50 | disposition home or self-care (01) ==
LOC: ER 17:09
DX: S20.219A Contusion of unspecified front wall of thorax, initial encounter (principal); S20.229A Contusion of unspecified back wall of thorax, initial encounter; S30.1XXA Contusion of abdominal wall, initial encounter; W18.30XA Fall on same level, unspecified, initial encounter; Z95.818 Presence of other cardiac implants and grafts; E11.9 Type 2 diabetes mellitus without complications; I10 Essential (primary) hypertension; Z88.1 Allergy status to other antibiotic agents; Z88.2 Allergy status to sulfonamides; Z88.7 Allergy status to serum and vaccine; Z88.8 Allergy status to other drugs, medicaments and biological substances
CPT/HCPCS: 85025; 80048; 36415; 86900; 86850; 85610; 86901; 85730; 70450; 72125; 71260; 74177; 71045; 99284; Q9967

== ENCOUNTER 2022-01-28 10:35 | Emergency (ER) | payer OTHER ==
--- OUTSIDE RECORDS SUMMARY | 2022-01-28 10:38 | XMS REPORT | Continuity of Care Document ---
:1935 Author Organization [facility] t Address [address] [place] [address] Care Team Providers Name Role Phone ANEUDY MATTHEW VALADEZH Primary Care Physician Unavailable Julisa Patel Attending Clinician Unavailable Payers Payer Name Policy [...] [facility] atorvast DA [facility] Clear calcium 00:00: Stephen 00 [facility] rosuvast DA Active [facility] Clear calcium 00:00: Stephen 00 [facility] Sulfa DA Active [facility] (Sulfona 6-29 Clear mide 00:00: Stephen Antibiot 00 [facility] cefaclor DA Active U [facility] - Clear 00:00: Stephen 00 [facility] alendron DA Active U [facility] ate 10-14 Clear sodium 00:00: Stephen [facility] Medications This patient has no known medications. Procedures This patient has no known procedures. Encounters Start End Encounter Admission Attending Care Care Encounter Source Date/Time Date/Time Type Type Clinicians Facility Department ID 2021-05-13 [id number] Common 14:36:45 Julisa Reid [facility] 2021-05-[address] [facility] [id number] Common 12:49:54 Julisa Hammond9 [facility] 2021-05-[address] [facility] [id number] Common 12:49:17 Julisa Cassidy [facility] 2019-01-11 2019-01-11 Outpatient [facility] [id number] [facility] 09:10:00 09:10:00 Results This patient has no known results.
[2022-01-28 10:56] LABS: Urine Blood Negative (Negative); Urine Glucose Negative (Negative); Urine Protein Negative (Negative); Urine Specific Gravity 1.015 (1.005-1.030)
[2022-01-28 11:32] LABS: Absolute Lymphocytes (CBC) 1.4 K/uL (0.7-4.9); Hematocrit 33.2 % (36.0-45.0); Lymphocytes % 18.6 % (15.3-44.8); MCV 94.8 fL (80-100); MPV 11.9 fL (7.6-11.3)
[2022-01-28 11:34] LABS: Albumin 3.2 g/dL (3.4-5.0); Bilirubin Total 0.4 mg/dL (0.2-1.0); Potassium 4.4 mmol/L (3.5-5.1); Protein, Total 6.7 g/dL (6.4-8.2)
--- NOTE | 2022-01-28 12:28 | RAD REPORT ---
EXAM DESCRIPTION: CT - Abdomen Pelvis W Contrast - 01/28/2022 12:08 pm CLINICAL HISTORY: Abdominal pain COMPARISON: 2019 TECHNIQUE: Computed axial tomography of the abdomen pelvis was obtained. 100 cc Isovue-300 was admin istered intravenously. Oral contrast was not requested which limits evaluation of bowel and appendix All CT scans are performed using dose optimization technique as appropriate and may include automated exposure control or mA/KV adjustment according to patient size. FINDINGS: Liver, adrenals and left kidney unremarkable. Right renal cortical thinning. Small splenic cyst. Pancreas is atrophic. Small hiatal hernia. Small gallstones. 5 millimeter polyp. Mild thickening of the wall of the fundus unchanged from prior exam Diverticula stem from the colon. Mild to moderate stranding adjacent to the sigmoid colon with small amount of free fluid. No free air. No abscess This probably represents a diverticulitis. IMPRESSION: [id number] sigmoid diverticulitis Cholelithiasis without evidence of cholecystitis 5 millimeter gallbladder polyp. Follow-up ultrasound in 1 year recommended to assess stability
--- NOTE | 2022-01-28 12:29 | RAD REPORT ---
EXAM DESCRIPTION: Waldemar Single View01/28/2022 12:23 pm CLINICAL HISTORY: sob COMPARISON: October 2021 FINDINGS: The lungs appear clear of acute infiltrate. The heart is normal size IMPRESSION: No acute abnormalities displayed
[2022-01-28] MEDS ORDERED: CEFTRIAXONE 1000 MG/VIAL ONE (12:50)
[2022-01-28] MEDS ORDERED: METRONIDAZOLE 500mg IVPB 500 MG/100 ML BAG IV ONE (12:50)
--- NOTE | 2022-01-28 13:51 | ER ---
Nurse's Notes [facility] Name: Jeannette Thomas Age: 86 yrs Sex: Female : 1935 Arrival Date: 01/28/2022 Time: 10:39 Bed 20 Private MD: Diagnosis: Diverticulitis of large intestine without perforation or abscess without bleeding Presentation: 01/28 10:45 Chief complaint: Patient states: lower abdominal pain. Coronavirus screen: Vaccine mb8 status: Patient reports receiving the 2nd dose of the covid vaccine. Ebola Screen: Patient negative for fever greater than or equal to 101.5 degrees Fahrenheit, and additional compatible Ebola Virus Disease symptoms Patient denies exposure to infectious person. Patient denies travel to an Ebola-affected area in the 21 days before illness onset. Initial Sepsis Screen: Does the patient meet any 2 criteria? No. Patient's initial sepsis screen is negative. Does the patient have a suspected source of infection? No. Patient's initial sepsis screen is negative. Risk Assessment: Do you want to hurt yourself or someone else? Patient reports no desire to harm self or others. 10:45 Acuity: OSVALDO 3 mb8 11:10 Method Of Arrival: Ambulatory mb8 Triage Assessment: 11:12 General: Appears in no apparent distress. Behavior is calm, cooperative, appropriate mb8 for age. Pain: Complains of pain in abdomen. Respiratory: Reports shortness of breath. Historical: - Allergies: 11:11 Ciprofloxacin; mb8 11:11 Crestor; mb8 11:11 FLU VACCINE; mb8 11:11 Fosamax; mb8 11:11 Januvia; mb8 11:11 Minocycline; mb8 11:11 pneumonia vaccine; mb8 11:11 Sulfa (Sulfonamide Antibiotics); mb8 11:11 Victoza 2-Denny; mb8 12:01 Bactrim; mb8 - PMHx: 11:11 Anemia; Colitis; colonoscopy; Diabetes - IDDM; Diverticulitis; epidural steroid mb8 injections; Gastric Reflux; hiatal hernia; Hyperlipidemia; Hypertension; irregular heart beat; PE; peptic ulcer; PUD; TIA; - PSHx: 11:11 cystocyle; heart stent; hernia; parathyroid; Total abdominal hysterectomy; mb8 - Social history:: Smoking status: Patient denies any tobacco usage or history of. - Family history:: not pertinent. - Hospitalizations: : No recent hospitalization is reported. Screenin:13 Abuse screen: Denies threats or abuse. Denies injuries from another. Nutritional mb8 screening: No deficits noted. Tuberculosis screening: No symptoms or risk factors identified. Fall Risk None identified. Assessment: 10:45 Respiratory: Airway is patent Respiratory effort is even, unlabored, Breath sounds are mb8 clear. GI: Abdomen is flat, non-distended, Bowel sounds present X 4 quads. Abd is soft and non tender Reports lower abdominal pain, Patient currently denies bloody stool, diarrhea, nausea, vomiting. Vital Signs: 10:45 BP 148 / 72; Pulse 88; Resp 16; Temp 97.4; Pulse Ox 99% on R/A; mb8 ED Course: 10:39 Patient arrived in ED. rg4 10:41 Ayo Olivas MD is Attending Physician. rn 10:45 Parag Huitron RN is Primary Nurse. mb8 10:45 Arm band placed on. Patient has correct armband on for positive identification. Placed mb8 in gown. Bed in low position. Call light in reach. Side rails up X2. Client placed on continuous cardiac and pulse oximetry monitoring. NIBP monitoring applied. 11:00 No provider procedures requiring assistance completed. Inserted saline lock: 20 gauge mb8 in left antecubital area, using aseptic technique. Blood collected. 11:11 Triage completed. mb8 11:14 Flu Sent. mb8 11:14 SARS-COV-2 RT PCR (Document "Date of Onset" if Symptomatic) Sent. mb8 12:28 XRAY Chest (1 view) Sent. mb8 13:50 Ceferino Oliveira MD is Referral Physician. rn 14:23 IV discontinued, intact, bleeding controlled, No redness/swelling at site. Pressure mb8 dressing applied. Administered Medications: 12:57 Drug: Rocephin (cefTRIAXone) 1 grams Route: IV; Rate: calculated rate; Site: left mb8 antecubital; 13:03 Follow up: Response: No adverse reaction mb8 13:03 Follow up: IV Status: Completed infusion mb8 12:57 Drug: Flagyl (metroNIDAZOLE) 500 mg Volume: 100 ml; Route: IVPB; Rate: 200 ml/hr; mb8 Infused Over: 30 mins; Site: left antecubital; 14:20 Follow up: IV Status: Completed infusion mb8 Medication: 11:13 VIS not applicable for this client. mb8 Outcome: 13:50 Discharge ordered by . rn 14:23 Discharged to home ambulatory. mb8 14:23 Condition: stable 14:23 Discharge instructions given to patient, Instructed on discharge instructions, follow up and referral plans. no drinking with medication, no driving heavy equipment, medication usage, Demonstrated understanding of instructions, follow-up care, medications, Prescriptions given X 4. 14:24 Patient left the ED. mb8 Signatures: Ayo Olivas MD MD rn Garcia, Rubi rg4 Parag Huitron RN RN marlena Corrections: (The following items were deleted from the chart) 11:14 11:12 Arm band placed on mb8 mb8 11:14 11:13 Patient has correct armband on for positive identification. Placed in gown. Bed mb8 in low position. Call light in reach. Side rails up X2. mb8 11:14 11:13 Client placed on continuous cardiac and pulse oximetry monitoring. NIBP mb8 monitoring applied. mb8 11:15 11:14 To radiology for Abdomen Pelvis W Con+CT.RAD.BRZ. mb8 EDMS
--- NOTE | 2022-01-28 13:51 | EDPHYS ---
Physician Documentation [facility] Name: Jeannette Thomas Age: 86 yrs Sex: Female : 1935 Arrival Date: 01/28/2022 Time: 10:39 Bed 20 Private MD: ED Physician Ayo Olivas HPI: 01/28 11:25 This 86 yrs old Female presents to ER via Ambulatory with complaints of abd pain. rn 11:25 The patient presents with abdominal pain that is diffuse. Onset: The symptoms/episode rn began/occurred 2 day(s) ago. The symptoms do not radiate. Associated signs and symptoms: Pertinent negatives: nausea and vomiting, blood in stools, constipation, fever. The symptoms are described as crampy. Modifying factors: The symptoms are alleviated by nothing, the symptoms are aggravated by nothing. Severity of pain: At its worst the pain was mild in the emergency department the pain is unchanged. The patient has not experienced similar symptoms in the past. The patient has not recently seen a physician. Pt reports abd pain, sharp, for 2 days, assoc with low grade fever, 99.6. No vomiting/diarrhea. No constipation. . Historical: - Allergies: 11:11 Ciprofloxacin; mb8 11:11 Crestor; mb8 11:11 FLU VACCINE; mb8 11:11 Fosamax; mb8 11:11 Januvia; mb8 11:11 Minocycline; mb8 11:11 pneumonia vaccine; mb8 11:11 Sulfa (Sulfonamide Antibiotics); mb8 11:11 Victoza 2-Denny; mb8 12:01 Bactrim; mb8 - PMHx: 11:11 Anemia; Colitis; colonoscopy; Diabetes - IDDM; Diverticulitis; epidural steroid mb8 injections; Gastric Reflux; hiatal hernia; Hyperlipidemia; Hypertension; irregular heart beat; PE; peptic ulcer; PUD; TIA; - PSHx: 11:11 cystocyle; heart stent; hernia; parathyroid; Total abdominal hysterectomy; mb8 - Social history:: Smoking status: Patient denies any tobacco usage or history of. - Family history:: not pertinent. - Hospitalizations: : No recent hospitalization is reported. ROS: 11:27 Constitutional: Negative for fever, chills, and weight loss, Eyes: Negative for injury, rn pain, redness, and discharge, Neck: Negative for injury, pain, and swelling, Cardiovascular: Negative for chest pain, palpitations, and edema, Respiratory: Negative for cough, wheezing, and pleuritic chest pain, Abdomen/GI: Negative for nausea, vomiting, diarrhea, and constipation, Back: Negative for injury and pain, MS/Extremity: Negative for injury and deformity, Skin: Negative for injury, rash, and discoloration, Neuro: Negative for headache, weakness, numbness, tingling, and seizure. Exam: 11:27 Constitutional: This is a well developed, well nourished patient who is awake, alert, rn and in no acute distress. Head/Face: Normocephalic, atraumatic. Cardiovascular: Regular rate and rhythm. No pulse deficits. Respiratory: No increased work of breathing, no retractions or nasal flaring. Abdomen/GI: Soft, + mild abd tenderness, no rebound, no masses, non-distended Skin: Warm, dry MS/ Extremity: Pulses equal, no cyanosis. Neuro: Awake and alert, GCS 15 Vital Signs: 10:45 BP 148 / 72; Pulse 88; Resp 16; Temp 97.4; Pulse Ox 99% on R/A; mb8 MDM: 10:41 Patient medically screened. rn 13:08 Differential diagnosis: appendicitis, bowel obstruction, diverticulitis, gastritis, rn non-specific abd pain, Ureterolithiasis, urinary tract infection. Data reviewed: vital signs, nurses notes, lab test result(s), radiologic studies, CT scan, and as a result, I will discharge patient. Counseling: I had a detailed discussion with the patient and/or guardian regarding: the historical points, exam findings, and any diagnostic results supporting the discharge/admit diagnosis, lab results, radiology results, the need for outpatient follow up, to return to the emergency department if symptoms worsen or persist or if there are any questions or concerns that arise at home. Response to treatment: the patient's symptoms have mildly improved after treatment, and as a result, I will discharge patient. Special discussion: Based on the patient's Hx, exam, and Dx evaluation, there is no indication for emergent surgery or inpatient Tx. It is understood by the patient/guardian that if the Sx's persist or worsen they need to return immediately for re-evaluation. Based on the history and exam findings, there is no indication for further emergent testing or inpatient evaluation. I discussed with the patient/guardian the need to see the primary care provider for further evaluation of the symptoms. ED course: Pt with mild to moderate diverticulitis, offered observation, patient concerned that insurance may not cover her observation, chooses to go home and states will return if worsens. . 13:28 ED course: Offered patient pain medication, declines because she is driving herself rn home.. 13:49 ED course: SPoke with Dr. Estevez, who is happy to admit patient, patient still concerned rn about out of pocket costs to her and again wants to go home instead of admit. Understands risks involved. Will dc home with return precautions, pain meds, nausea medication, and abx. . 01/28 10:56 Order name: Urine Dipstick-Ancillary; Complete Time: 12:44 EDMS 01/28 10:59 Order name: CBC with Diff rn 01/28 10:59 Order name: CMP rn 01/28 10:59 Order name: Lipase rn 01/28 10:59 Order name: SARS-COV-2 RT PCR (Document "Date of Onset" if Symptomatic) rn 01/28 10:59 Order name: Flu rn 01/28 11:27 Order name: XRAY Chest (1 view) rn 01/28 11:34 Order name: Comprehensive Metabolic Panel; Complete Time: 12:44 EDMS 01/28 11:34 Order name: Lipase; Complete Time: 12:44 EDMS 01/28 11:38 Order name: Influenza Screen (A ; Complete Time: 12:44 EDMS 01/28 11:56 Order name: CBC with Automated Diff; Complete Time: 12:44 EDMS 01/28 11:57 Order name: SARS-COV-2 RT PCR; Complete Time: 12:44 EDMS 01/28 12:29 Order name: CT; Complete Time: 12:44 EDMS 01/28 10:59 Order name: IV Saline Lock; Complete Time: 11:14 rn 01/28 10:59 Order name: Labs collected and sent; Complete Time: 11:14 rn 01/28 12:30 Order name: RAD; Complete Time: 12:44 EDMS Administered Medications: 12:57 Drug: Rocephin (cefTRIAXone) 1 grams Route: IV; Rate: calculated rate; Site: left mb8 antecubital; 13:03 Follow up: Response: No adverse reaction mb8 13:03 Follow up: IV Status: Completed infusion mb8 12:57 Drug: Flagyl (metroNIDAZOLE) 500 mg Volume: 100 ml; Route: IVPB; Rate: 200 ml/hr; mb8 Infused Over: 30 mins; Site: left antecubital; 14:20 Follow up: IV Status: Completed infusion mb8 Disposition Summary: 01/28/22 13:50 Discharge Ordered Location: Home rn Problem: new rn Symptoms: have improved rn Condition: Stable rn Diagnosis - Diverticulitis of large intestine without perforation or abscess without bleeding rn Followup: rn - With: Ceferino Oliveira MD - When: 2 - 3 days - Reason: Recheck today's complaints, Re-evaluation by your physician Discharge Instructions: - Discharge Summary Sheet rn - Diverticulitis rn Forms: - Medication Reconciliation Form rn - Thank You Letter rn - Antibiotic horn player - Prescription Opioid Use rn Prescriptions: - ondansetron 4 mg Oral tablet,disintegrating - place 1 tablet by TRANSLINGUAL route every 8-10 hours As needed For nausea; 15 rn tablet; Refills: 0, Product Selection Permitted - Flagyl 500 mg Oral Tablet - take 1 tablet by ORAL route every 8 hours for 10 days; 30 tablet; Refills: 0, rn Product Selection Permitted - cefpodoxime 100 mg Oral Tablet - take 2 tablets by ORAL route every 12 hours for 10 days take with food; 40 rn tablet; Refills: 0, Product Selection Permitted - Tylenol-Codeine #3 300 mg-30 mg Oral - take 1 tablet by ORAL route every 6-8 hours; 12 tablet; Refills: 0, Product rn Selection Permitted Signatures: Dispatcher [employer] Ayo Zheng MD MD rn Bates, Michael, RN RN mb8 Corrections: (The following items were deleted from the chart) 11:15 11:04 Abdomen Pelvis W Con+CT.RAD.BRZ ordered. ALO PRAJAPATI
[2022-01-28 14:37] VITALS: BP 148/72; TEMP 97.4; O2SAT 99
== END 2022-01-28 14:24 | disposition home or self-care (01) ==
LOC: ER 10:35
DX: K57.32 Diverticulitis of large intestine without perforation or abscess without bleeding (principal); K21.9 Gastro-esophageal reflux disease without esophagitis; K44.9 Diaphragmatic hernia without obstruction or gangrene; I10 Essential (primary) hypertension; E11.9 Type 2 diabetes mellitus without complications; D64.9 Anemia, unspecified; E78.5 Hyperlipidemia, unspecified; Z20.822 Contact with and (suspected) exposure to COVID-19; Z88.0 Allergy status to penicillin; Z88.2 Allergy status to sulfonamides; Z88.3 Allergy status to other anti-infective agents; Z88.7 Allergy status to serum and vaccine; Z88.8 Allergy status to other drugs, medicaments and biological substances; Z87.11 Personal history of peptic ulcer disease; Z87.19 Personal history of other diseases of the digestive system; Z86.73 Personal history of transient ischemic attack (TIA), and cerebral infarction without residual deficits; Z86.711 Personal history of pulmonary embolism; Z95.5 Presence of coronary angioplasty implant and graft; Z90.710 Acquired absence of both cervix and uterus
CPT/HCPCS: 96365; 85025; 36415; 81003; 83690; 80053; 87804 ×2; 74177; 71045; 96375; 99284; U0003

== ENCOUNTER 2022-07-06 08:55 | Emergency (ER) | payer OTHER ==
--- OUTSIDE RECORDS SUMMARY | 2022-07-06 08:59 | XMS REPORT | Continuity of Care Document ---
:1935 Author Organization [facility] t Address [address] [place] [address] Care Team Providers Name Role Phone MATTHEW AMADOH Primary Care Physician Unavailable Julisa Patel Attending Clinician Unavailable Payers Payer Name Policy Type Policy Number Effective Date Expiration Date S ource Problems Condition Condition Condition Status Onset Resolution Last Treating Co mments Source Name Details Category Date Date Treatment Clinician Date Abdominal Abdominal Disease Active [facility] acute 00:[facility]: Medical 00 [place] Sepsis Sepsis Disease Active [facility] 00 [place] Lower Lower Disease Active Overview: [facility] urinary urinary 11-19 [facility] tract tract 00:00: g of this Medical infectious infectious 00 note Ce nter disease disease might be different from the original. 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 00:00: Medical 00 Center Hypertensi Hypertensi Disease Active [facility] 11[facility]19 [facility] Hyperlipid Hyperlipid Disease Active [facility] emia emia 11-19 [facility] 00:[facility] 00 [facility] Acute Acute Disease Active [facility] kidney kidney 11-19 [facility] injury injury 00:00: Medical 00 Center Allergies, Adverse Reactions, Alerts Allergy Allergy Status Severity Reaction(s) Onset Inactive Treating Comm ents Source Name Type Date Date Clinician IBANDRON Allergy Active Other [facility] ATE 10-19 [facility] 00:00: Medical 00 [place] CEFACLOR Allergy Active Nausea [facility] 10[facility] ROSUVAST Allergy Active Other [facility] ATIN 10-19 [facility] 00:00: Medical 00 [place] ALENDRON Allergy Active Other [facility] 10-19 [facility] 00:00: Medical 00 [place] ATORVAST Allergy Active Other [facility] ATIN 10-19 [facility] 00:[facility]: Medical 00 Center SULFA Allergy Active Other [facility] (SULFONA 10-19 [facility] MIDE 00:00: Medical ANTIBIOT 00 Center ICS) Ibandron Drug Active Other (See Body and [facility] ate Allergy Comments) 10-19 muscle [facility] 00:00: aches Medical 00 [place] Cefaclor Drug Active Nausea Only [facility] Allergy 10-19 [facility] 00:00: Medical 00 Center Rosuvast Drug Active Other (See Body and [facility] atin Allergy Comments) 10-19 muscle [facility] 00:00: aches Medical 00 [place]al Alendron Drug Active Other (See Body and [facility] ate Allergy Comments) 10-19 muscle [facility] 00:00: aches Medical 00 [place] Atorvast Drug Active Other (See Body and [facility] atin Allergy Comments) 10-19 muscle [facility] 00:00: aches Medical 00 [place] Sulfa Drug Active Other (See Body and [facility] (Sulfona Allergy Comments) 10-19 muscle Luke s mide 00:00: ache Medical Antibiot 00 Center ics) alendron DA Active [facility] ate 6- Clear sodium 00:00: Stephen 00 [facility] atorvast DA Active [facility] atin 6-29 Clear calcium 00:00: Stephen [facility] rosuvast DA Active [facility] atin 6-29 Clear calcium 00:00: Stephen [facility] Sulfa DA Active [facility] (Sulfona 6-29 Clear mide 00:00: Stephen Antibiot [address] [facility] cefaclor DA Active U [facility] 6 Clear 00:00: Stephen 00 [facility] Social History Social Habit Start Date Stop Date Quantity Comments Source Alcohol intake 2014-05-25 2014-05-[address] [facility] 00:00:00 00:00:00 non-drinker of Medical Ce nter alcohol (finding) Sex Assigned At [address] [facility] kemargarita 00:00:00 [facility]:00 [facility] Center Smoking Status Start Date Stop Date Source Never smoked tobacco [facility] Medications Ordered Filled Start Stop Current Ordering Indication Dosage Frequency Signature Comments Components Source Medication Medication Date Date Medication? Clinician (SIG) Name Name glipiZIDE Yes 10mg Take [address] (GLUCOTROL) 2-08 by mouth 2 Vicki kes 10 MG 15:26: (two) Medical tablet 36 times Center daily before meals. lisinopril Yes 5mg QD Take [address] (PRINIVIL,Z 2-08 by mouth Luke s ESTRIL) 5 15:26: daily. Medica l MG tablet 36 [place] metoprolol Yes 50mg QD Take [address] (TOPROL-XL) 2-08 by mouth Luke s 50 MG 24 hr 15:26: daily. Medi eloise tablet 36 [place] aspirin 81 Yes 81mg QD Take [address] MG chewable 2-08 by mouth Luke s tablet 15:26: daily. Medical 36 [place] folic acid Yes 400ug QD Take [address] (FOLVITE) 2-08 mcg by [facility] 400 MCG 15:26: mouth Medical tablet 36 daily. [facility] hydrochloro Yes 12.5mg QD Take 12.[address] [address] thiazide 2-08 mg by [facility] (HYDRODIURI 15:26: mouth Medic al L) 12.5 MG 36 daily. Center tablet metFORMIN Yes 1000mg Q.5D Take 1,[address] (GLUMETZA) 2-08 mg by [facility] 1000 MG 15:26: mouth 2 Medical (MOD) 24 hr 36 (two) Center tablet times daily. sitaGLIPtin Yes 100mg QD Take [address] (JANUVIA) 2-08 mg by [facility] 100 MG 15:26: mouth Medical tablet 36 daily. Rydal MAG Yes 15mL Take [address] HYDROX/AL 2-08 mLs by Autumn DE [place] 00:00: mouth Medic al TH (GI 00 every 6 Center COCKTAIL (six) COMPOUNDED) hours as solution needed (dyspepsia /heart burn). Procedures This patient has no known procedures. Encounters Start End Encounter Admission Attending Care Care Encounter Source Date/Time Date/Time Type Type Clinicians Facility Department ID 2021-05-13 Outpatient Jorge [facility] [id number] Common 14:36:45 Julisa [facility] [facility] 2021-05-13 Outpatient [facility] [id number] Common 12:49:54 Julisa [id number] 2021-05-13 Outpatient [facility] [id number] Common 12:49:17 Julisa [id number] 2019-01-11 2019-01-11 Outpatient [facility] 09:10:00 09:10:00 Results This patient has no known results.
[2022-07-06 09:48] LABS: Specific Gravity 1.005 (1.005-1.030); Urine Bilirubin NEGATIVE (Negative); Urine Blood Negative (Negative); Urine Clarity Clear (Clear); Urine Color Colorless (Yellow); Urine Glucose NEGATIVE (Negative); Urine Protein NEGATIVE (Negative); Urine Urobilinogen Normal (Normal)
[2022-07-06] MEDS ORDERED: ONDANSETRON 4 MG/2 ML VIAL ONE (10:03)
[2022-07-06] MEDS ORDERED: FAMOTIDINE 20 MG/2 ML VIAL IV ONE (10:03)
[2022-07-06] MEDS ORDERED: NA CHLORIDE 0.9% 1,000 ML ONE (10:03)
[2022-07-06] MEDS ORDERED: FENTANYL CITR 100 MCG/2 ML ONE (10:03)
[2022-07-06 10:53] LABS: Absolute Lymphocytes (CBC) 1.1 K/uL (0.7-4.9); Hematocrit 32.4 % (36.0-45.0); Lymphocytes % 23.8 % (15.3-44.8); MCV 96.9 fL (80-100); MPV 12.1 fL (7.6-11.3); RBC Red Blood Cell Count 3.35 M/uL (3.86-4.86)
[2022-07-06 11:13] LABS: Protime INR 1.01
--- NOTE | 2022-07-06 11:23 | RAD REPORT ---
EXAM DESCRIPTION: US - Abdomen Exam Limited - 07/06/2022 10:13 am CLINICAL HISTORY: ABD PAIN COMPARISON: Abdomen Pelvis W Contrast dated 01/28/2022 TECHNIQUE: Sonographic grayscale and color flow images of the right upper quadrant were obtained. FINDINGS: The gallbladder demonstrates few small layering shadowing gallstones near the fundus. Non mobile 6 millimeter isoechoic lesion arising from the anti dependent gallbladder wall, suggestive of a small polyp. No pericholecystic fluid or gallbladder wall thickening. The common bile duct is paola l measuring 4 mm. The liver demonstrates no findings of intrahepatic biliary dilatation. IMPRESSION: Small gallstones and a small gallbladder polyp. No findings to suggest acute cholecystit is on ultrasound.
--- NOTE | 2022-07-06 11:26 | RAD REPORT ---
[facility] CLINICAL HISTORY: Chest pain;Rib Pain - Right COMPARISON: Chest Single View dated 01/28/2022; Chest Single View dated 10/26/2021; Chest Single View dated 10/22/2021; Chest Single View dated 08/21/2021 TECHNIQUE: Portable AP view of the chest. FINDINGS: The lungs are clear.Stable mild right basal atelectasis and probable prominence of the epi cardial fat. No pneumothorax or effusion. The cardiomediastinal contours are unremarkable. IMPRESSION: No acute cardiopulmonary process.
[2022-07-06 11:33] LABS: Potassium 3.7 mEq/L (3.5-5.1)
[2022-07-06 11:34] LABS: Albumin 3.2 g/dL (3.4-5.0); Bilirubin Direct 0.1 mg/dL (0-0.2); Bilirubin Total 0.4 mg/dL (0.2-1.0); Magnesium 1.8; Protein, Total 5.9 g/dL (6.4-8.2); Troponin High Sensitivity 6.7 (<58.9)
[2022-07-06 12:26] LABS: Anisocytosis 1+; Blood Morphology Comment NOTED (NOT SEEN); Ovalocytes SLIGHT; Platelet Estimate ADEQ; Poikilocytosis SLIGHT; White Blood Cell Scan OK (OK)
--- NOTE | 2022-07-06 12:35 | RAD REPORT ---
EXAM DESCRIPTION: CT - Angio Aorta For Dissection - 07/06/2022 11:56 am CLINICAL HISTORY: Abd pain;Dissection;Pain COMPARISON: Abdomen Pelvis W Contrast dated 01/28/2022; Chest Single View dated 07/06/2022 TECHNIQUE: Dynamically enhanced 3 mm thick images of the chest, abdomen, and upper pelvis were obtai karlos during administration of approximately 95mL Isovue 370 IV contrast. Sagittal and coronal reconstr uctions as well as maximal intensity projection reconstruction were generated and reviewed per an [facility] tic angiography protocol. All CT scans are performed using dose optimization technique as appropriate and may include automated exposure control or mA/KV adjustment according to patient size. FINDINGS: Aorta is normal in diameter with no dissection or other acute aortic findings. Reconstruct ion images show no significant findings. Pulmonary arteries are normal as well. No mass or infiltrate in the lung parenchyma. No pleural thickening or pneumothorax. Small layering b ilateral pleural effusions. No abnormal mediastinal or hilar mass or lymphadenopathy seen. No chest wall mass or abnormal axillar y lymphadenopathy. Celiac, SMA and renal arteries show no suspicious findings. Rounded anterior splenic marginally enhan cing 3.9 centimeter lesion, stable since January 2022, and could represent a small hemangioma. Other small subcapsular cysts of the spleen, stable. Solid abdominal viscera and bowel show no other signif icant findings. Incidental findings including colonic diverticulosis and a fat containing small left inguinal hernia. Multifocal scarring along the left renal cortex, stable. Small cortical renal hypoat tenuating lesions bilaterally, stable, and suggestive of small cysts, too small to characterize. Few small layering gallstones as well as a mildly hyperdense lesion at the fundus anteriorly, could repre sent a noncalcified stone versus polyp. This is also stable No mass or abnormal lymphadenopathy. IMPRESSION: No acute abnormalities on CT angiogram of the aorta. Trace bilateral layering pleural effusions. Other incidental findings including a stable marginally enhancing 3.9 centimeter splenic lesion which could represent a hemangioma. Overall no significant change since January 2022.
--- NOTE | 2022-07-06 13:04 | ER ---
Nurse's Notes [facility] Name: Jeannette Thomas Age: 87 yrs Sex: Female : 1935 Arrival Date: 07/06/2022 Time: 08:58 Bed 15 Private MD: Diagnosis: Pleural condition, unspecified-bilateral;Unspecified symptoms and signs involving the musculoskeletal system;Calculus of gallbladder without cholecystitis without obstruction;Unspecified combined systolic (congestive) and diastolic (congestive) heart failure Presentation: 07/06 09:26 Chief complaint: Patient states: Right flank pain x 1 week that has become worse. vg1 Denies burning with urination or blood in urine, denies N/V. Last BM this morning. Coronavirus screen: Vaccine status: Patient reports receiving the 2nd dose of the covid vaccine. Client denies travel out of the [place] in the last 14 days. Ebola Screen: Patient negative for fever greater than or equal to 101.5 degrees Fahrenheit, and additional compatible Ebola Virus Disease symptoms Patient denies exposure to infectious person. Patient denies travel to an Ebola-affected area in the 21 days before illness onset. Initial Sepsis Screen: Does the patient meet any 2 criteria? No. Patient's initial sepsis screen is negative. Does the patient have a suspected source of infection? No. Patient's initial sepsis screen is negative. Risk Assessment: Do you want to hurt yourself or someone else? Patient reports no desire to harm self or others. Onset of symptoms was June 29, 2022. 09:26 Method Of Arrival: Ambulatory 1 09:26 Acuity: OSVALDO 3 vg1 Triage Assessment: 09:28 General: Appears in no apparent distress. uncomfortable, Behavior is calm, cooperative. vg1 Pain: Complains of pain in Right flank Pain currently is 7 out of 10 on a pain scale. Neuro: Level of Consciousness is awake, alert, obeys commands, Oriented to person, place, time, situation. GI: Patient currently denies nausea, vomiting. : Denies burning with urination, inability to void. Historical: - Allergies: 09:28 Bactrim; vg1 09:28 Ciprofloxacin; vg1 09:28 Crestor; vg1 09:28 FLU VACCINE; vg1 09:28 Fosamax; vg1 09:28 Januvia; vg1 09:28 Minocycline; vg1 09:28 pneumonia vaccine; vg1 09:28 Sulfa (Sulfonamide Antibiotics); vg1 09:28 Victoza 2-Denny; vg1 - PMHx: 09:28 Hypertension; Diabetes - IDDM; Colitis; colonoscopy; Diverticulitis; epidural steroid vg1 injections; Gastric Reflux; hiatal hernia; Hyperlipidemia; irregular heart beat; PE; peptic ulcer; PUD; TIA; - PSHx: 09:28 cystocyle; heart stent; hernia; parathyroid; Total abdominal hysterectomy; vg1 - Immunization history:: Client reports receiving the 2nd dose of the Covid vaccine. - Social history:: Smoking status: Patient denies any tobacco usage or history of. - Family history:: not pertinent. Screenin:[facility] ED Fall Risk Assessment (Adult) History of falling in the last 3 months, kr3 including since admission No falls in past 3 months (0 pts) Confusion or Disorientation No (0 pts) Intoxicated or Sedated No (0 pts) Impaired Gait No (0 pts) Mobility Assist Device Used No (0 pt) Altered Elimination No (0 pt) Score/Fall Risk Level 0 - 2 = Low Risk Oriented to surroundings, Maintained a safe environment, Educated pt \T\ family on fall prevention, incl call for assistance when getting out of bed, Assessed \T\ reinforced patient's understanding of fall precautions, Hourly rounding (assess needs \T\ fall precautionary measures) done. Abuse screen: Denies threats or abuse. Nutritional screening: No deficits noted. Tuberculosis screening: No symptoms or risk factors identified. Assessment: 10:30 Reassessment: Patient appears in no apparent distress at this time. Patient and/or kr3 family updated on plan of care and expected duration. Pain level reassessed. Patient is alert, oriented x 3, equal unlabored respirations, skin warm/dry/pink. 11:30 Reassessment: Patient appears in no apparent distress at this time. Patient and/or kr3 family updated on plan of care and expected duration. Pain level reassessed. Patient is alert, oriented x 3, equal unlabored respirations, skin warm/dry/pink. 12:30 Reassessment: Patient appears in no apparent distress at this time. Patient and/or kr3 family updated on plan of care and expected duration. Pain level reassessed. Patient is alert, oriented x 3, equal unlabored respirations, skin warm/dry/pink. 13:30 Reassessment: Patient appears in no apparent distress at this time. Patient and/or kr3 family updated on plan of care and expected duration. Pain level reassessed. Patient is alert, oriented x 3, equal unlabored respirations, skin warm/dry/pink. 14:24 Reassessment: Patient appears in no apparent distress at this time. Patient and/or kr3 family updated on plan of care and expected duration. Pain level reassessed. Patient is alert, oriented x 3, equal unlabored respirations, skin warm/dry/pink. Vital Signs: 09:26 BP 183 / 82; Pulse 67; Resp 16; Temp 98(O); Pulse Ox 100% on R/A; Weight 81.19 kg; vg1 Height 5 ft. 5 in. ; Pain 7/10; 11:35 BP 162 / 68; Pulse 73; Resp 18; Pulse Ox 98% on R/A; kr3 12:38 BP 157 / 64; Pulse 68; Resp 18; Pulse Ox 96% on R/A; kr3 14:24 BP 139 / 78; Pulse 82; Resp 18; Pulse Ox 98% on R/A; kr3 09:26 Body Mass Index 29.79 (81.19 kg, 165.1 cm) vg1 09:26 Pain Scale: Adult vg1 ED Course: 08:58 Patient arrived in ED. rg4 09:05 Angel Cooley MD is Attending Physician. heaven 09:28 Triage completed. vg1 09:28 Arm band placed on. vg1 09:40 Bed in low position. Call light in reach. Side rails up X 1. kr3 09:49 Gely Cade, RN is Primary Nurse. kr3 10:13 US Abdomen Limited In Process Unspecified. EDMS 10:56 XRAY Chest (1 view) In Process Unspecified. EDMS 11:03 Initial lab(s) drawn, by me, sent to lab. Inserted saline lock: 20 gauge in right em1 antecubital area, using aseptic technique. Blood collected. 11:58 CT Aorta for Dissection In Process Unspecified. EDMS 13:03 Luis E Gonzalez MD is Referral Physician. heaven 13:04 Justin Burgos MD is Referral Physician. heaven 13:04 Addison Castillo MD is Referral Physician. heaven 14:32 No provider procedures requiring assistance completed. IV discontinued, intact, kr3 bleeding controlled, No redness/swelling at site. Pressure dressing applied. Administered Medications: 11:05 Drug: Ondansetron IVP 4 mg Route: IVP; Site: right antecubital; kr3 14:34 Follow up: Response: No adverse reaction kr3 11:10 Drug: fentaNYL (PF) IVP 25 mcg Route: IVP; Site: right antecubital; kr3 14:34 Follow up: Response: No adverse reaction; RASS: Alert and Calm (0) kr3 11:15 Drug: Famotidine IVP 20 mg Route: IVP; Site: right antecubital; kr3 14:33 Follow up: Response: No adverse reaction kr3 12:32 Drug: NS 0.9% IV 1000 ml Route: IV; Rate: 125 ml/hr; Site: right antecubital; kr3 14:34 Follow up: Response: No adverse reaction; IV Status: Completed infusion; IV Intake: kr3 200ml 13:24 Drug: Ketorolac IVP 15 mg Route: IVP; Site: right antecubital; kr3 14:33 Follow up: Response: No adverse reaction kr3 13:30 Drug: MethylPrednisoLONE IVP 125 mg Route: IVP; Site: right antecubital; kr3 14:33 Follow up: Response: No adverse reaction kr3 Medication: 14:33 VIS not applicable for this client. kr3 Intake: 14:34 IV: 200ml; Total: 200ml. kr3 Outcome: 13:04 Discharge ordered by . [facility] 14:32 Discharged to home ambulatory. kr3 14:32 Condition: stable 14:32 Discharge instructions given to patient, Instructed on discharge instructions, follow up and referral plans. medication usage, Demonstrated understanding of instructions, follow-up care, medications, Prescriptions given X 3. 14:35 Patient left the ED. kr3 Signatures: Dispatcher [employer] EDMS Angel Cooley MD MD cha Martinez, Eric emGenesis Chowdary4 Aga Suero, RN RN vg1 Gely Cade RN RN kr3 Corrections: (The following items were deleted from the chart) 09:29 09:28 PMHx: Anemia; vg1 vg1
--- NOTE | 2022-07-06 13:04 | EDPHYS ---
Physician Documentation [facility] Name: Jeannette Thomas Age: 87 yrs Sex: Female : 1935 Arrival Date: 07/06/2022 Time: 08:58 Bed 15 Private MD: Angel Diallo HPI: 07/06 09:43 This 87 yrs old Female presents to ER via Ambulatory with complaints of Flank heaven Pain, Abdominal Pain. 09:43 The patient complains of pain in the right mid back. heaven 09:43 The patient presents with abdominal pain in the right upper quadrant. Onset: The heaven symptoms/episode began/occurred 3 day(s) ago. The pain radiates to the right mid back. Onset: The symptoms/episode began/occurred 3 day(s) ago. Modifying factors: The symptoms are alleviated by nothing. the symptoms are aggravated by nothing. Associated signs and symptoms: The patient has no apparent associated signs or symptoms. The symptoms radiate to right back. Associated signs and symptoms: none. The symptoms are described as crampy. Modifying factors: The symptoms are alleviated by nothing, the symptoms are aggravated by nothing. Historical: - Allergies: 09:28 Bactrim; vg1 09:28 Ciprofloxacin; vg1 09:28 Crestor; vg1 09:28 FLU VACCINE; vg1 09:28 Fosamax; vg1 09:28 Januvia; vg1 09:28 Minocycline; vg1 09:28 pneumonia vaccine; vg1 09:28 Sulfa (Sulfonamide Antibiotics); vg1 09:28 Victoza 2-Denny; vg1 - PMHx: 09:28 Hypertension; Diabetes - IDDM; Colitis; colonoscopy; Diverticulitis; epidural steroid vg1 injections; Gastric Reflux; hiatal hernia; Hyperlipidemia; irregular heart beat; PE; peptic ulcer; PUD; TIA; - PSHx: 09:28 cystocyle; heart stent; hernia; parathyroid; Total abdominal hysterectomy; vg1 - Immunization history:: Client reports receiving the 2nd dose of the Covid vaccine. - Social history:: Smoking status: Patient denies any tobacco usage or history of. - Family history:: not pertinent. ROS: 09:43 Constitutional: Negative for fever, chills, and weight loss, Eyes: Negative for injury, heaven pain, redness, and discharge, ENT: Negative for injury, pain, and discharge, Neck: Negative for injury, pain, and swelling, Cardiovascular: Negative for chest pain, palpitations, and edema, Respiratory: Negative for shortness of breath, cough, wheezing, and pleuritic chest pain, Back: Negative for injury and pain, : Negative for injury, bleeding, discharge, and swelling, MS/Extremity: Negative for injury and deformity, Skin: Negative for injury, rash, and discoloration, Neuro: Negative for headache, weakness, numbness, tingling, and seizure. 09:43 Abdomen/GI: Positive for abdominal pain, of the right upper quadrant. Exam: 09:43 Constitutional: This is a well developed, well nourished patient who is awake, alert, heaven and in no acute distress. Head/Face: Normocephalic, atraumatic. Eyes: Pupils equal round and reactive to light, extra-ocular motions intact. Lids and lashes normal. Conjunctiva and sclera are non-icteric and not injected. Cornea within normal limits. Periorbital areas with no swelling, redness, or edema. ENT: Nares patent. No nasal discharge, no septal abnormalities noted. Tympanic membranes are normal and external auditory canals are clear. Oropharynx with no redness, swelling, or masses, exudates, or evidence of obstruction, uvula midline. Mucous membranes moist. Neck: Trachea midline, no thyromegaly or masses palpated, and no cervical lymphadenopathy. Supple, full range of motion without nuchal rigidity, or vertebral point tenderness. No Meningismus. Chest/axilla: Normal chest wall appearance and motion. Nontender with no deformity. No lesions are appreciated. Cardiovascular: Regular rate and rhythm with a normal S1 and S2. No gallops, murmurs, or rubs. Normal PMI, no JVD. No pulse deficits. Respiratory: Lungs have equal breath sounds bilaterally, clear to auscultation and percussion. No rales, rhonchi or wheezes noted. No increased work of breathing, no retractions or nasal flaring. Back: No spinal tenderness. No costovertebral tenderness. Full range of motion. Female : Normal external genitalia. Skin: Warm, dry with normal turgor. Normal color with no rashes, no lesions, and no evidence of cellulitis. MS/ Extremity: Pulses equal, no cyanosis. Neurovascular intact. Full, normal range of motion. Neuro: Awake and alert, GCS 15, oriented to person, place, time, and situation. Cranial nerves II-XII grossly intact. Motor strength 5/5 in all extremities. Sensory grossly intact. Cerebellar exam normal. Normal gait. Psych: Awake, alert, with orientation to person, place and time. Behavior, mood, and affect are within normal limits. 09:43 Abdomen/GI: Inspection: abdomen appears normal, Bowel sounds: normal, active, all quadrants, Palpation: mild abdominal tenderness, in the right upper quadrant, Liver: no appreciated palpable abnormalities, Hernia: not appreciated. 10:08 ECG was reviewed by the Attending Physician. [facility] 12:22 Skin: no rash present. [facility] Vital Signs: 09:26 BP 183 / 82; Pulse 67; Resp 16; Temp 98(O); Pulse Ox 100% on R/A; Weight 81.19 kg; vg1 Height 5 ft. 5 in. ; Pain 7/10; 11:35 BP 162 / 68; Pulse 73; Resp 18; Pulse Ox 98% on R/A; kr3 12:38 BP 157 / 64; Pulse 68; Resp 18; Pulse Ox 96% on R/A; kr3 14:24 BP 139 / 78; Pulse 82; Resp 18; Pulse Ox 98% on R/A; kr3 09:26 Body Mass Index 29.79 (81.19 kg, 165.1 cm) 1 09:26 Pain Scale: Adult vg1 MDM: 09:[address] [facility] 09:43 Differential diagnosis: nephrolithiasis, pyelonephritis, UTI, ruptured AAA, dissecting heaven AAA, AAA, Cholelithiasis, gastritis. Data reviewed: vital signs, nurses notes, lab test result(s), EKG, radiologic studies, CT scan, plain films. Consideration of Admission/Observation Escalation of care including admission/observation considered. I considered the following discharge prescriptions or medication management in the emergency department Medications were administered in the Emergency Department. See MAR. Care significantly affected by the following chronic conditions: Diabetes, Hypertension, Obesity, colitis, diverticulitis. Counseling: I had a detailed discussion with the patient and/or guardian regarding: the historical points, exam findings, and any diagnostic results supporting the discharge/admit diagnosis, lab results, radiology results. 07/06 09:23 Order name: Basic Metabolic Panel; Complete Time: 11:36 [facility] 07/06 09:23 Order name: CBC with Diff; Complete Time: 12:27 [facility] 07/06 09:23 Order name: LFT's; Complete Time: 11:36 [facility] 07/06 09:23 Order name: Magnesium; Complete Time: 11:36 [facility] 07/06 09:23 Order name: NT PRO-BNP; Complete Time: 11:36 [facility] 07/06 09:23 Order name: PT-INR; Complete Time: 11:15 [facility] 07/06 09:23 Order name: Troponin HS; Complete Time: 11:36 [facility] 07/06 09:23 Order name: Lipase; Complete Time: 11:36 [facility] 07/06 09:33 Order name: Urinalysis; Complete Time: 11:09 kr3 07/06 12:27 Order name: CBC Smear Scan; Complete Time: 12:27 EDMS 07/06 13:07 Order name: Glucose, Ancillary Testing EDMS 07/06 09:23 Order name: XRAY Chest (1 view); Complete Time: 11:35 [facility] 07/06 09:23 Order name: CT Aorta for Dissection; Complete Time: 12:50 [facility] 07/06 09:23 Order name: US Abdomen Limited; Complete Time: 11:25 [facility] 07/06 09:23 Order name: EKG; Complete Time: 09:23 [facility] 07/06 09:23 Order name: Cardiac monitoring; Complete Time: 10:48 07/06 09:23 Order name: EKG - Nurse/Tech; Complete Time: 10:48 [facility] 07/06 09:23 Order name: IV Saline Lock; Complete Time: 11:03 [facility] 07/06 09:23 Order name: Labs collected and sent; Complete Time: 11:03 [facility] 07/06 09:23 Order name: O2 Per Protocol; Complete Time: 10:51 [facility] 07/06 09:23 Order name: O2 Sat Monitoring; Complete Time: 10:51 [facility] 07/06 10:04 Order name: Labs - recollect needed; Complete Time: 11:03 em1 EC:08 Rate is 72 beats/min. Rhythm is regular. QRS [place] is Normal. [place] interval is normal. QRS [place] interval is normal. QT interval is normal. No Q waves. T waves are Normal. No ST changes noted. Clinical impression: Normal ECG and No evidence of ischemia. Interpreted by me. Reviewed by me. Administered Medications: 11:05 Drug: Ondansetron IVP 4 mg Route: IVP; Site: right antecubital; kr3 14:34 Follow up: Response: No adverse reaction kr3 11:10 Drug: fentaNYL (PF) IVP 25 mcg Route: IVP; Site: right antecubital; kr3 14:34 Follow up: Response: No adverse reaction; RASS: Alert and Calm (0) kr3 11:15 Drug: Famotidine IVP 20 mg Route: IVP; Site: right antecubital; kr3 14:33 Follow up: Response: No adverse reaction kr3 12:32 Drug: NS 0.9% IV 1000 ml Route: IV; Rate: 125 ml/hr; Site: right antecubital; kr3 14:34 Follow up: Response: No adverse reaction; IV Status: Completed infusion; IV Intake: kr3 200ml 13:24 Drug: Ketorolac IVP 15 mg Route: IVP; Site: right antecubital; kr3 14:33 Follow up: Response: No adverse reaction kr3 13:30 Drug: MethylPrednisoLONE IVP 125 mg Route: IVP; Site: right antecubital; kr3 14:33 Follow up: Response: No adverse reaction kr3 Disposition Summary: 07/06/22 13:04 Discharge Ordered Location: Home heaven Problem: new heaven Symptoms: have improved heaven Condition: Stable heaven Diagnosis - Pleural condition, unspecified - bilateral heaven - Unspecified symptoms and signs involving the musculoskeletal system heaven - Calculus of gallbladder without cholecystitis without obstruction heaven - Unspecified combined systolic (congestive) and diastolic (congestive) heart failure heaven Followup: heaven - With: Private Physician - When: 2 - 3 days - Reason: Recheck today's complaints, Continuance of care, Re-evaluation by your physician Followup: heaven - With: - When: 2 - 3 days - Reason: Recheck today's complaints, Continuance of care, Re-evaluation by your physician Followup: heaven - With: Justin Burgos MD - When: 2 - 3 days - Reason: Recheck today's complaints, Re-evaluation by your physician Followup: heaven - With: Addison Castillo MD - When: 2 - 3 days - Reason: Recheck today's complaints, Re-evaluation by your physician Discharge Instructions: - Discharge Summary Sheet heaven - Biliary Colic, Adult heaven - Heart Failure, Diagnosis heaven - Pleurisy heaven - Heart Failure, Diagnosis, [id number] heaven - Pleurisy, [id number] heaven - Heart Failure Eating Plan [facility] Forms: - Medication Reconciliation Form [facility] - Thank You Letter heaven - Antibiotic Education heaven - Prescription Opioid Use [facility] Prescriptions: - diclofenac sodium 50 mg Oral tablet, delayed release (enteric coated) - take 1 tablet by ORAL route every 12 hours; 20 tablet; Refills: 0, Product [facility] Selection Permitted - Pepcid 20 mg Oral Tablet - take 1 tablet by ORAL route every 12 hours for 10 days; 20 tablet; Refills: 0, [facility] Product Selection Permitted - Medrol (Denny) 4 mg Oral Tablets, Dose Pack - take 1 tablet by ORAL route as directed - follow package instructions; 1 [facility] packet; Refills: 0, Product Selection Permitted Signatures: Dispatcher [employer] Angel Starr MD MD cha Martinez, Claude emAga Chowdary, RN RN vg1 Gely Cade RN RN kr3 Corrections: (The following items were deleted from the chart) 09:29 09:28 PMHx: Anemia; vg1 vg1
[2022-07-06] MEDS ORDERED: KETOROLAC 30 MG/ML INJ ONE (13:42)
[2022-07-06] MEDS ORDERED: METHYLPREDNISOLONE 125 MG INJ ONE (13:42)
[2022-07-06 16:06] VITALS: TEMP 98
[2022-07-06 16:19] VITALS: BP 139/78; O2SAT 98
--- NOTE | 2022-07-07 17:26 | EKG ---
Test Date: 2022-07-06 Test Time: 09:40:44 Sonogram Technician: GIL MEASUREMENT RESULTS: Intervals: Rate: 72 OR: 114 QRSD: 86 QT: 412 QTc: 451 [place]: P: 34 OR: 114 QRS: 63 T: 64 INTERPRETIVE STATEMENTS: Normal sinus rhythm Normal ECG Compared to ECG 10/22/2021 12:46:35 No significant changes Electronically Signed On 07-07-22 17:22:04 CDT by Justin Burgos
== END 2022-07-06 14:35 | disposition home or self-care (01) ==
LOC: ER 08:55
DX: K80.20 Calculus of gallbladder without cholecystitis without obstruction (principal); I50.40 Unspecified combined systolic (congestive) and diastolic (congestive) heart failure; J94.9 Pleural condition, unspecified; R29.91 Unspecified symptoms and signs involving the musculoskeletal system; I10 Essential (primary) hypertension; Z95.818 Presence of other cardiac implants and grafts; Z88.1 Allergy status to other antibiotic agents; Z88.2 Allergy status to sulfonamides; Z88.7 Allergy status to serum and vaccine; Z88.8 Allergy status to other drugs, medicaments and biological substances
CPT/HCPCS: 85025; 80048; 36415; 83735; 85610; 82947; 80076; 81003; 84484; 83690; 83880; 71275; 74175; 71045; 76705; Q9967; J3010; J2930; J2405; J7030; 93005; 96361; 96374; 96375; 99284